=== PATIENT | female | born 1950 | race Caucasian/White ===

== ENCOUNTER 2019-04-01 15:53 | Outpatient (RCR) | payer MEDICARE, SELFPAY ==
--- NOTE | 2019-04-01 16:37 | PTOPEVAL ---
Thank you for referring this patient to [facility]. Please review, sign, date and return this plan of care EMI. I agree with and certify that the following plan of care is medically necessary. Referring Physician Date Admitting Provider: Attending Provider: Jacob Castellano MD Referring Provider: *PT Outpatient Evaluation Start: 04/01/19 16:09 Freq: Status: Active Protocol: Document 04/01/19 16:09 J (Rec: 04/01/19 16:33 [facility] [id number]) Therapy Assessment Status Assessment Status Assessment Status Evaluation Evaluation Information Problem Diagnosis R shoulder/arm pain Onset 03/27/19 Subjective Information patient reports she has been Query Text:As Reported By Patient/ having pain in the R shoulder/ Family arm for about a year. however, she reports the pain initially was related to activity. in the past month, she has had more pain constantly with rest/ inactivity. she reports sleeping on the R side with reproduce pins/needles and pain in the R shoulder/arm. she reports tingling from shoulder to fingers. pain runs from shoulder to elbow. Prior Level of Function Comments Additional Prior Level of Function patient reports she has Comments suffered from pain and weakness for a little over a year. Pain Assessment Timing of Pain Assessment Timing of Pain Assessment Assessment Pain Scale Pain Scale Used Numeric (1 - 10) Self Report Pain Assessment Right Arm(s) Reported Pain Level 1 Pain Description Soreness Pain Frequency Acute,Chronic,Continuous Current Pain Intensity 1 Lowest Pain Intensity 1 Greatest Pain Intensity 7 Pain Aggravating Factors Exercise/Activity Pain Score Pain Score 1: Self Report Cervical and Lumbar ROM Cervical ROM Cervical Flexion (0-60) 45 Query Text:Active in Degrees Cervical Extension (0-70) 45 Query Text:Active in Degrees Upper Extremity Range of Motion Scapular/ Shoulder Range of Motion Right Reason Not Measured WNL/Left Shoulder Flexion - Active 145 Shoulder Flexion - Passive 160 Shoulder Medial Rotation - Active 45 Shoulder Lateral Rotation - Active 70 Upper Extremity Muscle Strength Testing Scapular/Shoulder Left Sh
== END 2019-06-30 23:59 | disposition home or self-care (01) ==
LOC: CHSPT 15:53
PROVIDERS: Visit Provider Internal Medicine
DX: M25.511 Pain in right shoulder (principal)
CPT/HCPCS: 97014; 97110; 97162; G0283

== ENCOUNTER 2019-09-11 07:13 | Outpatient (CLI) | payer MEDICARE, SELFPAY ==
[2019-09-11 07:38] LABS: Hematocrit 41.7 % (35.0-42.0); Mean Corpuscular HGB Conc 33.6 g/dL (32.0-36.0); Mean Corpuscular Hemoglobin 29.1 pg (27.0-31.0); Mean Corpuscular Volume 86.7 fL (78.0-102.0); Mean Platelet Volume 9.5 fl (9.2-11.8); Platelet Count Result 162 K/mm3 (150-420); Red Blood Count 4.81 M/mm3 (4.20-5.40); Red Cell Distribution Width 12.7 % (11.6-14.4); White Blood Count 3.7 K/mm3 (4.8-10.8)
[2019-09-11 07:39] LABS: Add Urine Microscopic? YES; Appearance Urine Clear (Clear); Bilirubin Urine Negative (Negative); Blood Urine Negative (Negative); Color Urine Yellow (Yellow); Glucose Urine UA Negative (Negative); Ketones Urine Negative (Negative); Leukocyte Esterase Ur Trace (Negative); Nitrate Urine Negative (Negative); Protein Urine Negative (Negative); Specific Grav Ur 1.015 (1.010-1.020); Urobilinogen Urine 0.2 mg/dL (0.2-1.0)
[2019-09-11 07:44] LABS: RBC Urine 0-2 /hpf (0-2); Squamous Epithelial Cell Urine Moderate /hpf (Few); WBC Urine 0-3 /hpf (0-3)
[2019-09-11 07:45] LABS: Bacteria Urine Trace /hpf
[2019-09-11 07:49] LABS: Creatinine Urine 57.48 mg/dL (40-278); Hemoglobin A1C 6.4 % (<5.7); MALB Creatinine Ratio 10.2 mg/g (0-30); Microalbumin Urine Random 5.9 mg/L
[2019-09-11 07:58] LABS: Band Neutrophils Percent 0 % (0-6); Basophils Absolute Manual 0.03 K/mm3 (0-0.1); Basophils Percent Manual 1 % (0-1); Eosinophils Absolute Manual 0.14 K/mm3 (0.02-0.5); Eosinophils Percent Manual 4 % (1-6); Lymphocytes Absolute Manual 1.77 K/mm3 (1.1-4.5); Lymphocytes Percent Manual 48 % (18-44); Monocytes Absolute Manual 0.37 K/mm3 (0.1-0.90); Monocytes Percent Manual 10 % (3-9); Neutrophils Absolute Manual 1.36 K/mm3 (1.7-7.2); Neutrophils Percent Manual 37 % (46-73); Platelet Estimate Adequate (Adequate); Total Cells Counted 100
[2019-09-11 08:58] LABS: Alanine Aminotransferase 39 U/L (14-59); Albumin Level 3.8 g/dL (3.4-5.0); Alkaline Phosphatase 165 U/L (46-116); Anion Gap 11.4 mmol/L (7-16); Aspartate Amino Transferase 40 U/L (15-37); Bilirubin,Total 0.7 mg/dL (0.00-1.00); Blood Urea Nitrogen 15 mg/dL (7-18); Calcium 9.5 mg/dL (8.5-10.1); Carbon Dioxide 29 mmol/L (21-32); Chloride 101 mmol/L (98-108); Cholesterol 199 mg/dL (0-200); Creatine Kinase 58 U/L (26-192); Estimated Glomerular Filt Rate > 60; GGT 144 U/L (5-55); Glucose 124 mg/dL (70-99); HDL Direct 74 mg/dL (40-60); LDL Cholesterol Calculated 112 mg/dL (<130); Osmolality Calculated 285 mOsm/kg (285-295); Potassium 4.4 mmol/L (3.5-5.1); Sodium 137 mmol/L (136-145); Thyroid Stimulating Hormone 2.19 uIU/mL (0.36-3.74); Total Protein 7.2 g/dL (6.4-8.2); Triglycerides 65 mg/dL (0-150)
[2019-09-13 08:41] LABS: Vitamin D 25 Hydroxy 25 ng/mL (30-100)
[2019-09-16 17:28] LABS: Alpha Fetoprotein Tumor Marker 3.3 ng/mL (<6.1)
== END 2019-09-11 07:14 | disposition home or self-care (01) ==
PROVIDERS: PCP Internal Medicine; Visit Provider Internal Medicine
DX: E78.2 Mixed hyperlipidemia (principal); M81.0 Age-related osteoporosis without current pathological fracture; K74.60 Unspecified cirrhosis of liver; E11.9 Type 2 diabetes mellitus without complications; R53.82 Chronic fatigue, unspecified
CPT/HCPCS: 36415; 80053; 80061; 81001; 82043; 82105; 82306; 82550; 82977; 83036; 84439; 84443; 85025; 85610

== ENCOUNTER 2020-01-26 10:29 | Outpatient (CLI) | payer MEDICARE, SELFPAY ==
--- NOTE | ~2020-01-26 | MM_ITS ---
EXAMINATION: MM screening lance BI w kami HISTORY: Screening mammogram TECHNIQUE: Craniocaudal and mediolateral oblique 3-D tomosynthesis images were obtained and synthetic 2-D images were generated. CAD analysis was submitted and interpreted. COMPARISON: 01/20/2019, 01/08/2018, 12/28/2016 bilateral digital screening mammogram examinations BREAST PARENCHYMAL COMPOSITION: There are scattered areas of fibroglandular density. FINDINGS: There is an irregular up to approximately 11 mm opacity in the inner aspect of the upper in ner quadrant of the left breast. Diagnostic left mammogram and left breast ultrasound examination are recommended. Otherwise there Is no evidence of suspicious mass, calcification, or architectural distortion to sugg est malignancy in either breast. There has been no other suspicious interval change. IMPRESSION: 1. Irregular mass in inner aspect of upper inner quadrant of left breast 2. Diagnostic left mammogram and left breast ultrasound examination are recommended BI-RADS Category 0: Incomplete: Needs additional imaging evaluation. Reviewed, dictated and finalized at location A. IMPRESSION: 1. Irregular mass in inner aspect of upper inner quadrant of left breast 2. Diagnostic left mammogram and left breast ultrasound examination are recomme nded BI-RADS Category 0: Incomplete: Needs additional imaging evaluation.
== END 2020-01-26 10:30 | disposition home or self-care (01) ==
LOC: CHSIMG 10:30
PROVIDERS: PCP Internal Medicine; Visit Provider Internal Medicine
DX: Z12.31 Encounter for screening mammogram for malignant neoplasm of breast (principal)
CPT/HCPCS: 77063; 77067

== ENCOUNTER 2020-02-06 09:42 | Outpatient (CLI) | payer MEDICARE, SELFPAY ==
--- NOTE | ~2020-02-06 | MMUS_ITS ---
EXAMINATION: MM diagnostic lance LT w kami, US breast LT limited HISTORY: Possible left breast mass on screening mammogram TECHNIQUE: Additional 3-D tomosynthesis images of the left breast were performed and synthetic 2-D im ages were generated. CAD analysis was submitted and interpreted. High resolution limited left breast ultrasound was performed. COMPARISON: 01/26/2020, 01/20/2019, 01/08/2018, 12/28/2016 FINDINGS: MAMMOGRAPHIC FINDINGS: No definite persistent mass is identified with spot compression views of the left breast in the area questioned on screening mammogram. There is return to baseline appearance. ULTRASOUND: There is no evidence of focal abnormal solid or cystic lesion in the vicinity of the mammographic fin ding in question. IMPRESSION: 1. No mammographic or sonographic evidence of malignancy. 2. Recommend routine screening mammography in one year. BI-RADS Category 1: Negative Reviewed, dictated and finalized at location A. IMPRESSION: 1. No mammographic or sonographic evidence of malignancy. 2. Recommend routine screening mammography in one year. BI-RADS Category 1: Negative
== END 2020-02-06 09:43 | disposition home or self-care (01) ==
LOC: CHSIMG 09:43
PROVIDERS: PCP Internal Medicine; Visit Provider Internal Medicine
DX: R92.8 Other abnormal and inconclusive findings on diagnostic imaging of breast (principal)
CPT/HCPCS: 76642; 77061; 77065; G0279

== ENCOUNTER 2020-03-17 07:36 | Outpatient (CLI) | payer MEDICARE, SELFPAY ==
[2020-03-17 07:52] LABS: Add Urine Microscopic? YES; Appearance Urine Clear (Clear); Bilirubin Urine Negative (Negative); Blood Urine Negative (Negative); Color Urine Yellow (Yellow); Glucose Urine UA Negative (Negative); Hematocrit 42.8 % (35.0-42.0); Ketones Urine Negative (Negative); Leukocyte Esterase Ur 1+ (Negative); Mean Corpuscular HGB Conc 32.7 g/dL (32.0-36.0); Mean Corpuscular Hemoglobin 28.7 pg (27.0-31.0); Mean Corpuscular Volume 87.9 fL (78.0-102.0); Mean Platelet Volume 9.5 fl (9.2-11.8); Nitrate Urine Negative (Negative); Platelet Count Result 170 K/mm3 (150-420); Protein Urine Negative (Negative); Red Blood Count 4.87 M/mm3 (4.20-5.40); Red Cell Distribution Width 12.6 % (11.6-14.4); Specific Grav Ur 1.015 (1.010-1.020); White Blood Count 3.2 K/mm3 (4.8-10.8)
[2020-03-17 07:57] LABS: Bacteria Urine Trace /hpf; RBC Urine 0-2 /hpf (0-2); Squamous Epithelial Cell Urine Moderate /hpf (Few)
[2020-03-17 08:06] LABS: Hemoglobin A1C 5.8 % (<5.7)
[2020-03-17 08:21] LABS: Band Neutrophils Percent 2 % (0-6); Neutrophils Absolute Manual 1.72 K/mm3 (1.7-7.2); Neutrophils Percent Manual 52 % (46-73); Total Cells Counted 100
[2020-03-17 08:22] LABS: Eosinophils Absolute Manual 0.03 K/mm3 (0.02-0.5); Eosinophils Percent Manual 1 % (1-6); Lymphocytes Absolute Manual 1.28 K/mm3 (1.1-4.5); Lymphocytes Percent Manual 40 % (18-44); Metamyelocytes Percent 1 %; Monocytes Absolute Manual 0.12 K/mm3 (0.1-0.90); Monocytes Percent Manual 4 % (3-9); Platelet Estimate Adequate (Adequate)
[2020-03-17 09:02] LABS: Alanine Aminotransferase 35 U/L (14-59); Albumin Level 4.1 g/dL (3.4-5.0); Alkaline Phosphatase 159 U/L (46-116); Anion Gap 8 mmol/L (8-16); Aspartate Amino Transferase 40 U/L (15-37); Bilirubin,Total 0.8 mg/dL (0.00-1.00); Blood Urea Nitrogen 14 mg/dL (7-18); Calcium 9.2 mg/dL (8.5-10.1); Carbon Dioxide 29 mmol/L (21-32); Chloride 101 mmol/L (98-108); Cholesterol 214 mg/dL (0-200); Creatine Kinase 100 U/L (26-192); Estimated Glomerular Filt Rate > 60; Glucose 135 mg/dL (70-99); HDL Direct 79 mg/dL (40-60); LDL Cholesterol Calculated 116 mg/dL (<130); Osmolality Calculated 288 mOsm/kg (285-295); Potassium 4.1 mmol/L (3.5-5.1); Sodium 138 mmol/L (136-145); Total Protein 7.4 g/dL (6.4-8.2); Triglycerides 96 mg/dL (0-150)
[2020-03-17 13:43] LABS: Creatinine Urine 95.32 mg/dL (40-278); MALB Creatinine Ratio 7.6 mg/g (0-30); Microalbumin Urine Random 7.3 mg/L
[2020-03-20 12:57] LABS: Vitamin D 25 Hydroxy 26 ng/mL (30-100)
== END 2020-03-17 07:37 | disposition home or self-care (01) ==
LOC: CHSLAB 07:38
PROVIDERS: PCP Internal Medicine; Visit Provider Internal Medicine
DX: E78.2 Mixed hyperlipidemia (principal); E11.9 Type 2 diabetes mellitus without complications; M81.0 Age-related osteoporosis without current pathological fracture
CPT/HCPCS: 36415; 80053; 80061; 81001; 82043; 82306; 82550; 83036; 85025

== ENCOUNTER 2020-10-05 07:44 | Outpatient (CLI) | payer MEDICARE, SELFPAY ==
[2020-10-05 08:14] LABS: Hematocrit 40.3 % (35.0-42.0); Hemoglobin 13.5 g/dL (11.7-13.8); Mean Corpuscular HGB Conc 33.5 g/dL (32.0-36.0); Mean Corpuscular Hemoglobin 29.5 pg (27.0-31.0); Mean Platelet Volume 9.6 fl (9.2-11.8); Platelet Count Result 163 K/mm3 (150-420); Red Blood Count 4.58 M/mm3 (4.20-5.40); Red Cell Distribution Width 12.6 % (11.6-14.4); White Blood Count 3.4 K/mm3 (4.8-10.8)
[2020-10-05 08:17] LABS: Add Urine Microscopic? YES; Appearance Urine Clear (Clear); Bilirubin Urine Negative (Negative); Blood Urine Negative (Negative); Color Urine Yellow (Yellow); Glucose Urine UA Negative (Negative); Ketones Urine Negative (Negative); Leukocyte Esterase Ur 2+ (Negative); Nitrate Urine Negative (Negative); Protein Urine Negative (Negative)
[2020-10-05 08:22] LABS: Bacteria Urine 1+ /hpf; RBC Urine None seen /hpf (0-2); Squamous Epithelial Cell Urine Few /hpf (Few)
[2020-10-05 08:25] LABS: Hemoglobin A1C 6.4 % (<5.7)
[2020-10-05 08:27] LABS: Prothrombin Time 10.3 Seconds (9.50-12.10)
[2020-10-05 08:52] LABS: MALB Creatinine Ratio 14.8 mg/g (0-30); Microalbumin Urine Random < 13.0 mg/L
[2020-10-05 08:55] LABS: Band Neutrophils Percent 0 % (0-6); Lymphocytes Absolute Manual 1.83 K/mm3 (1.1-4.5); Lymphocytes Percent Manual 54 % (18-44); Monocytes Absolute Manual 0.23 K/mm3 (0.1-0.90); Monocytes Percent Manual 7 % (3-9); Neutrophils Absolute Manual 1.29 K/mm3 (1.7-7.2); Neutrophils Percent Manual 38 % (46-73); Total Cells Counted 100
[2020-10-05 08:56] LABS: Eosinophils Absolute Manual 0.03 K/mm3 (0.02-0.5); Eosinophils Percent Manual 1 % (1-6); Platelet Estimate Adequate (Adequate)
[2020-10-05 09:03] LABS: Alanine Aminotransferase 33 U/L (14-59); Albumin Level 3.7 g/dL (3.4-5.0); Alkaline Phosphatase 149 U/L (46-116); Anion Gap 5 mmol/L (8-16); Aspartate Amino Transferase 33 U/L (15-37); Bilirubin,Total 0.8 mg/dL (0.00-1.00); Blood Urea Nitrogen 17 mg/dL (7-18); Calcium 9.1 mg/dL (8.5-10.1); Carbon Dioxide 31 mmol/L (21-32); Chloride 103 mmol/L (98-108); Cholesterol 196 mg/dL (0-200); Creatine Kinase 96 U/L (26-192); Estimated Glomerular Filt Rate > 60; Glucose 142 mg/dL (70-99); HDL Direct 71 mg/dL (40-60); LDL Cholesterol Calculated 114 mg/dL (<130); Osmolality Calculated 291 mOsm/kg (285-295); Potassium 4.7 mmol/L (3.5-5.1); Sodium 139 mmol/L (136-145); Triglycerides 56 mg/dL (0-150)
[2020-10-08 11:22] LABS: Vitamin D 25 Hydroxy 25 ng/mL (30-100)
[2020-10-08 22:54] LABS: Alpha Fetoprotein Tumor Marker 2.8 ng/mL (<6.1)
== END 2020-10-05 07:45 | disposition home or self-care (01) ==
LOC: CHSLAB 07:46
PROVIDERS: PCP Internal Medicine; Visit Provider Internal Medicine
DX: E78.2 Mixed hyperlipidemia (principal); I10 Essential (primary) hypertension; E11.9 Type 2 diabetes mellitus without complications; K74.60 Unspecified cirrhosis of liver; M81.0 Age-related osteoporosis without current pathological fracture
CPT/HCPCS: 36415; 80053; 80061; 81001; 82043; 82105; 82306; 82550; 83036; 85025; 85610

== ENCOUNTER 2020-12-07 10:20 | Outpatient (CLI) | payer MEDICARE, SELFPAY ==
[2020-12-07] MEDS: ZOLEDRONIC ACID 5 MG/100 ML 100 ML 400 MG IVPB (10:25)
[2020-12-07 10:41] VITALS: BP 126/70; PULSE 76; RESP 14; TEMP 36.6; O2SAT 97; BMI 27.6
--- NOTE | 2020-12-07 11:19 | PC.NURSE ---
Patient here for yearly Reclast infusion. Education on Medication given to patient. No concerns voiced. Reclast infusion administered see JUL. Tolerated well. Safe exit of hospital.
== END 2020-12-07 10:21 | disposition home or self-care (01) ==
LOC: CHSTREATRM 10:21
PROVIDERS: PCP Internal Medicine; Visit Provider Internal Medicine
DX: M81.0 Age-related osteoporosis without current pathological fracture (principal)
CPT/HCPCS: 96365; J3489

== ENCOUNTER 2021-02-07 07:58 | Outpatient (CLI) | payer MEDICARE, SELFPAY ==
--- NOTE | ~2021-02-07 | MM_ITS ---
EXAMINATION: MM screening [facility] BI w kami HISTORY: Screening mammogram TECHNIQUE: Craniocaudal and mediolateral oblique 3-D tomosynthesis images were obtained and synthetic 2-D images were generated. CAD analysis was submitted and interpreted. COMPARISON: 02/06/2020, 01/26/2020, 01/20/2019 BREAST PARENCHYMAL COMPOSITION: There are scattered areas of fibroglandular density. FINDINGS: Scattered benign-appearing calcifications are present. There is no evidence of suspicious m ass, calcification, or architectural distortion to suggest malignancy in either breast. There has bee n no suspicious interval change. IMPRESSION: 1. No mammographic evidence of malignancy. 2. Recommend routine screening mammography in one year. BI-RADS Category 2: Benign finding(s). Reviewed, dictated and finalized at location A.
== END 2021-02-07 07:59 | disposition home or self-care (01) ==
LOC: CHSIMG 07:59
PROVIDERS: PCP Internal Medicine; Visit Provider Internal Medicine
DX: Z12.31 Encounter for screening mammogram for malignant neoplasm of breast (principal)
CPT/HCPCS: 77063; 77067

== ENCOUNTER 2021-03-18 18:20 | Emergency (ER) | payer MEDICARE, SELFPAY ==
--- NOTE | ~2021-03-18 | XR_ITS ---
EXAMINATION: XR wrist RT min 3V EXAM DATE: 03/18/2021 20:19 INDICATION: Fall today, right wrist pain. TECHNIQUE: Right wrist frontal, frontal with slight ulnar deviation, oblique and lateral projections obtained and reviewed. There is no prior study for comparison. FINDINGS: Acute closed posttraumatic comminuted right radial distal metaphyseal fracture extending in to the distal radioulnar joint and also probably into the radiocarpal joint. Mild posterior angulatio n and posterior displacement of a dorsal fragment. There is acute ulnar styloid avulsion fracture. Th ere is overlying soft tissue swelling. Carpal bones unremarkable. There is chondrocalcinosis. Chondrocalcinosis can be an age related findin g, but with other possible etiologies including CPPD, parathyroid disorders, hemochromatosis, gout. IMPRESSION: 1. Acute comminuted right distal radial metaphyseal intra-articular fracture. 2. Acute ulnar styloid avulsion fracture. Reviewed, dictated and finalized at location A. [employer] HOME SERV[employer]
[2021-03-18 18:55] VITALS: BP 139/67; PULSE 58; RESP 14; TEMP 36.9; O2SAT 99
--- NOTE | 2021-03-18 19:25 | ED.UPPEXIN ---
HPI - Extremity Injury (Upper) General Chief Complaint: Extremity Injury, Upper Stated Complaint: injury to rt wrist Time Seen by Provider: 03/18/21 19:25 Source: patient Mode of arrival: ambulatory Limitations: no limitations History of Present Illness HPI narrative: 71-year-old woman with a history of type 2 diabetes, liver disease, comes in today complaining of right wrist pain that started approximately 2:30 this afternoon after she tripped and fell on her outstretched right hand. She has had pain in her wrist since. She denies any numbness or tingling. She denies any prior right wrist surgeries or fractures. She denies any other injury and had no preceding lightheadedness, dizziness, chest pain or palpitations. MD complaint: injury to: right and wrist Onset (ago): hour(s) (5) Other injuries: none Place: home Severity: moderate Relieving factors: immobilization and rest Exacerbating factors: movement of extremity and other ( palpation) Context: fall Associated symptoms: denies other symptoms Treatments prior to arrival: NSAIDS Related Data Home Medications Medication Instructions Recorded Confirmed alendronate 70 mg PO WEEKLY 12/07/20 03/18/21 atorvastatin 10 mg PO DAILY 12/07/20 03/18/21 calcitriol 0.5 mcg PO DAILY 12/07/20 03/18/21 metformin 500 mg PO BID 12/07/20 03/18/21 nadolol 20 mg PO DAILY 12/07/20 03/18/21 pantoprazole 20 mg PO QAM 12/07/20 03/18/21 Allergies Allergy/AdvReac Type Severity Reaction Status Date / Time Sulfa (Sulfonamide AdvReac Hives Verified 03/18/21 19:22 Antibiotics) Review of Systems Review of Systems: All systems reviewed & are unremarkable except as noted in HPI and below Constitutional: Constitutional: Denies chills and Denies fever(s) Cardiovascular: Cardiovascular: Denies chest pain and Denies rapid heart rate Respiratory: Respiratory: Denies cough and Denies dyspnea Gastrointestinal: Gastrointestinal: Denies nausea and Denies vomiting Musculoskeletal: Musculoskeletal: Denies back pain, Reports arthralgias and Reports joint swelling Integumentary/Breasts: Skin/Breast: Denies pruritus, Denies erythema and Denies rash Hematologic/Lymphatic: Hematologic/Lymphatic: Denies easy bleeding and Denies easy bruising PMF Past Medical History Medical History (Updated 03/18/21 @ 20:46 by Benjamin Aguiar MD) Dyslipidemia GERD (gastroesophageal reflux disease) Hypertension Liver disease Type 2 diabetes mellitus Surgical History Surgical History (Updated 03/18/21 @ 19:36 by Benjamin Aguiar MD) History of cholecystectomy History of tonsillectomy Exam Const: General: healthy appearing and alert Orientation/consciousness: patient oriented x3 Limitations: no limitations Other: [id number]-uw-[id number] acute distress. Eyes: Conjunctivae: conjunctivae normal Pupils: Equal, round and reactive pupils present EOM: EOMs intact bilaterally Resp: Effort & Inspection: normal respiratory effort and not labored Auscultation: clear to auscultation bilaterally, no rales, no rhonchi and no wheezes Cardio: Rate: regular rate Rhythm: regular rhythm Heart sounds: no murmurs Skin: General skin exam: normal color, no jaundice and no pallor Rashes: no rashes Neuro: General: patient oriented x3, moves all extremities, no focal motor deficits and CN's II-XI intact bilaterally Speech: normal speech Gait exam (Neuro): Normal gait present Extrem: General: normal to inspection and no clubbing, cyanosis or edema Other: Tenderness over the right distal radius where there is also some mild swelling. There is no tenderness over the carpals, metacarpals, fingers, proximal forearm, elbow, humerus or shoulder. Decreased range of motion at the right wrist otherwise range of motion of the upper extremities is normal. Distal neurovascular exam is intact. Psych: Appearance: grossly normal and well kempt Mental Status: mental status grossly normal Affect: normal affect Attitude: alexander
[2021-03-18] MEDS: HYDROcodone/acetaminophen (*CRX) 5-325 MG TABLET 1 TAB PO (19:41)
--- NOTE | 2021-03-18 20:44 | PC.NURSE ---
Call to [facility] for oncall ortho per ERP request. Dr Nickerson production finisher for ortho and cell given to contact Dr Nickerson for consult.
[2021-03-18 21:11] VITALS: BP 143/69; PULSE 58; RESP 20; TEMP 36.6; O2SAT 97
== END 2021-03-18 21:13 | disposition home or self-care (01) ==
PROVIDERS: Emergency Provider Emergency Medicine; PCP Internal Medicine
DX: S52.611A Displaced fracture of right ulna styloid process, initial encounter for closed fracture (principal); S52.571A Other intraarticular fracture of lower end of right radius, initial encounter for closed fracture; E78.5 Hyperlipidemia, unspecified; K21.9 Gastro-esophageal reflux disease without esophagitis; I10 Essential (primary) hypertension; E11.9 Type 2 diabetes mellitus without complications
CPT/HCPCS: 29125; 73110; 99283; 99284; A9270

== ENCOUNTER 2021-04-08 08:01 | Outpatient (RCR) | payer MEDICARE, SELFPAY ==
--- NOTE | 2021-04-08 08:44 | OTOPEVAL ---
Thank you for referring Agnieszka Sultana to [facility].? The patient is scheduled to be seen for therapy? ____x/week for ___ weeks. Please review, sign, date and return this plan of care EMI. I agree with and certify that the following plan of care is medically necessary. Referring Physician Date Admitting Provider: Attending Provider: Roosevelt Gan MD Referring Provider: *OT Outpatient Evaluation Start: 04/08/21 07:21 Freq: Status: Active Protocol: Document 04/08/21 07:23 [facility] [place] (Rec: 04/08/21 08:42 [facility] [id number]) Therapy Assessment Status Assessment Status Assessment Status Evaluation Outpatient Past Medical History Cardiovascular History Hx Hypercholesterolemia Yes Gastrointestinal History Hx Cholecystectomy Yes Hx Gastroesophageal Reflux Disease Yes Hx Other Gastrointestinal Disorders Yes: liver disease Endocrine History Hx Diabetes Yes HEENT History Hx Tonsillectomy Yes Reproductive History Hx Post Menopausal Yes Evaluation Information Problem Diagnosis decreased R wrist ROM and strength Onset 03/18/21 Cause R distal radius ORIF Subjective Information Patient reports that she fell Query Text:As Reported By Patient/ on 03/18/21 and broke her R Family wrist. She opted to have surgery and had surgery on . Patient reports that recovery has been going well. She states that she has been able to use it to perform most ADLs. Patient has a wrist cock up orthosis and sling that she is intermittently wearing. Patent is unable to lift, twist, pull or push with her R hand (dominant). She states that eating and brushing her teeth are both awkward. She states that her R hand tires easily with writing and playing her violin . QuickDASH: 65.9% Diagnostic Tests X-Rays For This Problem Yes Prior Level of Function Activity Level (Last 3 Months) Occupation retired Hand Dominance Right Activity of Daily Living Ability Independent Indoor/Home Mobility Independent Community Mobility Independent Stairs Ability Independent Functional Cognition (Planning, Shopping Independent , Primo
--- NOTE | 2021-04-26 13:33 | OTOPEVAL ---
Thank you for referring Agnieszka Sultana to [facility].? The patient is scheduled to be seen for therapy? ____x/week for ___ weeks. Please review, sign, date and return this plan of care EMI. I agree with and certify that the following plan of care is medically necessary. Referring Physician Date Admitting Provider: Attending Provider: Shane Graham NP Referring Provider: *OT Outpatient Evaluation Start: 04/08/21 07:21 Freq: Status: Active Protocol: Document 04/26/21 07:30 [facility] [place] (Rec: 04/26/21 13:33 [facility] [id number]) Therapy Assessment Status Assessment Status Assessment Status Progress Outpatient Past Medical History Cardiovascular History Hx Hypercholesterolemia Yes Gastrointestinal History Hx Cholecystectomy Yes Hx Gastroesophageal Reflux Disease Yes Hx Other Gastrointestinal Disorders Yes: liver disease Endocrine History Hx Diabetes Yes HEENT History Hx Tonsillectomy Yes Reproductive History Hx Post Menopausal Yes Evaluation Information Problem Subjective Information Patient states that she is Query Text:As Reported By Patient/ able to do more and more with Family her R hand every day. She notes occasional achiness. Patient reports that she was able to brush her teeth more accurately this morning. Pain Assessment Timing of Pain Assessment Timing of Pain Assessment Re-assessment Self Report Self Report Pain Level 0 Pain Score Pain Score 0: Self Report Upper Extremity Range of Motion Elbow/Forearm Range of Motion Right Forearm Supination - Active 55 Wrist Range of Motion Right Wrist Flexion - Active 40 Wrist Extension - Active 55 Wrist Radial Deviation - Active 20 Wrist Ulnar Deviation - Active 20 Hand Field Hockey Coach/Pinch Strength Assessment Hand Right Field Hockey Coach Strength (lbs) 21 Left Field Hockey Coach Strength (lbs) 42 Sensation Assessment Location Right 2 Point Discrimination Comments patient reports occasional numbness in base of palm and occasional tingling that wakes her up at night. Extremity Circumference Assessment Circumference Assessment Circumference Comments R wrist: 19.0 cm General Exercise General Exercises Exercise Comments see treatment note for details Manual Therapy Manual Therapy Treatment Comments see treatment note for details Query Text:Include Technique and Result of Technique Modalities Electrical Stimulation Right Wrist Response to Treatment Comments see treatment note for details OT Clinical Summary Clinical Summary
--- NOTE | 2021-05-16 10:00 | OTOPEVAL ---
Thank you for referring Agnieszka Sultana to [facility].? The patient is scheduled to be seen for therapy? ____x/week for ___ weeks. Please review, sign, date and return this plan of care EMI. I agree with and certify that the following plan of care is medically necessary. Referring Physician Date Admitting Provider: Attending Provider: Shane Graham NP Referring Provider: AdrianOT Outpatient Evaluation Start: 04/08/21 07:21 Freq: Status: Active Protocol: Document 05/16/21 09:00 [facility] [place]Rec: 05/16/21 09:59 [facility] [id number]) Therapy Assessment Status Assessment Status Assessment Status Discharge Outpatient Past Medical History Cardiovascular History Hx Hypercholesterolemia Yes Gastrointestinal History Hx Cholecystectomy Yes Hx Gastroesophageal Reflux Disease Yes Hx Other Gastrointestinal Disorders Yes: liver disease Endocrine History Hx Diabetes Yes HEENT History Hx Tonsillectomy Yes Reproductive History Hx Post Menopausal Yes Evaluation Information Problem Subjective Information Patient reports that overall Query Text:As Reported By Patient/ her R wrist is doing very well Family . She states that occasionally it will bother her if she does to much but pain decreases with rest. Patient is in agreement with discharge plan. Pain Assessment Timing of Pain Assessment Timing of Pain Assessment Pre-Treatment Self Report Self Report Pain Level 0 Pain Score Pain Score 0: Self Report Upper Extremity Range of Motion Elbow/Forearm Range of Motion Right Forearm Supination - Active 60 Wrist Range of Motion Right Wrist Flexion - Active 40 Wrist Extension - Active 55 Wrist Radial Deviation - Active 20 Wrist Ulnar Deviation - Active 20 Hand Admeasurer/Pinch Strength Assessment Hand Right Admeasurer Strength (lbs) 28 Extremity Circumference Assessment Circumference Assessment Circumference Comments R wrist: 18.5 cm General Exercise General Exercises Side Right Exercise Description wrist maze x 3 min Query Text:Record Sets, Reps, pink putty resisting: standard Resistance, and Position turn with large knob, 10 reps x 2 and functional pull with L-bar x 10 reps 2# resisting: R wrist extension, supination and radial deviation, 20 reps x 1 set red thera-bar resisting bilateral gr
== END 2021-05-16 15:14 | disposition home or self-care (01) ==
LOC: CHSOT 08:01
PROVIDERS: PCP Internal Medicine; Visit Provider Nurse Practitioner Adult Health
DX: Z98.890 Other specified postprocedural states (principal)
CPT/HCPCS: 97014; 97110; 97140; 97165; G0283

== ENCOUNTER 2021-04-13 07:50 | Outpatient (CLI) | payer MEDICARE, SELFPAY ==
[2021-04-13 08:02] LABS: Basophils Absolute Auto 0.05 K/mm3 (0.00-0.10); Basophils Percent Auto 1.2 % (0.0-1.0); Eosinophils Absolute Auto 0.25 K/mm3 (0.02-0.50); Eosinophils Percent Auto 6.2 % (1.0-6.0); Hematocrit 40.8 % (35.0-42.0); Hemoglobin 13.6 g/dL (11.7-13.8); Immature Granulocyte Absolute 0.02 K/mm3 (0.00-0.00); Immature Granulocyte Percent A 0.5 % (0.0-0.0); Lymphocytes Absolute Auto 1.86 K/mm3 (1.10-4.50); Lymphocytes Percent Auto 46.2 % (18.0-42.0); Mean Corpuscular HGB Conc 33.3 g/dL (32.0-36.0); Mean Corpuscular Hemoglobin 29.4 pg (27.0-31.0); Mean Corpuscular Volume 88.3 fL (78.0-102.0); Mean Platelet Volume 9.4 fl (9.2-11.8); Monocytes Percent Auto 9.9 % (2.0-11.0); Neutrophils Absolute Auto 1.5 K/mm3 (1.7-7.2); Platelet Count Result 164 K/mm3 (150-420); Red Blood Count 4.62 M/mm3 (4.20-5.40); Red Cell Distribution Width 12.6 % (11.6-14.4)
[2021-04-13 08:26] LABS: Add Urine Microscopic? YES; Appearance Urine Clear (Clear); Bilirubin Urine Negative (Negative); Blood Urine Negative (Negative); Color Urine Light Yellow (Yellow); Glucose Urine UA Negative (Negative); Ketones Urine Negative (Negative); Leukocyte Esterase Ur Trace (Negative); Nitrate Urine Negative (Negative); Protein Urine Negative (Negative); Specific Grav Ur 1.015 (1.010-1.020); pH Urine 7.5 (5.0-8.0)
[2021-04-13 08:30] LABS: Hemoglobin A1C 6.7 % (<5.7)
[2021-04-13 08:42] LABS: Creatinine Urine 55.38 mg/dL (40-278); MALB Creatinine Ratio 23.4 mg/g (0-30); Microalbumin Urine Random < 13.0 mg/L
[2021-04-13 09:04] LABS: Bacteria Urine Trace /hpf; RBC Urine None seen /hpf (0-2); Squamous Epithelial Cell Urine Few /hpf (Few); WBC Urine 0-3 /hpf (0-3)
[2021-04-13 09:15] LABS: Alanine Aminotransferase 43 U/L (14-59); Albumin Level 3.7 g/dL (3.4-5.0); Alkaline Phosphatase 188 U/L (46-116); Anion Gap 8 mmol/L (8-16); Aspartate Amino Transferase 38 U/L (15-37); Bilirubin,Total 0.9 mg/dL (0.00-1.00); Blood Urea Nitrogen 14 mg/dL (7-18); Calcium 9.2 mg/dL (8.5-10.1); Carbon Dioxide 30 mmol/L (21-32); Chloride 102 mmol/L (98-108); Cholesterol 216 mg/dL (0-200); Creatine Kinase 48 U/L (26-192); Estimated Glomerular Filt Rate > 60; Glucose 142 mg/dL (70-99); HDL Direct 69 mg/dL (40-60); LDL Cholesterol Calculated 119 mg/dL (<130); Osmolality Calculated 292 mOsm/kg (285-295); Potassium 4.4 mmol/L (3.5-5.1); Sodium 140 mmol/L (136-145); Total Protein 7.1 g/dL (6.4-8.2); Triglycerides 139 mg/dL (0-150)
[2021-04-16 13:40] LABS: Vitamin D 25 Hydroxy 23 ng/mL (30-100)
== END 2021-04-13 07:51 | disposition home or self-care (01) ==
LOC: CHSLAB 07:51
PROVIDERS: PCP Internal Medicine; Visit Provider Internal Medicine
DX: E78.2 Mixed hyperlipidemia (principal); M81.0 Age-related osteoporosis without current pathological fracture; K74.60 Unspecified cirrhosis of liver; E11.9 Type 2 diabetes mellitus without complications
CPT/HCPCS: 36415; 80053; 80061; 81001; 82043; 82306; 82550; 83036; 85025

== ENCOUNTER 2021-04-18 13:21 | Outpatient (CLI) | payer MEDICARE, SELFPAY ==
--- NOTE | ~2021-04-18 | DEXA_ITS ---
Bone Density Report Name: MED RCANDALL Age: 71 Sex: Female Ethnicity: White Date of : 1950 Indication: postmenopausal; screening for osteoporosis; height loss; prior fracture; Referring Provider: Jacob Castellano Study: Bone densitometry was performed. Exam Date: April 18, 2021 Accession number: [id number] Bone Density: Region BMD T-score Z-score Classification AP Spine(L1-L4) 1.119 0.7 2.7 Normal Femoral Neck (Left) 0.753 -0.9 0.9 Normal Total Hip (Left) 0.807 -1.1 0.4 Osteopenia Femoral Neck (Right) 0.776 -0.7 1.1 Normal Total Hip (Right) 0.776 -1.4 0.1 Osteopenia Femoral Neck Mean 0.765 -0.8 1.0 Normal Total Hip Mean 0.792 -1.2 0.2 Osteopenia World Health Organization criteria for BMD impression classify patients as: Normal (T-score at or above -1.0), Osteopenia (T-score between -1.0 and -2.5), or Osteoporosis (T-score at or below -2.5). 10-year Fracture Risk: FRAX not reported because: Treated for osteoporosis Clinical Information Provided by Patient: Has had a low trauma fracture Is being treated for osteoporosis Has used the following medications: Reclast (i.e. zoledronate), Vitamin D, Calcium, caloitrol Patient maximum height was 67 Menopause Age: 60 No regular weight bearing exercise Drinks caffeinated beverages Onset of menses at age 14 Number of children 3 Impression: The patient has low bone mass, based on the Right Total Hip T-score. The patient has risk factors, including: previous fracture. Discussion: It is important to ask patients whether they are taking their medications and to encourage continued and appropriate compliance with their osteoporosis therapies to reduce fracture risk. It is also important to review their risk factors and encourage appropriate calcium and vitamin D intakes, exercise, fall prevention and other lifestyle measures. Follow-Up: Consider a repeat BMD and Vertebral Fracture Assessment (VFA) exam in 2 years or sooner if medically necessary, to reassess this patient's status. Reported by: Dr. Juanito Giraldo on 04/18/2021 1:57:00 PM. Reviewed, dictated and finalized at location AAnn-Marie MARTINEZ
== END 2021-04-18 13:22 | disposition home or self-care (01) ==
PROVIDERS: PCP Internal Medicine; Visit Provider Internal Medicine
DX: M81.0 Age-related osteoporosis without current pathological fracture (principal)
CPT/HCPCS: 77080

== ENCOUNTER 2021-04-22 08:26 | Outpatient (CLI) | payer MEDICARE, SELFPAY ==
--- NOTE | ~2021-04-22 | XR_ITS ---
EXAMINATION: XR hip BI wo pelvis EXAM DATE: 04/22/2021 08:47 INDICATION: Osteoarthritis B/L Hips, frequent falls. TECHNIQUE: Each hip imaged independently (separate right and also left hip) 'frog leg' and frontal p rojections for interpretation. Compared to prior right hip x-ray from 02/06/2012 FINDINGS: No radiographic evidence of hip avascular necrosis. There is moderate symmetric bilateral primary osteoarthritis. There are no acute fractures or dislocations identified. There is no subcuta neous gas. The soft tissue is unremarkable. There are no radiopaque foreign bodies. IMPRESSION: Moderate symmetric bilateral hip osteoarthritis. Reviewed, dictated and finalized at location B. [employer]
== END 2021-04-22 08:27 | disposition home or self-care (01) ==
LOC: CHSIMG 08:28
PROVIDERS: PCP Internal Medicine; Visit Provider Internal Medicine
DX: M16.0 Bilateral primary osteoarthritis of hip (principal)
CPT/HCPCS: 73521

== ENCOUNTER 2021-04-26 07:55 | Outpatient (RCR) | payer MEDICARE, SELFPAY ==
--- NOTE | 2021-04-26 09:59 | PTOPEVAL ---
Thank you for referring Agnieszka Sultana to [facility].? The patient is scheduled to be seen for therapy? ____x/week for ___ weeks. Please review, sign, date and return this plan of care EMI. I agree with and certify that the following plan of care is medically necessary. Referring Physician Date Admitting Provider: Attending Provider: Jacob Castellano MD Referring Provider: *PT Outpatient Evaluation Start: 04/26/21 08:34 Freq: Status: Active Protocol: Document 04/26/21 08:35 [facility] (Rec: 04/26/21 09:57 [facility] [id number]) Therapy Assessment Status Assessment Status Assessment Status Evaluation Outpatient Past Medical History Cardiovascular History Hx Hypercholesterolemia Yes Gastrointestinal History Hx Cholecystectomy Yes Hx Gastroesophageal Reflux Disease Yes Hx Other Gastrointestinal Disorders Yes: liver disease Endocrine History Hx Diabetes Yes HEENT History Hx Tonsillectomy Yes Reproductive History Hx Post Menopausal Yes Evaluation Information Problem Diagnosis frequent falls Onset 03/18/21 Subjective Information patient reports she fell on Query Text:As Reported By Patient/ the R hand on 03/18/21. she Family reports she fractured 2 bones in her wrist and had surgery on 03/24/21. she reports she has been attending OT for her wrist, but reports she would like to start working on her balance and now is seeking skilled PT for this issue. patient reports she has had pain in the knees. she reports she had xrays of the hips last week with degenerative changes. patient reports most frequently when she feels she will catch her toe or trip over something. Prior Level of Function Comments Additional Prior Level of Function patient reports prior to fall Comments that fractured her hand she has had falls in the past. she reports in the last year she has had 1 fall. Pain Assessment Timing of Pain Assessment Timing of Pain Assessment Assessment Pain Scale Pain Scale Used Numeric (1 - 10) Self Report Pain Assessment Right Wrist(s) Reported Pain Level 0 Pain Description Aching Pain Score Pain Score 0: Self Report In
--- NOTE | 2021-05-24 08:36 | PTOPEVAL ---
Thank you for referring Agnieszka Sultana to [facility].? The patient is scheduled to be seen for therapy? ____x/week for ___ weeks. Please review, sign, date and return this plan of care EMI. I agree with and certify that the following plan of care is medically necessary. Referring Physician Date Admitting Provider: Attending Provider: Jacob Castellano MD Referring Provider: *PT Outpatient Evaluation Start: 04/26/21 08:34 Freq: Status: Active Protocol: Document 05/24/21 08:05 [facility] (Rec: 05/24/21 08:35 [facility] [id number]) Therapy Assessment Status Assessment Status Assessment Status Discharge Outpatient Past Medical History Cardiovascular History Hx Hypercholesterolemia Yes Gastrointestinal History Hx Cholecystectomy Yes Hx Gastroesophageal Reflux Disease Yes Hx Other Gastrointestinal Disorders Yes: liver disease Endocrine History Hx Diabetes Yes HEENT History Hx Tonsillectomy Yes Reproductive History Hx Post Menopausal Yes Evaluation Information Problem Diagnosis frequent falls Onset 03/18/21 Subjective Information patient reports she feels Query Text:As Reported By Patient/ Good this date. she reports Family she still has some discomfort in the R wrist at times with pulling activities. she reports no falls. Pain Assessment Timing of Pain Assessment Timing of Pain Assessment Assessment Self Report Self Report Pain Level 0 Pain Score Pain Score 0: Self Report Lower Extremity Muscle Strength Testing General Lower Extremity Strength Gross Lower Extremity Strength 5/5 bilateral hip flex strength 5/5 bilateral knee strength 5/5 bilateral ankle strength Balance Assessment Tinetti Balance Assessment Sitting Balance Steady, safe Ability to Arise Able, w/o using arms Attempts to Arise Arises on 1st attempt Immediate Standing Balance Steady w/o support Standing Balance Narrow stance w/o support Nudged Response Steady Standing with Eyes Closed Steady Step Pattern Turning 360 Degrees Continuous steps Stability Turning 360 Degrees Steady Sitting Down Safe, steady Initiation of Gait No hesitancy Right Foot Step Length Does pass stance foot Right Foot Step Height Completely clears floor Left Foot Step Length Does pass stance foot Left Foot Step Height Completely clears floor Step Symmetry Step length appears equal Step Continuity S
== END 2021-05-24 15:18 | disposition home or self-care (01) ==
LOC: CHSPT 07:55
PROVIDERS: PCP Internal Medicine; Visit Provider Internal Medicine
DX: R29.6 Repeated falls (principal)
CPT/HCPCS: 97110; 97161; 97530

== ENCOUNTER 2021-06-28 07:46 | Outpatient (CLI) | payer MEDICARE, SELFPAY ==
--- NOTE | ~2021-06-28 | US_ITS ---
EXAMINATION: US right upper quadrant DATE: 06/28/2021 08:04 INDICATION: Ascites and cirrhosis TECHNIQUE: Multiple grayscale and Doppler ultrasound images of the abdomen were obtained. COMPARISON: 03/31/2019 FINDINGS: Bowel gas obscures visualization of the pancreas. The visualized portions of the pancreas a re unremarkable. The liver demonstrates coarsened echotexture. There is nodularity of the liver surfa ce. No ascites is identified. Normal hepatopetal flow in the main portal vein. The gallbladder is emlonie gically absent. The normal common bile duct measures 3 mm. IMPRESSION: 1. Cirrhosis. Reviewed, dictated and finalized at location F. M GENERATING POWERPLANT MECHANIC IMPRESSION: 1. Cirrhosis.
== END 2021-06-28 07:47 | disposition home or self-care (01) ==
LOC: CHSIMG 07:49
PROVIDERS: PCP Internal Medicine
DX: K74.60 Unspecified cirrhosis of liver (principal); K74.3 Primary biliary cirrhosis; R19.8 Other specified symptoms and signs involving the digestive system and abdomen
CPT/HCPCS: 76705

== ENCOUNTER 2021-09-05 08:16 | Outpatient (CLI) | payer MEDICARE, SELFPAY ==
[2021-09-05 08:33] LABS: Hematocrit 38.8 % (35.0-42.0); Hemoglobin 13.1 g/dL (11.7-13.8); Mean Corpuscular HGB Conc 33.8 g/dL (32.0-36.0); Mean Corpuscular Hemoglobin 30.1 pg (27.0-31.0); Mean Corpuscular Volume 89.2 fL (78.0-102.0); Mean Platelet Volume 9.5 fl (9.2-11.8); Platelet Count Result 151 K/mm3 (150-420); Red Blood Count 4.35 M/mm3 (4.20-5.40); Red Cell Distribution Width 12.6 % (11.6-14.4); White Blood Count 3.7 K/mm3 (4.8-10.8)
[2021-09-05 08:34] LABS: Add Urine Microscopic? YES; Appearance Urine Clear (Clear); Bilirubin Urine Negative (Negative); Blood Urine Negative (Negative); Color Urine Light Yellow (Yellow); Glucose Urine UA Negative (Negative); Ketones Urine Negative (Negative); Leukocyte Esterase Ur 2+ (Negative); Nitrate Urine Negative (Negative); Protein Urine Negative (Negative); Urobilinogen Urine 0.2 mg/dL (0.2-1.0); pH Urine 6.5 (5.0-8.0)
[2021-09-05 08:43] LABS: RBC Urine None seen /hpf (0-2)
[2021-09-05 08:44] LABS: Bacteria Urine Trace /hpf; Squamous Epithelial Cell Urine Few /hpf (Few)
[2021-09-05 08:46] LABS: Creatinine Urine 65.44 mg/dL (40-278); MALB Creatinine Ratio 19.8 mg/g (0-30); Microalbumin Urine Random < 13.0 mg/L
[2021-09-05 08:50] LABS: Hemoglobin A1C 6.5 % (<5.7)
[2021-09-05 08:53] LABS: Alanine Aminotransferase 28 U/L (14-59); Albumin Level 3.7 g/dL (3.4-5.0); Alkaline Phosphatase 142 U/L (46-116); Anion Gap 6 mmol/L (8-16); Aspartate Amino Transferase 33 U/L (15-37); Bilirubin,Total 0.9 mg/dL (0.00-1.00); Blood Urea Nitrogen 14 mg/dL (7-18); Calcium 9.2 mg/dL (8.5-10.1); Carbon Dioxide 28 mmol/L (21-32); Chloride 102 mmol/L (98-108); Cholesterol 189 mg/dL (0-200); Creatine Kinase 91 U/L (26-192); Estimated Glomerular Filt Rate > 60; Glucose 146 mg/dL (70-99); HDL Direct 63 mg/dL (40-60); LDL Cholesterol Calculated 104 mg/dL (<130); Osmolality Calculated 285 mOsm/kg (285-295); Potassium 4.1 mmol/L (3.5-5.1); Sodium 136 mmol/L (136-145); Total Protein 7.1 g/dL (6.4-8.2); Triglycerides 112 mg/dL (0-150)
[2021-09-05 09:03] LABS: Band Neutrophils Percent 0 % (0-6); Neutrophils Absolute Manual 1.59 K/mm3 (1.7-7.2); Neutrophils Percent Manual 43 % (46-73); Total Cells Counted 100
[2021-09-05 09:04] LABS: Eosinophils Absolute Manual 0.07 K/mm3 (0.02-0.5); Eosinophils Percent Manual 2 % (1-6); Lymphocytes Absolute Manual 1.62 K/mm3 (1.1-4.5); Lymphocytes Percent Manual 44 % (18-44); Monocytes Percent Manual 11 % (3-9); Platelet Estimate Adequate (Adequate)
[2021-09-07 14:27] LABS: Vitamin D 25 Hydroxy 23 ng/mL (30-100)
== END 2021-09-05 08:17 | disposition home or self-care (01) ==
LOC: CHSLAB 08:17
PROVIDERS: PCP Internal Medicine; Visit Provider Internal Medicine
DX: E78.2 Mixed hyperlipidemia (principal); E11.9 Type 2 diabetes mellitus without complications; I10 Essential (primary) hypertension; M81.0 Age-related osteoporosis without current pathological fracture
CPT/HCPCS: 36415; 80053; 80061; 81001; 82043; 82306; 82550; 83036; 85025

== ENCOUNTER 2021-09-14 08:27 | Outpatient (CLI) | payer MEDICARE, SELFPAY ==
--- NOTE | ~2021-09-14 | CT_ITS ---
EXAMINATION: CT abdomen pelvis w con DATE: 09/14/2021 08:54 INDICATION: Abdominal pain, discomfort, belching, bloating for one year, worse over the past 3 weeks. Hematuria. Recent urinary tract infection. TECHNIQUE: Computed tomography (CT) of the abdomen and pelvis was performed with 100 CC Omnipaque 350 intravenous contrast. Automated exposure control and iterative reconstruction technique were employe d. Exam dose: 513.01 mGy-cm total exam DLP. COMPARISON: 06/28/2021 right upper quadrant abdominal ultrasound 09/24/2017 CT abdomen pelvis FINDINGS: There is minimal posterior medial right lower lobe pulmonary infiltrate. Normal heart size. No pericardial or pleural effusion. There is surface nodularity of the liver consistent with cirrhosis. No hepatic space-occupying mass l esion is evident. Status post cholecystectomy. No bile duct or pancreatic duct dilatation. No pancreatic mass lesion or perisplenic calcified granulomas consistent with old granulomatous disease. The spleen measures up t o 10 cm vertical dimension, within normal range. Normal morphology of the adrenal glands. No renal mass lesion or urinary tract calculus or hydroureteronephrosis. The urinary bladder, uterus and adnexal areas are unremarkable other than 1.4 cm left ovarian cyst. Normal appendix. Mild colonic diverticulosis; no CT evidence of diverticulitis. No bowel obstruction, bowel wall thickening, pneumatosis or intraperitoneal free air. There is atherosclerotic calcification of the abdominal aorta and iliac arteries but no aneurysm. No intraperitoneal or retroperitoneal or pelvic mass lesion or adenopathy or ascites. Degenerative changes of the lower thoracic spine and the lumbar spine including prominent degenerativ e disease at L4-5 and L5-S1. Prominent bilateral hip osteoarthritis. No suspicious osteolytic or osteoblastic lesions. IMPRESSION: Cirrhosis Status post cholecystectomy Colonic diverticulosis Normal appendix Reviewed, dictated and finalized at Location A. Reviewed, dictated and finalized at location B.
== END 2021-09-14 08:28 | disposition home or self-care (01) ==
LOC: CHSIMG 08:28
PROVIDERS: PCP Internal Medicine; Visit Provider Internal Medicine
DX: K74.60 Unspecified cirrhosis of liver (principal); K57.90 Diverticulosis of intestine, part unspecified, without perforation or abscess without bleeding; R10.9 Unspecified abdominal pain; R30.0 Dysuria
CPT/HCPCS: 74177; Q9967

== ENCOUNTER 2021-12-15 09:15 | Outpatient (CLI) | payer MEDICARE, SELFPAY ==
--- NOTE | 2021-12-15 09:20 | PC.NURSE ---
Pt to OP infusion center amb. A&Ox3. Has no questions or concerns. Plan of care explained. Oriented to room. Reminded to voice needs.
[2021-12-15] MEDS: ZOLEDRONIC ACID 5 MG/100 ML 100 ML 400 MG IVPB (09:34)
--- NOTE | 2021-12-15 09:50 | PC.NURSE ---
Reclast infused as ordered. Pt tolerated well. Has no complaints. Discharged to home amb per self.
== END 2021-12-15 09:16 | disposition home or self-care (01) ==
LOC: CHSTREATRM 09:17
PROVIDERS: PCP Internal Medicine; Visit Provider Internal Medicine
DX: M81.0 Age-related osteoporosis without current pathological fracture (principal)
CPT/HCPCS: 96365; 96374; J3489

== ENCOUNTER 2022-02-13 07:26 | Outpatient (CLI) | payer MEDICARE, SELFPAY ==
--- NOTE | ~2022-02-13 | MM_ITS ---
EXAMINATION: MM screening lance BI w kami HISTORY: Screening TECHNIQUE: Craniocaudal and mediolateral oblique 3-D tomosynthesis images were obtained and synthetic 2-D images were generated. CAD analysis was submitted and interpreted. COMPARISON: No prior mammogram is available for comparison at this institution. BREAST PARENCHYMAL COMPOSITION: There are scattered areas of fibroglandular density. FINDINGS: There is no evidence of suspicious mass, calcification, or architectural distortion to sugg est malignancy in either breast. There has been no suspicious interval change. IMPRESSION: 1. No mammographic evidence of malignancy. 2. Recommend routine screening mammography in one year. BI-RADS Category 1: Negative Reviewed, dictated and finalized at location A.
== END 2022-02-13 07:27 | disposition home or self-care (01) ==
LOC: CHSIMG 07:27
PROVIDERS: PCP Internal Medicine; Visit Provider Internal Medicine
DX: Z12.31 Encounter for screening mammogram for malignant neoplasm of breast (principal)
CPT/HCPCS: 77063; 77067

== ENCOUNTER 2022-03-07 08:08 | Outpatient (CLI) | payer MEDICARE, SELFPAY ==
[2022-03-07 08:23] LABS: Appearance Urine Clear (Clear); Bilirubin Urine Negative (Negative); Blood Urine Negative (Negative); Glucose Urine UA Negative (Negative); Hematocrit 38.8 % (35.0-42.0); Hemoglobin 13.1 g/dL (11.7-13.8); Ketones Urine Negative (Negative); Leukocyte Esterase Ur 2+ LEU/UL (Negative); Mean Corpuscular HGB Conc 33.8 g/dL (32.0-36.0); Mean Corpuscular Hemoglobin 29.6 pg (27.0-31.0); Mean Corpuscular Volume 87.6 fL (78.0-102.0); Mean Platelet Volume 9.2 fl (9.2-11.8); Nitrate Urine Negative (Negative); Platelet Count Result 149 K/mm3 (150-420); Protein Urine Negative (Negative); Red Blood Count 4.43 M/mm3 (4.20-5.40); Red Cell Distribution Width 12.6 % (11.6-14.4); Specific Grav Ur 1.015 (1.010-1.020); White Blood Count 3.2 K/mm3 (4.8-10.8)
[2022-03-07 08:33] LABS: Add Urine Microscopic? YES; Bacteria Urine Trace /hpf; Color Urine Light Yellow (Yellow); RBC Urine None seen /hpf (0-2); Squamous Epithelial Cell Urine Few /hpf (Few)
[2022-03-07 08:37] LABS: Hemoglobin A1C 6.7 % (<5.7)
[2022-03-07 08:48] LABS: Alanine Aminotransferase 35 U/L (14-59); Albumin Level 3.7 g/dL (3.4-5.0); Alkaline Phosphatase 137 U/L (46-116); Anion Gap 6 mmol/L (8-16); Aspartate Amino Transferase 38 U/L (15-37); Bilirubin,Total 0.7 mg/dL (0.00-1.00); Blood Urea Nitrogen 16 mg/dL (7-18); Calcium 9.2 mg/dL (8.5-10.1); Carbon Dioxide 31 mmol/L (21-32); Chloride 105 mmol/L (98-108); Cholesterol 191 mg/dL (0-200); Estimated Glomerular Filt Rate > 60; Glucose 142 mg/dL (70-99); HDL Direct 66 mg/dL (40-60); LDL Cholesterol Calculated 109 mg/dL (<130); Osmolality Calculated 297 mOsm/kg (285-295); Potassium 4.6 mmol/L (3.5-5.1); Sodium 142 mmol/L (136-145); Triglycerides 82 mg/dL (0-150)
[2022-03-07 09:08] LABS: Band Neutrophils Percent 1 % (0-6); Eosinophils Absolute Manual 0.06 K/mm3 (0.02-0.5); Eosinophils Percent Manual 2 % (1-6); Lymphocytes Absolute Manual 1.53 K/mm3 (1.1-4.5); Lymphocytes Percent Manual 48 % (18-44); Monocytes Absolute Manual 0.35 K/mm3 (0.1-0.90); Monocytes Percent Manual 11 % (3-9); Neutrophils Absolute Manual 1.24 K/mm3 (1.7-7.2); Neutrophils Percent Manual 38 % (46-73); Platelet Estimate Adequate (Adequate); Schistocytes None Seen (NORMAL); Total Cells Counted 100
[2022-03-12 19:16] LABS: Vitamin D 25 Hydroxy 26 ng/mL (30-100)
== END 2022-03-07 08:09 | disposition home or self-care (01) ==
LOC: CHSLAB 08:11
PROVIDERS: PCP Internal Medicine; Visit Provider Internal Medicine
DX: E78.2 Mixed hyperlipidemia (principal); E11.9 Type 2 diabetes mellitus without complications; K74.60 Unspecified cirrhosis of liver; R30.0 Dysuria; M81.0 Age-related osteoporosis without current pathological fracture
CPT/HCPCS: 36415; 80053; 80061; 81001; 82306; 83036; 85025; 87077; 87086; 87088

== ENCOUNTER 2022-04-02 14:22 | Emergency (ER) | payer MEDICARE, SELFPAY ==
--- NOTE | 2022-04-02 14:25 | ED.EXTPRO ---
HPI - Extremity Problem General Chief complaint: Extremity Injury, Upper Stated complaint: left wrist cast tight, fingers turning blue Time Seen by Provider: 04/02/22 14:25 Source: patient and RN notes reviewed Mode of arrival: ambulatory Limitations: no limitations History of Present Illness HPI Narrative: Patient sustained a left wrist fracture 4 days ago. She went to another facility and had OCL placed. She complains that since last evening her fingers have felt more tingly swollen and look like they are turning blue. she says she has some mild nagging pain in her fingers. Still has pain in her wrist. MD Complaint: extremity pain and extremity swelling Onset (ago): day(s) (1) Pain Consistency: constant Location: left and upper extremity Quality: aching, dull and constant Radiation: none Relieving factors: nothing Exacerbating factors: nothing Associated symptoms: denies other symptoms Context: immobilization Related Data Home Medications Medication Instructions Recorded Confirmed alendronate 70 mg tablet 70 mg PO WEEKLY 12/07/20 04/02/22 atorvastatin 10 mg tablet 10 mg PO DAILY 12/07/20 04/02/22 calcitriol 0.5 mcg capsule 0.5 mcg PO DAILY 12/07/20 04/02/22 metformin 500 mg tablet 500 mg PO BID 12/07/20 04/02/22 nadolol 20 mg tablet 20 mg PO DAILY 12/07/20 04/02/22 pantoprazole 20 mg tablet,delayed 20 mg PO QAM 12/07/20 04/02/22 release Allergies Allergy/AdvReac Type Severity Reaction Status Date / Time Sulfa (Sulfonamide AdvReac Hives Verified 04/02/22 14:44 Antibiotics) Review of Systems Review of Systems: All systems reviewed & are unremarkable except as noted in HPI and below PMFSH Past Medical History Medical History (Updated 04/02/22 @ 14:35 by Kevin Reyes MD) Dyslipidemia GERD (gastroesophageal reflux disease) Hypertension Liver disease Type 2 diabetes mellitus Surgical History Surgical History History of cholecystectomy History of tonsillectomy Exam Const: General: healthy appearing, no acute distress and alert Nutritional Appearance: well nourished Orientation/consciousness: patient oriented x3 Limitations: no limitations HENMT: Head: normal to inspection Ears: external ears normal Eyes: Conjunctivae: conjunctivae normal Pupils: Equal, round and reactive pupils present EOM: EOMs intact bilaterally Neck: Neck: normal visual inspection Resp: Effort & Inspection: normal respiratory effort Auscultation: clear to auscultation bilaterally Cardio: Rate: regular rate Rhythm: regular rhythm GI: GI Palp: Yes Soft to palpation and No Tenderness to palpation present (GI) Auscultation: normal bowel sounds Back/Spine/Pelvis: Cervical Spine: cervical ROM normal Thoracic/Lumbar Spine: thoraco-lumbar ROM normal Skin: General skin exam: normal color Rashes: no rashes Neuro: General: patient oriented x3, moves all extremities, no focal motor deficits and CN's II-XI intact bilaterally Speech: normal speech Gait exam (Neuro): Normal gait present Extrem: General: normal exam except as noted Left upper extremity: wrist ( OCL splint in place see comments below) Other: OCL splint on the left forearm. The fingers show some evidence of increased ecchymosis which could be waterfall effect from broken blood vessels from recent fracture. Fingers are swollen. Decreased sensation light touch to the left thumb. The Felix wraps were taken down patient has immediate improvement in her feeling. She says pain is improved. There is no evidence of compartment syndrome. The Felix wraps are we wrapped over the OCL and patient feels much better. She is given instructions on how to rewrap as necessary. Psych: Mental Status: mental status grossly normal Affect: normal affect Attitude: cooperative Course Vital Signs Vital signs: Vital Signs Temperature 36.1 C L 04/02/22 14:36 Pulse Rate 72 04/02/22 14:36 Respiratory Rate 16
[2022-04-02 14:36] VITALS: BP 118/69; PULSE 72; RESP 16; TEMP 36.1; O2SAT 97
[2022-04-02 14:55] VITALS: BP 118/69; PULSE 72; RESP 16; TEMP 36.1; O2SAT 97
== END 2022-04-02 14:56 | disposition home or self-care (01) ==
PROVIDERS: Emergency Provider Emergency Medicine; PCP Internal Medicine
DX: M25.532 Pain in left wrist (principal)
CPT/HCPCS: 99281

== ENCOUNTER 2022-09-13 07:35 | Outpatient (CLI) | payer MEDICARE, SELFPAY ==
[2022-09-13 07:50] LABS: Hematocrit 38.9 % (35.0-42.0); Hemoglobin 13.2 g/dL (11.7-13.8); Mean Corpuscular HGB Conc 33.9 g/dL (32.0-36.0); Mean Corpuscular Hemoglobin 30.2 pg (27.0-31.0); Mean Platelet Volume 9.7 fl (9.2-11.8); Platelet Count Result 152 K/mm3 (150-420); Red Blood Count 4.37 M/mm3 (4.20-5.40); Red Cell Distribution Width 12.7 % (11.6-14.4); White Blood Count 3.5 K/mm3 (4.8-10.8)
[2022-09-13 07:52] LABS: Appearance Urine Clear (Clear); Bilirubin Urine Negative (Negative); Blood Urine Negative (Negative); Color Urine Light Yellow (Yellow); Glucose Urine UA Negative (Negative); Ketones Urine Negative (Negative); Leukocyte Esterase Ur 1+ (Negative); Nitrate Urine Negative (Negative); Protein Urine Negative (Negative)
[2022-09-13 07:54] LABS: Add Urine Microscopic? YES; Bacteria Urine Trace /hpf; RBC Urine None seen /hpf (0-2); Squamous Epithelial Cell Urine Moderate /hpf (Few); WBC Urine 0-3 /hpf (0-3)
[2022-09-13 08:01] LABS: Band Neutrophils Percent 2 % (0-6); Eosinophils Absolute Manual 0.07 K/mm3 (0.02-0.5); Eosinophils Percent Manual 2 % (1-6); Lymphocytes Absolute Manual 1.57 K/mm3 (1.1-4.5); Lymphocytes Percent Manual 45 % (18-44); Monocytes Absolute Manual 0.24 K/mm3 (0.1-0.90); Monocytes Percent Manual 7 % (3-9); Neutrophils Absolute Manual 1.61 K/mm3 (1.7-7.2); Neutrophils Percent Manual 44 % (46-73); Platelet Estimate Adequate (Adequate); Total Cells Counted 100
[2022-09-13 08:15] LABS: Creatinine Urine 65.84 mg/dL (40-278); MALB Creatinine Ratio 19.7 mg/g (0-30); Microalbumin Urine Random < 13.0 mg/L
[2022-09-13 08:18] LABS: Hemoglobin A1C 6.7 % (<5.7)
[2022-09-13 08:48] LABS: Alanine Aminotransferase 33 U/L (14-59); Albumin Level 3.6 g/dL (3.4-5.0); Alkaline Phosphatase 145 U/L (46-116); Anion Gap 9 mmol/L (8-16); Aspartate Amino Transferase 34 U/L (15-37); Blood Urea Nitrogen 15 mg/dL (7-18); CRP < 0.5 mg/dL (0.0-0.9); Calcium 9.4 mg/dL (8.5-10.1); Carbon Dioxide 27 mmol/L (21-32); Chloride 104 mmol/L (98-108); Cholesterol 187 mg/dL (0-200); Estimated Glomerular Filt Rate > 60; Free T3 3.11 pg/mL (2.18-3.98); Free T4 Free Thyroxine 1.39 ng/dL (0.76-1.46); Glucose 152 mg/dL (70-99); HDL Direct 73 mg/dL (40-60); LDL Cholesterol Calculated 94 mg/dL (<130); Osmolality Calculated 293 mOsm/kg (285-295); Potassium 4.5 mmol/L (3.5-5.1); Sodium 140 mmol/L (136-145); Thyroid Stimulating Hormone 2.51 uIU/mL (0.36-3.74); Triglycerides 101 mg/dL (0-150)
[2022-09-13 08:53] LABS: Erythrocyte Sedimentation Rate 14 mm/hr (0-20)
[2022-09-22 17:32] LABS: Alpha Fetoprotein Tumor Marker 2.7 ng/mL (<6.1)
== END 2022-09-13 07:36 | disposition home or self-care (01) ==
LOC: CHSLAB 07:39
PROVIDERS: PCP Internal Medicine; Visit Provider Internal Medicine
DX: E78.2 Mixed hyperlipidemia (principal); E11.9 Type 2 diabetes mellitus without complications; M81.0 Age-related osteoporosis without current pathological fracture; R53.82 Chronic fatigue, unspecified; K74.60 Unspecified cirrhosis of liver
CPT/HCPCS: 36415; 80053; 80061; 81001; 82043; 82105; 83036; 84439; 84443; 84481; 85025; 85652; 86140

== ENCOUNTER 2023-02-15 07:58 | Outpatient (CLI) | payer MEDICARE, SELFPAY ==
--- NOTE | ~2023-02-15 | MM_ITS ---
EXAMINATION: MM screening lance BI w kami HISTORY: Screening mammogram TECHNIQUE: Craniocaudal and mediolateral oblique 3-D tomosynthesis images were obtained and synthetic 2-D images were generated. CAD analysis was submitted and interpreted. COMPARISON: 02/13/2022, 02/07/2021, 02/06/2020 BREAST PARENCHYMAL COMPOSITION:There are scattered areas of fibroglandular density. FINDINGS: No suspicious mass, calcification, or architectural distortion are identified in either ayush ast to suggest malignancy. There has been no suspicious interval change. IMPRESSION: No mammographic evidence of malignancy. Recommend routine screening mammography in one year. BI-RADS Category 1: Negative Reviewed, dictated and finalized at location .
[2023-02-15] MEDS: ZOLEDRONIC ACID 5 MG/100 ML 100 ML 400 MG IVPB (08:40)
[2023-02-15 08:41] VITALS: BMI 27.6
[2023-02-15 08:42] VITALS: BP 109/60; PULSE 68; RESP 14; TEMP 36.6; O2SAT 98
--- NOTE | 2023-02-15 08:55 | PC.NURSE ---
Patient here for yearly IV Reclast. Education given. No concerns voiced. IV Reclast administered. SEE MAR. Tolerated well. Safe exit of hospital per self/ambulatory.
== END 2023-02-15 07:59 | disposition home or self-care (01) ==
LOC: CHSTREATRM 08:02
PROVIDERS: PCP Internal Medicine; Visit Provider Internal Medicine
DX: M81.0 Age-related osteoporosis without current pathological fracture (principal); Z12.31 Encounter for screening mammogram for malignant neoplasm of breast
CPT/HCPCS: 77063; 77067; 96374; J3489

== ENCOUNTER 2023-03-09 07:46 | Outpatient (CLI) | payer MEDICARE, SELFPAY ==
[2023-03-09 07:58] LABS: Basophils Absolute Auto 0.03 K/mm3 (0.00-0.10); Basophils Percent Auto 0.7 % (0.0-1.0); Eosinophils Absolute Auto 0.08 K/mm3 (0.02-0.50); Eosinophils Percent Auto 1.9 % (1.0-6.0); Hematocrit 42.3 % (35.0-42.0); Hemoglobin 14.1 g/dL (11.7-13.8); Immature Granulocyte Absolute 0.01 K/mm3 (0.00-0.00); Immature Granulocyte Percent A 0.2 % (0.0-0.0); Lymphocytes Absolute Auto 1.75 K/mm3 (1.10-4.50); Lymphocytes Percent Auto 41.5 % (18.0-42.0); Mean Corpuscular HGB Conc 33.3 g/dL (32.0-36.0); Mean Corpuscular Hemoglobin 29.4 pg (27.0-31.0); Mean Corpuscular Volume 88.3 fL (78.0-102.0); Mean Platelet Volume 9.6 fl (9.2-11.8); Monocytes Absolute Auto 0.53 K/mm3 (0.10-0.90); Monocytes Percent Auto 12.6 % (2.0-11.0); Neutrophils Absolute Auto 1.8 K/mm3 (1.7-7.2); Neutrophils Percent Auto 43.1 % (50.0-70.0); Platelet Count Result 160 K/mm3 (150-420); Red Blood Count 4.79 M/mm3 (4.20-5.40); Red Cell Distribution Width 12.3 % (11.6-14.4); White Blood Count 4.2 K/mm3 (4.8-10.8)
[2023-03-09 07:59] LABS: Appearance Urine Clear (Clear); Bilirubin Urine Negative (Negative); Blood Urine Negative (Negative); Color Urine Light Yellow (Yellow); Glucose Urine UA Negative (Negative); Ketones Urine Negative (Negative); Leukocyte Esterase Ur 1+ (Negative); Nitrate Urine Negative (Negative); Protein Urine Negative (Negative); Specific Grav Ur 1.015 (1.010-1.020); Urobilinogen Urine 0.2 mg/dL (0.2-1.0)
[2023-03-09 08:13] LABS: Add Urine Microscopic? YES; Bacteria Urine Trace /hpf; RBC Urine None seen /hpf (0-2); Transitional Epi Cells Urine Few /hpf; WBC Urine 0-5 /hpf (0-3)
[2023-03-09 08:20] LABS: Hemoglobin A1C 6.8 % (<5.7)
[2023-03-09 08:52] LABS: Alanine Aminotransferase 32 U/L (14-59); Albumin Level 3.6 g/dL (3.4-5.0); Alkaline Phosphatase 166 U/L (46-116); Anion Gap 8 mmol/L (8-16); Aspartate Amino Transferase 29 U/L (15-37); Blood Urea Nitrogen 17 mg/dL (7-18); Calcium 9.8 mg/dL (8.5-10.1); Carbon Dioxide 31 mmol/L (21-32); Chloride 102 mmol/L (98-108); Cholesterol 212 mg/dL (0-200); Creatine Kinase 45 U/L (26-192); Estimated Glomerular Filt Rate > 60; Glucose 139 mg/dL (70-99); HDL Direct 61 mg/dL (40-60); LDL Cholesterol Calculated 127 mg/dL (<130); Osmolality Calculated 295 mOsm/kg (285-295); Potassium 4.6 mmol/L (3.5-5.1); Sodium 141 mmol/L (136-145); Total Protein 7.2 g/dL (6.4-8.2); Triglycerides 122 mg/dL (0-150)
== END 2023-03-09 07:47 | disposition home or self-care (01) ==
LOC: CHSLAB 07:47
PROVIDERS: PCP Internal Medicine; Visit Provider Internal Medicine
DX: E78.2 Mixed hyperlipidemia (principal); I10 Essential (primary) hypertension; K74.60 Unspecified cirrhosis of liver; E11.9 Type 2 diabetes mellitus without complications
CPT/HCPCS: 36415; 80053; 80061; 81001; 82550; 83036; 85025

== ENCOUNTER 2023-03-26 08:50 | Outpatient (CLI) | payer MEDICARE, SELFPAY | END 2023-03-26 08:51 | disposition home or self-care (01) | LOC: CHSAUDIO 08:51 | PROVIDERS: PCP Internal Medicine; Visit Provider Internal Medicine | DX: H90.3 Sensorineural hearing loss, bilateral (principal) | CPT/HCPCS: 92557; 92567 ==

== ENCOUNTER 2023-05-10 08:39 | Outpatient (CLI) | payer MEDICARE, SELFPAY ==
--- NOTE | ~2023-05-10 | DEXA_ITS ---
Bone Density Report Name: MED CRANDALL Age: 73 Sex: Female Ethnicity: White Date of : 1950 Indication: postmenopausal; screening for osteoporosis; height loss; prior fracture; Referring Provider: Jacob Castellano Study: Bone densitometry was performed. Exam Date: May 10, 2023 Accession number: [id number] Bone Density: Region BMD T-score Z-score Classification AP Spine(L1-L4) 1.115 0.6 2.8 Normal Femoral Neck (Left) 0.782 -0.6 1.3 Normal Total Hip (Left) 0.837 -0.9 0.7 Normal Femoral Neck (Right) 0.706 -1.3 0.6 Osteopenia Total Hip (Right) 0.777 -1.4 0.2 Osteopenia Femoral Neck Mean 0.744 -0.9 0.9 Normal Total Hip Mean 0.807 -1.1 0.5 Osteopenia World Health Organization criteria for BMD impression classify patients as: Normal (T-score at or above -1.0), Osteopenia (T-score between -1.0 and -2.5), or Osteoporosis (T-score at or below -2.5). 10-year Fracture Risk: FRAX not reported because: Treated for osteoporosis Clinical Information Provided by Patient: Has had a low trauma fracture Is being treated for osteoporosis Has used the following medications: Reclast (i.e. zoledronate), Vitamin D, Calcium, caloitrol Patient maximum height was 67 Menopause Age: 60 Drinks caffeinated beverages Onset of menses at age 14 Number of children 3 Impression: The patient has low bone mass, based on the Right Total Hip T-score. The patient has risk factors, including: previous fracture. Discussion: It is important to ask patients whether they are taking their medications and to encourage continued and appropriate compliance with their osteoporosis therapies to reduce fracture risk. It is also important to review their risk factors and encourage appropriate calcium and vitamin D intakes, exercise, fall prevention and other lifestyle measures. Follow-Up: Consider a repeat BMD and Vertebral Fracture Assessment (VFA) exam in 2 years or sooner if medically necessary, to reassess this patient's status. Reported by: Dr. Juanito Giraldo on 05/10/2023 9:01:00 AM. Reviewed, dictated and finalized at location AAnn-Marie MARTINEZ
== END 2023-05-10 08:40 | disposition home or self-care (01) ==
LOC: CHSIMG 08:40
PROVIDERS: PCP Internal Medicine; Visit Provider Internal Medicine
DX: M81.0 Age-related osteoporosis without current pathological fracture (principal); M85.89 Other specified disorders of bone density and structure, multiple sites
CPT/HCPCS: 77080

== ENCOUNTER 2023-07-04 08:00 | Outpatient (CLI) | payer MEDICARE, SELFPAY ==
[2023-07-04 09:09] LABS: Anion Gap 10 mmol/L (8-16); Blood Urea Nitrogen 18 mg/dL (7-18); Calcium 9.2 mg/dL (8.5-10.1); Carbon Dioxide 27 mmol/L (21-32); Chloride 101 mmol/L (98-108); Estimated Glomerular Filt Rate > 60; Glucose 141 mg/dL (70-99); Osmolality Calculated 289 mOsm/kg (285-295); Potassium 4.4 mmol/L (3.5-5.1); Sodium 138 mmol/L (136-145)
== END 2023-07-04 08:01 | disposition home or self-care (01) ==
LOC: CHSLAB 08:03
PROVIDERS: PCP Internal Medicine; Visit Provider Internal Medicine
DX: E11.9 Type 2 diabetes mellitus without complications (principal)
CPT/HCPCS: 36415; 80048; 83036

== ENCOUNTER 2023-07-11 07:28 | Outpatient (CLI) | payer MEDICARE, SELFPAY ==
--- NOTE | ~2023-07-11 | US_ITS ---
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 TECHNIQUE: Multiple grayscale and Doppler ultrasound images of the abdomen were obtained. COMPARISON: CT abdomen and pelvis 09/14/2021 FINDINGS: The liver demonstrates coarsened echotexture and surface nodularity, consistent with cirrho sis. There is normal flow in main portal vein, left and right portal veins, right, middle, and left h epatic veins, and proper hepatic artery. IMPRESSION: 1. Cirrhosis of the liver. Reviewed, dictated and finalized at location E. ELLER MECHANIC IMPRESSION: 1. Cirrhosis of the liver.
[2023-07-11 07:50] LABS: Hematocrit 39.5 % (35.0-42.0); Hemoglobin 13.4 g/dL (11.7-13.8); Mean Corpuscular HGB Conc 33.9 g/dL (32.0-36.0); Mean Corpuscular Hemoglobin 29.1 pg (27.0-31.0); Mean Corpuscular Volume 85.7 fL (78.0-102.0); Mean Platelet Volume 9.5 fl (9.2-11.8); Platelet Count Result 143 K/mm3 (150-420); Red Blood Count 4.61 M/mm3 (4.20-5.40); Red Cell Distribution Width 12.9 % (11.6-14.4); White Blood Count 3.3 K/mm3 (4.8-10.8)
[2023-07-11 08:03] LABS: Prothrombin Time 10.8 Seconds (9.50-12.10)
[2023-07-11 08:07] LABS: Band Neutrophils Percent 0 % (0-6); Eosinophils Absolute Manual 0.23 K/mm3 (0.02-0.5); Eosinophils Percent Manual 7 % (1-6); Lymphocytes Absolute Manual 1.32 K/mm3 (1.1-4.5); Lymphocytes Percent Manual 40 % (18-44); Monocytes Absolute Manual 0.42 K/mm3 (0.1-0.90); Monocytes Percent Manual 13 % (3-9); Neutrophils Absolute Manual 1.32 K/mm3 (1.7-7.2); Neutrophils Percent Manual 40 % (46-73); Platelet Estimate Adequate (Adequate); Total Cells Counted 100
[2023-07-11 08:27] LABS: Alanine Aminotransferase 33 U/L (14-59); Albumin Level 3.7 g/dL (3.4-5.0); Alkaline Phosphatase 120 U/L (46-116); Anion Gap 8 mmol/L (8-16); Aspartate Amino Transferase 38 U/L (15-37); Blood Urea Nitrogen 18 mg/dL (7-18); Carbon Dioxide 28 mmol/L (21-32); Chloride 102 mmol/L (98-108); Estimated Glomerular Filt Rate > 60; Glucose 156 mg/dL (70-99); Osmolality Calculated 290 mOsm/kg (285-295); Potassium 4.2 mmol/L (3.5-5.1); Sodium 138 mmol/L (136-145); Total Protein 6.8 g/dL (6.4-8.2)
[2023-07-17 15:37] LABS: Alpha Fetoprotein Tumor Marker 2.7 ng/mL (<6.1)
== END 2023-07-11 07:29 | disposition home or self-care (01) ==
LOC: CHSIMG 07:30
PROVIDERS: PCP Internal Medicine; Visit Provider Internal Medicine Gastroenterology
DX: K74.3 Primary biliary cirrhosis (principal); K74.69 Other cirrhosis of liver
CPT/HCPCS: 36415; 80053; 82105; 85025; 85610; 93979

== ENCOUNTER 2023-10-12 07:38 | Outpatient (CLI) | payer MEDICARE, SELFPAY ==
[2023-10-12 08:00] LABS: Hematocrit 40.8 % (35.0-42.0); Hemoglobin 13.7 g/dL (11.7-13.8); Mean Corpuscular HGB Conc 33.6 g/dL (32-36); Mean Corpuscular Hemoglobin 29.5 pg (27.0-31.0); Mean Corpuscular Volume 87.7 fL (78.0-102.0); Mean Platelet Volume 9.6 fl (9.2-11.8); Platelet Count Result 152 K/mm3 (150-420); Red Blood Count 4.65 M/mm3 (4.20-5.40); Red Cell Distribution Width 12.4 % (11.6-14.4); White Blood Count 3.5 K/mm3 (4.8-10.8)
[2023-10-12 08:01] LABS: Appearance Urine Clear (Clear); Bilirubin Urine Negative (Negative); Blood Urine Negative (Negative); Color Urine Light Yellow (Yellow); Glucose Urine UA Negative (Negative); Ketones Urine Negative (Negative); Leukocyte Esterase Ur 1+ (Negative); Nitrate Urine Positive (Negative); Protein Urine Negative (Negative); Specific Grav Ur 1.015 (1.010-1.020); Urobilinogen Urine 0.2 mg/dL (0.2-1.0)
[2023-10-12 08:12] LABS: Creatinine Urine 75.65 mg/dL (40-278); MALB Creatinine Ratio 17.1 mg/g (0-30); Microalbumin Urine Random < 13.0 mg/L
[2023-10-12 08:15] LABS: Add Urine Microscopic? YES; RBC Urine 0-2 /hpf (0-2); Squamous Epithelial Cell Urine Many /hpf (Few); WBC Clumps Urine Present /hpf; WBC Urine 31-50 /hpf (0-3)
[2023-10-12 08:16] LABS: Bacteria Urine 4+ /hpf; Mucus Urine Moderate /lpf; White Blood Cell Casts Urine Present /lpf
[2023-10-12 08:18] LABS: Hemoglobin A1C 5.8 % (<5.7)
[2023-10-12 08:48] LABS: Alanine Aminotransferase 39 U/L (14-59); Albumin Level 3.8 g/dL (3.4-5.0); Alkaline Phosphatase 125 U/L (46-116); Anion Gap 8 mmol/L (4-12); Aspartate Amino Transferase 47 U/L (15-37); Bilirubin,Total 0.9 mg/dL (0.00-1.00); Blood Urea Nitrogen 18 mg/dL (7-18); Calcium 9.4 mg/dL (8.5-10.1); Carbon Dioxide 30 mmol/L (21-32); Chloride 102 mmol/L (98-108); Cholesterol 204 mg/dL (0-200); Creatine Kinase 88 U/L (26-192); Estimated Glomerular Filt Rate > 60; Free T3 2.69 pg/mL (2.18-3.98); Free T4 Free Thyroxine 1.21 ng/dL (0.76-1.46); Glucose 98 mg/dL (70-99); HDL Direct 67 mg/dL (40-60); LDL Cholesterol Calculated 118 mg/dL (<130); Osmolality Calculated 291 mOsm/kg (285-295); Potassium 4.3 mmol/L (3.5-5.1); Sodium 140 mmol/L (136-145); Thyroid Stimulating Hormone 2.46 uIU/mL (0.36-3.74); Total Protein 7.1 g/dL (6.4-8.2); Triglycerides 94 mg/dL (0-150)
[2023-10-12 10:07] LABS: Band Neutrophils Percent 0 % (0-6); Eosinophils Absolute Manual 0.07 K/mm3 (0.02-0.50); Eosinophils Percent Manual 2 % (1-6); Lymphocytes Absolute Manual 1.71 K/mm3 (1.1-4.5); Lymphocytes Percent Manual 49 % (18-44); Monocytes Absolute Manual 0.24 K/mm3 (0.1-0.90); Monocytes Percent Manual 7 % (3-9); Neutrophils Absolute Manual 1.47 K/mm3 (1.7-7.2); Neutrophils Percent Manual 42 % (46-73); Platelet Estimate Adequate (Adequate); Total Cells Counted 100
== END 2023-10-12 07:39 | disposition home or self-care (01) ==
LOC: CHSLAB 07:42
PROVIDERS: PCP Internal Medicine; Visit Provider Internal Medicine
DX: K74.60 Unspecified cirrhosis of liver (principal); I10 Essential (primary) hypertension; E78.2 Mixed hyperlipidemia; E11.65 Type 2 diabetes mellitus with hyperglycemia; R53.82 Chronic fatigue, unspecified
CPT/HCPCS: 36415; 80053; 80061; 81001; 82043; 82105; 82550; 83036; 84439; 84443; 84481; 85025

== ENCOUNTER 2024-02-25 14:00 | Outpatient (CLI) | payer MEDICARE, SELFPAY ==
--- NOTE | ~2024-02-25 | MM_ITS ---
EXAMINATION: MM screening lance BI w kami HISTORY: Screening TECHNIQUE: Craniocaudal and mediolateral oblique 3-D tomosynthesis images were obtained and synthetic 2-D images were generated. CAD analysis was submitted and interpreted. COMPARISON: Comparison to multiple prior studies sequentially, with oldest reviewed study dated 08/2020. BREAST PARENCHYMAL COMPOSITION: Not dense: There are scattered areas of fibroglandular density. FINDINGS: There is no evidence of suspicious mass, calcification, or architectural distortion to sugg est malignancy in either breast. There has been no suspicious interval change. IMPRESSION: 1. No mammographic evidence of malignancy. 2. Recommend routine screening mammography in one year. BI-RADS Category 1: Negative Reviewed, dictated and finalized at location B.
== END 2024-02-25 14:01 | disposition home or self-care (01) ==
LOC: CHSIMG 14:01
PROVIDERS: PCP Internal Medicine; Visit Provider Internal Medicine
DX: Z12.31 Encounter for screening mammogram for malignant neoplasm of breast (principal)
CPT/HCPCS: 77063; 77067

== ENCOUNTER 2024-03-14 09:26 | Outpatient (CLI) | payer MEDICARE, SELFPAY ==
[2024-03-14 09:47] VITALS: BP 135/58; PULSE 62; RESP 14; TEMP 36.6; O2SAT 99; BMI 27.6
[2024-03-14] MEDS: ZOLEDRONIC ACID 5 MG/100 ML 100 ML 400 MG IVPB (09:55)
[2024-03-14 10:18] VITALS: BP 128/60; PULSE 62; RESP 14; O2SAT 99
--- NOTE | 2024-03-14 10:19 | PC.NURSE ---
Patient here for yearly Reclast infusion. Education given. All concerns voiced answered. Reports did well with it last year. Reclast infusion administered-SEE MAR/patient care notes. Tolerated infuison well.
== END 2024-03-14 09:27 | disposition home or self-care (01) ==
PROVIDERS: PCP Internal Medicine; Visit Provider Internal Medicine
DX: M81.0 Age-related osteoporosis without current pathological fracture (principal)
CPT/HCPCS: 96374; J3489

== ENCOUNTER 2024-04-22 07:54 | Outpatient (CLI) | payer MEDICARE, SELFPAY ==
[2024-04-22 08:17] LABS: Basophils Absolute Auto 0.04 K/mm3 (0.00-0.10); Basophils Percent Auto 0.9 % (0.0-1.0); Eosinophils Absolute Auto 0.14 K/mm3 (0.02-0.50); Hematocrit 39.1 % (35.0-42.0); Hemoglobin 13.4 g/dL (11.7-13.8); Immature Granulocyte Absolute 0.02 K/mm3 (0.00-0.00); Immature Granulocyte Percent A 0.4 % (0.0-0.0); Lymphocytes Absolute Auto 1.82 K/mm3 (1.10-4.50); Lymphocytes Percent Auto 39.5 % (18.0-42.0); Mean Corpuscular HGB Conc 34.3 g/dL (32-36); Mean Corpuscular Hemoglobin 29.3 pg (27.0-31.0); Mean Corpuscular Volume 85.6 fL (78.0-102.0); Mean Platelet Volume 9.3 fl (9.2-11.8); Monocytes Absolute Auto 0.41 K/mm3 (0.10-0.90); Monocytes Percent Auto 8.9 % (2.0-11.0); Neutrophils Absolute Auto 2.18 K/mm3 (1.70-7.20); Neutrophils Percent Auto 47.3 % (50.0-70.0); Platelet Count Result 164 K/mm3 (150-420); Red Blood Count 4.57 M/mm3 (4.20-5.40); Red Cell Distribution Width 12.5 % (11.6-14.4); White Blood Count 4.6 K/mm3 (4.8-10.8)
[2024-04-22 08:19] LABS: Add Urine Microscopic? YES; Appearance Urine Clear (Clear); Bilirubin Urine Negative (Negative); Blood Urine Negative (Negative); Color Urine Light Yellow (Yellow); Glucose Urine UA Negative (Negative); Ketones Urine Negative (Negative); Leukocyte Esterase Ur 1+ (Negative); Nitrate Urine Negative (Negative); Protein Urine Negative (Negative); Urobilinogen Urine 0.2 mg/dL (0.2-1.0)
[2024-04-22 08:30] LABS: Creatinine Urine 76.87 mg/dL (40-278); MALB Creatinine Ratio 16.9 mg/g (0-30); Microalbumin Urine Random < 13.0 mg/L
[2024-04-22 08:45] LABS: Bacteria Urine 1+ /hpf; RBC Urine None seen /hpf (0-2); Squamous Epithelial Cell Urine Few /hpf (Few); WBC Urine 0-5 /hpf (0-3)
[2024-04-22 09:18] LABS: Alanine Aminotransferase 29 U/L (14-59); Albumin Level 3.3 g/dL (3.4-5.0); Alkaline Phosphatase 150 U/L (46-116); Ammonia 19 umol/L (11-32); Anion Gap 6 mmol/L (4-12); Bilirubin Direct 0.3 mg/dL (0-0.2); Blood Urea Nitrogen 16 mg/dL (7-18); Calcium 9.5 mg/dL (8.5-10.1); Carbon Dioxide 30 mmol/L (21-32); Chloride 102 mmol/L (98-108); Estimated Glomerular Filt Rate > 60; Ferritin 216 ng/mL (8-252); GGT 117 U/L (5-55); Glucose 125 mg/dL (70-99); HDL Direct 68 mg/dL (40-60); Iron 119 ug/dL (50-170); Osmolality Calculated 288 mOsm/kg (285-295); Sodium 138 mmol/L (136-145); Total Protein 7.2 g/dL (6.4-8.2); Triglycerides 116 mg/dL (0-150)
[2024-04-22 09:54] LABS: Aspartate Amino Transferase 36 U/L (15-37); Cholesterol 249 mg/dL (0-200); LDL Cholesterol Calculated 158 mg/dL (<130)
[2024-04-23 16:28] LABS: Vitamin D 25 Hydroxy 21 ng/mL (30-100)
[2024-04-25 11:24] LABS: Alpha Fetoprotein Tumor Marker 2.4 ng/mL
== END 2024-04-22 07:55 | disposition home or self-care (01) ==
LOC: CHSLAB 07:57
PROVIDERS: PCP Internal Medicine; Visit Provider Internal Medicine Gastroenterology
DX: K74.3 Primary biliary cirrhosis (principal); K74.02 Hepatic fibrosis, advanced fibrosis; E11.9 Type 2 diabetes mellitus without complications; I10 Essential (primary) hypertension; E78.2 Mixed hyperlipidemia; M81.0 Age-related osteoporosis without current pathological fracture
CPT/HCPCS: 36415; 80053; 80061; 81001; 82043; 82105; 82140; 82248; 82306; 82728; 82977; 83036; 83540; 85025

== ENCOUNTER 2024-08-11 14:38 | Outpatient (CLI) | payer MEDICARE, SELFPAY ==
--- NOTE | ~2024-08-11 | XR_ITS ---
AP and lateral views of the bilateral hips Clinical history: Pain Findings: No acute fracture or dislocation is seen. Osseous alignment is anatomic. There is moderate osteoarthritis of both hip joints, with osteophyte formation at the femoral head neck junctions.. Sof t tissues are unremarkable. Impression: Moderate osteoarthritis of both hip joints. Reviewed, dictated and finalized at location . Impression: Moderate osteoarthritis of both hip joints.
--- OUTSIDE RECORDS SUMMARY | 2024-08-11 16:49 | XMS_ITS | Encounter Summary ---
Author Organization [facility] Address [address] [place] [address] Phone Care Team Providers Care Spray Stainer Name Role Phone Jacob Castellano MD Primary Care Provider [phone] Encounter Details Date Type Department Care Team (Late st Contact Info) Description 06/10/2019 Orders Only [facility] Scanning, Provider Social History Tobacco Use Types Packs/Day Years Used Date Smoking Tobacco: Never Comments Unknown Sex and Gender Information Value Date Recorded Sex Assigned at Not on file Legal Sex Female 3:51 AM DAYTIME CAREGIVER Gender Identity Female 12/29/2020 4:15 PM CDT Sexual Orientation Straight 06/19/2022 8: 32 PM DAYTIME CAREGIVER documented as of this encounter Plan of Treatment Not on file documented as of this encounter Procedures Procedure Name Priority Date/Time Associated Diagnosis Comments SCAN - LABS 06/10/2019 documented in this encounter Results * SCAN - LABS (06/10/2019) us Provider Scanning Final Result documented in this encounter Visit Diagnoses Not on filedocumented in this encounter Care Teams Spray Stainer Relationship Specialty Start Date End Date Jacob Castellano MD [address] [place], [place] [id number] PCP - General 03/20/17 documented as of this encounter
--- OUTSIDE RECORDS SUMMARY | 2024-08-11 16:49 | XMS_ITS | Encounter Summary ---
Author Organization [facility] Address [address] [place] [address] Phone Care Team Providers Care Cook Chief Name Role Phone Jacob Castellano MD Primary Care Provider [phone] Encounter Details Date Type Department Care Team (Latest Contact Info) Description 03/12/2022 Orders Only [facility] Scanning, Provider Social History Tobacco Use Types Packs/Day Years Used Date Smoking Tobacco: Never Smokeless Tobacco: Never Alcohol Use Standard Drinks/Week Comments Yes 4 (1 standard drink = 0.6 oz pur e alcohol) 4 glasses/week Comments Unknown Sex and Gender Information Value Date Recorded Sex Assigned at Not on file Legal Sex Female 3:51 AM LIFT TRUCK MECHANIC Gender Identity Female 12/29/2020 4:15 PM CDT Sexual Orientation Straight 06/19/2022 8: 32 PM LIFT TRUCK MECHANIC documented as of this encounter Plan of Treatment Not on file documented as of this encounter Procedures Procedure Name Priority Date/Time Associated Diagnosis Comments SCAN - LABS 03/12/2022 documented in this encounter Results * SCAN - LABS (03/12/2022) us Provider Scanning Final Result documented in this encounter Visit Diagnoses Not on filedocumented in this encounter Care Teams Cook Chief Relationship Specialty Start Date End Date Jacob Castellano MD [address] [place] [address] PCP - General 03/20/17 documented as of this encounter
--- OUTSIDE RECORDS SUMMARY | 2024-08-11 16:49 | XMS_ITS | Encounter Summary ---
Author Organization [facility] Address [address] [place] [address] Phone Care Team Providers Care Cotton Wringer Name Role Phone Jacob Castellano MD Primary Care Provider + [phone] Encounter Details Date Type Department Care Team (Late st Contact Info) Description 07/09/2024 Results Follow-Up [facility] [address] [facility] [address] [place] [address] Holly Dwyer MD [address] [place] [address] Social History Tobacco Use Types Packs/Day Years Used Date Smoking Tobacco: Never Smokeless Tobacco: Never Alcohol Use Standard Drinks/Week Comments Yes 4 (1 standard drink = 0.6 oz pur e alcohol) 4 glasses/week AUDIT-C Answer Date Recorded Q1: How often do you have a drink containing alc ohol? 2-3 times a week 06/26/2022 Q2: How many drinks containi ng alcohol do you have on a typical day when you are drinking? 1 or 2 06/26/2022 Q3: How often do you have si x or more drinks on one occasion? Never 06/26/2022 Personal Safety Answer Date Recorded Getting School Help Needed Denies 06/25 Comments No Sex and Gender Information Value Date Recorded Sex Assigned at Not on file Legal Sex Female 3:51 AM RESIDENTIAL ASSISTANT Gender Identity Female 12/29/2020 4:15 PM CDT Sexual Orientation Straight 06/19/2022 8: 32 PM RESIDENTIAL ASSISTANT documented as of this encounter Plan of Treatment Not on file documented as of this encounter Visit Diagnoses Not on filedocumented in this encounter Care Teams Cotton Wringer Relationship Specialty Start Date End Date Jacob Castellano MD [address] [place] [id number] PCP - General 03/20/17 documented as of this encounter
--- OUTSIDE RECORDS SUMMARY | 2024-08-11 16:49 | XMS_ITS | Encounter Summary ---
Author Organization [facility] Address [address] [place] [address] Phone Care Team Providers Care Camera Systems Engineer Name Role Phone Jacob Castellano MD Primary Care Provider + [phone] Encounter Details Date Type Department Care Team (Late st Contact Info) Description 04/22/2024 Orders Only [facility] Scanning, Provider [...] on file Legal Sex Female 3:51 AM SALES SUPPORT MANAGER Gender Identity Female 12/29/2020 4:15 PM CDT Sexual Orientation Straight 06/19/2022 8: 32 PM SALES SUPPORT MANAGER documented as of this encounter Plan of Treatment Not on file documented as of this encounter Procedures Procedure Name Priority Date/Time Associated Diagnosis Comments SCAN - LABS 04/22/2024 documented in this encounter Results * SCAN - LABS (04/22/2024) us Provider Scanning Edited Result - Final documented in this encounter Visit Diagnoses Not on filedocumented in this encounter Care Teams Camera Systems Engineer Relationship Specialty Start Date End Date Jacob Castellano MD [address] [place], [place] [phone] PCP - General 03/20/17 documented as of this encounter
--- OUTSIDE RECORDS SUMMARY | 2024-08-11 16:49 | XMS_ITS | Encounter Summary ---
Author Organization [facility] Address [address] [place] [address] Care Team Providers Care Strategic Alliances Manager Name Role Phone Jacob Castellano MD Primary Care Provider [phone] Encounter Details Date Type Department Care Team (Late st Contact Info) Description 04/04/2022 Prep for Procedure [facility] [address] [place], [place] [id number] Daniel Nickerson MD [address] [place] [address], [facility] [address] [place], [place] [id number] Social History Tobacco Use Types Packs/Day Years Used Date Smoking Tobacco: Never Alcohol Use Standard Drinks/Week Comments Yes 0 (1 standard drink = 0.6 oz pur e alcohol) 4-5xweek wisky and wine Comments No Sex and Gender Information Value Date Recorded Sex Assigned at Not on file Legal Sex Female 7:45 AM PRODUCTION DISPATCHER Gender Identity Not on file Sexual Orientation Not on file COVID-19 Exposure Response Date Recorded In the last 10 days, have yo u been in contact with someone who was confirmed or suspected to have Coronavirus/COVID-19? No / Unsure 04/06/2022 11:13 AM PRODUCTION DISPATCHER documented as of this encounter Plan of Treatment Not on file documented as of this encounter Visit Diagnoses Not on filedocumented in this encounter Care Teams Strategic Alliances Manager Relationship Specialty Start Date End Date Jacob Castellano MD [address] [place] [address] PCP - General INTERNAL MEDICINE 03/23/21 documented as of this encounter
--- OUTSIDE RECORDS SUMMARY | 2024-08-11 16:49 | XMS_ITS | Clinical Summary ---
Author Organization [facility] Address [address] [place] [address] Care Team Providers Care Intelligence Agent Name Role Phone Jacob Castellano MD Primary Care Provider [phone] Allergies Active Allergy Reactions Criticality Noted Date Comments Iron Dextran Itching Low 03/14/2016 Sulfa (Sulfonamide Antibiotics) Hives High 11/04 Medications multivitamin tabletIndication s:Vitamin Deficiency Prevention daily. Active metFORMIN (GLUCOPHAGE) 500 mg tablet 2 (two) times a day with meals Active atorvastatin (LIPITOR) 10 mg tablet daily. Active Lactobacillus acidophilus 20 billion cell capsule unsure med dosage qd Active FLUAD 7069-9384, 65 YR UP,,PF, 45 mcg (15 mcg x 3)/0.5 mL syringe ADM 0.5ML IM UTD 0 8 Active calcitRIOL (ROCALTROL) 0.5 mcg capsule daily 2 tabs qd 0 Active latanoprost (XALATAN) 0.005 % ophthalmic solution INT 1 GTT IN OU HS [address] (PROTONIX) 40 mg EC tablet daily 0 Active zoledronic gxkq-lurntirH-qz ter (RECLAST) 5 mg/100 mL piggyback Infuse 100 mL (5 mg total) into a venous catheter once Active Januvia 100 mg tablet 1 tablet (100 mg total) daily 3 Active ursodioL (ACTIGALL) 300 mg capsule Take 2 capsules (600 mg total) by mouth 2 (two) times a day 120 capsule 11 3 Active nadoloL (CORGARD) 20 mg tablet Take 1 tablet (20 mg total) by mouth daily 90 tablet 2 4 Active Active Problems Problem Noted Date Diagnosed Date 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 04/26/2022 Overview (04/26/2022): Added automatically from request for surgery [id number] Esophageal varices without bleeding 03/11/2020 Overview (03/11/2020): Added automatically from request for surgery [id number] Encounters Date Type Department Care Team Description 07/09/2024 Results Follow-Up [facility] Gastroenterology [address] [facility] [address] [place] [address] [place] [address] Holly Dwyer MD 07/07/2024 7:55 AM LEADITE HEATER - 07/07/2024 11:59 PM LEADITE HEATER [place] [address] 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); Hepatic fibrosis, advanced fibrosis Discharge Disposition: Discharge to home or self care from Last 3 Months Immunizations Immunization Administration Dates Next Due Moderna SARS-CoV-2 Monovalen t Vaccination (12+ YRS) 03/04/2021,07/16/2020,06/19/2020 Surgical History Surgery Date Site/Laterality Comments CHOLECYSTECTOMY TONSILLECTOMY COLONOSCOPY UPPER GASTROINTESTINAL ENDOSCOPY Medical History Medical History Date Comments Body mass index (BMI) of 28.0-28.9 in adult BMI 28.0-28.9,adult - 11.8.16 - DN (Added by TW Conv) GERD (gastroesophageal reflux disease) Irritable bowel syndrome Type 2 diabetes mellitus (HCC) History of transfusion Glaucoma Hyperlipidemia Family History Medical History Relation Name Comments Hypertension Father Family history of hypertension - (Added by TW Conv) Stroke Father Family history of cerebrovascular accident (CVA) - (Added by TW Conv) Relation Name Status Comments Father Social History Tobacco Use Types Packs/Day Years Used Date Smoking Tobacco: Never Smokeless Tobacco: Never Tobacco Cessation:Counseling Given: Not Answered Alcohol Use Standard Drinks/Week Comments Yes 4 [...] on file Legal Sex Female 3:51 AM LEADITE HEATER Gender Identity Female 12/29/2020 4:15 PM CDT Sexual Orientation Straight 06/19/2022 8: 32 PM LEADITE HEATER Obstetrics History Last Filed Vital Signs Vital Sign Reading Time Taken Comments Blood Pressure 136/79 01/10/2024 9:16 AM CDT Pulse 67 01/10/2024 9:16 AM CDT Temperature 36.3 C (97.3 F) 01/10/2024 9:16 AM CDT Respiratory Rate 16 06/26/2022 10:2 9 AM LEADITE HEATER Oxygen Saturation 98% 01/11/2023 8:40 AM CDT Inhaled Oxygen Concentration - - Weight 79.7 kg (175 lb 12.8 oz) 01/10/2024 9:16 AM CDT Height 170.2 cm (5' 7 ) 01/10/2024 9:16 AM CDT Body Mass Index 27.53 01/10/2024 9:16 AM CDT Plan of Treatment Health Maintenance Due Date Last Done Comments Breast Cancer Screening-Mammogram 1950 Depression Screening 1950 Osteoporosis Screening-Bone Density Scan 1950 Zoster Vaccine (2 of 3) 04/28/2013 03/03/2013 Well Visit 65+ 01/17/2017 DTaP/Tdap/Td Vaccine (2 - Td or Tdap) 02/28/2021 02/28/2011 Fall Risk Assessment 06/26/2023 06/26/2022 Covid-19 Vaccine (4 - 2023-2 5 season) 2024 03/04/2021, 07/16/2020, 06/19/2020 Colon Cancer Screening-Colonoscopy 05/22/2027 05/22/2017 Hepatitis C Screening Completed 04/24/2013 Pneumococcal vaccine 65+ Completed 03/23/2017, 01/06 Colon Cancer Screening-CT Colonography Discontinued 05/22/2017 Colon Cancer Screening-DNA Stool Discontinued 05/22/19 Colon Cancer Screening-FIT Discontinued 05/22/2017 Colon Cancer Screening-Sigmoidoscopy Discontinued 05/22/2017 Influenza Vaccine Completed 03/20/2024, , 03/23/2017, Additional history exists Procedures Procedure Name Priority Date/Time Associated Diagnosis Comments US ABDOMEN LIMITED Schedule Routine, Read Routine (OP Routine) 07/07/2024 8:17 AM LEADITE HEATER 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 TECHNIQUE: Ultrasound of the right upper quadrant of the abdomen was performed with grayscale and color Doppler. COMPARISON: None. FINDINGS: PANCREAS: Visualized portions of the pancreas are within normal limits. Portions of the pancreatic body and tail are obscured due to bowel gas. LIVER: The liver is increased in echogenicity. There is a nodular surface contour of the liver. Liver measures 16.9 cm. No focal hepatic lesions are seen. Antegrade direction of flow shown in the main portal vein. GALLBLADDER: Surgically absent. BILIARY: There is no intrahepatic biliary ductal dilatation. The common bile duct measures 0.6 cm in diameter. RIGHT KIDNEY: Right kidney is 11.2 cm in length. There is no hydronephrosis. The echogenicity is normal. OTHER: No other significant finding. IMPRESSION: Hepatic steatosis and cirrhosis. No focal hepatic lesion. Cholecystectomy. THIS IS AN ELECTRONICALLY VERIFIED FINAL REPORT 07/09/2024 6:52 AM - Electronically signed by Jarett Ordonez M.D. CH: REESE Report ID: [id number] Reading Location: [id number] Procedure Note Jarett Ordonez Jr., MD - 07/09/2024 EXAM DESCRIPTION: US ABDOMEN LIMITED REASON FOR STUDY: Cirrhosis for several years, cholecystectomy. TECHNIQUE: Ultrasound of the right upper quadrant of the abdomen wasperformed with grayscale and color Doppler. COMPARISON: None. FINDINGS: PANCREAS: Visualized portions of the pancreas are within normal limits. Portions of the pancreatic body and tail are obscured due to bowel gas. LIVER: The liver is increased in echogenicity. There is a nodularsurface contour of the liver. Liver measures 16.9 cm. No focal hepatic lesionsare seen. Antegrade direction of flow shown in the main portal vein. GALLBLADDER: Surgically absent. BILIARY: There is no intrahepatic biliary ductal dilatation. The commonbile duct measures 0.6 cm in diameter. RIGHT KIDNEY: Right kidney is 11.2 cm in length. There is nohydronephrosis. The echogenicity is normal. OTHER: No other significant finding. IMPRESSION: Hepatic steatosis and cirrhosis. No focal hepatic lesion. Cholecystectomy. THIS IS AN ELECTRONICALLY VERIFIED FINAL REPORT 07/09/2024 6:52 AM - Electronically signed by Jarett Ordonez M.D. CH: REESE Report ID: [id number] Reading Location: [id number] Holly Dwyer MD IMG US PROCEDURES Fi nal Result * COLONOSCOPY REPORT (05/22/2017) Anatomical Region Laterality Modality Other us Provider Scanning GI PROCEDURE ORDERABLES Final Result from Last 3 Months or Most Recently Relevant to Health Maintenance Insurance [facility] MEDICARE ADVANTAGE [facility] MEDIC[facility] Address: [address] [address] [place] [address] [id number] MEDICARE [employer] MEDICARE Advance Directives For more information, please contact: [phone] * Full Code (Latest Code Status on File) Date Activated Date Inactivated Comments 06/26/2022 9:09 AM 06/26/2022 2:40 PM * Full Code Date Activated Date Inactivated Comments 04/27/2020 8:09 AM 04/27/2020 2:18 PM Care Teams Intelligence Agent Relationship Specialty Start Date End Date Jacob Castellano MD [address] [place] [id number] PCP - General 03/20/17
--- OUTSIDE RECORDS SUMMARY | 2024-08-11 16:49 | XMS_ITS | Clinical Summary ---
Author Organization [facility] Care Team Providers Care Surgical Instrument Mechanic Name Role Phone Benny Fair MD Primary Care Provider [phone] Allergies Active Allergy Reactions Criticality Noted Date Comments Sulfa Antibiotics Hives High 11/21/2018 Medications fish oil-omega-3 fatty acids (FISH OIL) 1000 MG PO CAPS Take 4 Caps by mouth daily. Active ursodiol 300 MG PO CAPS Take 1 Tab by mouth 2 times daily. Active Probiotic Product (ACIDOPHILUS HIGH-POTENCY) PO CAPS Take 1 Cap by mouth daily. Active calcium carbonate 600 MG PO TABS Take 1 Tab by mouth daily. Active IBUPROFEN PO Take by mouth as needed. Active ezetimibe (ZETIA) 10 MG PO TABS Take 1 Tab by mouth daily. 56 Tab 0 02/07/2011 Active atorvastatin 40 MG PO TABS Take 40 mg by mouth daily. Active metFORMIN (GLUCOPHAGE-XR) 500 MG TABLET SR 24 HR TK 1 T PO BID 0 10/04/2018 Active atorvastatin (LIPITOR) 10 MG Tablet TK 1 T PO QD 0 10/23/2018 Active amoxicillin-clav ulanate (AUGMENTIN) 875-125 MG Tablet 1 tab twice daily 20 Tab 11/21/2018 Active Active Problems Problem Noted Date Diagnosed Date Type 2 diabetes mellitus 03/22/2006 Nonspecific elevation of lev els of transaminase or lactic acid dehydrogenase (LDH) Resolved Problems Problem Noted Date Diagnosed Date Resolved Date Encounter for long-term (cur rent) use of medications 02/24/2010 06/09/2010 Pure hypercholesterolemia - Managed by [facility]: LDL <100 03/20/2006 10/13/2011 Social History Tobacco Use Types Packs/Day Years Used Date Smoking Tobacco: Never Smokeless Tobacco: Never Comments No Sex and Gender Information Value Date Recorded Sex Assigned at Not on file Legal Sex Female 3:54 AM IMPORT EXPORT AGENT Gender Identity Not on file Sexual Orientation Not on file Last Filed Vital Signs Vital Sign Reading Time Taken Comments Blood Pressure 128/64 11/21/2018 10:05 AM CDT Pulse 69 11/21/2018 10:05 AM CDT Temperature 36.7 C (98 F) 11/21/2018 10:05 AM CDT Respiratory Rate 20 11/21/2018 10:05 AM CDT Oxygen Saturation 98% 11/21/2018 10:05 AM CDT Inhaled Oxygen Concentration - - Weight 79.8 kg (176 lb) 11/21/2018 10:05 AM CDT Height 170.2 cm (5' 7 ) 11/21/2018 10:05 AM CDT Body Mass Index 27.57 11/21/2018 10:05 AM CDT Plan of Treatment Health Maintenance Due Date Last Done Comments DEXA Bone Density 1950 Diabetes: Eye Exam 1950 Diabetes: Foot Exam 1950 Hepatitis C Virus (HCV) Screening 1950 Colonoscopy 01/17/1997 Colorectal Cancer Screening 01/17/1997 Cologuard 01/17/2002 Immunochemical Fecal Occult Blood 01/17/2002 Mammogram 01/17/2002 Diabetes: Nephropathy Screening 07/30/2010 07/30/2009 Diabetes: Hemoglobin A1c 11/29/2010 06/01/2010 Zoster Immunization (2 of 3) 04/28/2013 03/03/2013 Influenza Immunization (#1) 01/06/202403/07, 03/23/2017, 01/21/2016, Additional history exists SARS-COV-2 Immunization (2023- season) 2024 Respiratory Syncytial Virus (RSV) Immunization (Adult) (1 - 1-dose 75+ series) 01/17/2027 Hepatitis B Immunization Completed 009, 04/22/2008, 03/25/2008 DTaP/Tdap/Td Immunization Discontinued 02/28/2011 TdaP Immunization Completed 02/28/2011 Pneumococcal Immunization (50+ years) Completed 03/23/2017, 02/03/2016 Pneumococcal Immunization Combined Discontinued 03/23/2017, 02/03/2016 Meningococcal Immunization (ACWY) Aged Out No longer eligible based on patient's age to complete this topic Rotavirus Immunization Aged Out No lo nger eligible based on patient's age to complete this topic Procedures Procedure Name Priority Date/Time Associated Diagnosis Comments HEMOGLOBIN A1C W/ ESTIMATED GLUCOSE Routine 06/01/2010 DM w/o complication type II CREATININE BLOOD W/ GFR Routine 07/30/2009 from Last 3 Months or Most Recently Relevant to Health Maintenance Results * HEMOGLOBIN A1C W/ ESTIMATED GLUCOSE (06/01/2010) HGB-A1C 6.2 % Blood specimen (specimen) Jair Loo MD CHEMISTRY ORDERABLES Final R esult * CREATININE BLOOD W/ GFR (07/30/2009) CREATININE, BLOOD 0.62 Blood specimen (specimen) Historical Provider CHEMISTRY ORDERABLES Anyi l Result from Last 3 Months or Most Recently Relevant to Health Maintenance Care Teams Surgical Instrument Mechanic Relationship Specialty [place] [address] [place] [address] PCP - General 08/08/09
--- OUTSIDE RECORDS SUMMARY | 2024-08-11 16:49 | XMS_ITS | Clinical Summary ---
Author Organization [facility] Address [facility]ly [facility] [place] [address] Care Team Providers Care Reproduction Order Processor Name Role Phone Jacob Castellano MD Primary Care Provider [phone] Allergies Active Allergy Reactions Criticality Noted Date Comments Sulfa Antibiotics Hives 03/23/2021 Medications metFORMIN 500 MG tablet Take 500 mg by mouth 2 (two) times daily with meals. Active pantoprazole EC 40 MG tablet Take 40 mg by mouth daily. Active nadolol 20 MG tablet Take 20 mg by mouth daily. Active ursodiol 300 MG capsule Take 600 mg by mouth 2 (two) times daily. Active atorvastatin 10 MG tablet Take 10 mg by mouth nightly at bedtime. Active calcitriol 0.5 MCG capsule Take 0.5 mcg by mouth daily. Active Probiotic Product (PROBIOTIC ADVANCED) Cap Active latanoprost 0.005 % ophthalmic solution 1 drop nightly at bedtime. Active zoledronic acid 5 MG/100ML Solution infusionIndicat ions:yearly Inject 5 mg into the vein once. Indications: yearly Active HYDROcodone-dima taminophen 5-325 MG tablet Take 1-2 tablets by mouth every 6 (six) hours as needed. 03/19/2021 Active Active Problems Problem Noted Date Diagnosed Date Closed fracture of distal end of left radius Immunizations Name Administration Dates Next Due MODERNA COVID-19 (12+) MRNA, LNP-S, PF, 100 MCG/ 0.5 ML DOSE 03/04/2021,07/16/2020,06/19/2020 Social History Tobacco Use Types Packs/Day Years Used Date Smoking Tobacco: Never Smokeless Tobacco: Never Tobacco Cessation:Counseling Given: Not Answered Alcohol Use Standard Drinks/Week Comments Yes 0 (1 standard drink = 0.6 oz pur e alcohol) 4-5xweek wisky and wine Comments No Sex and Gender Information Value Date Recorded Sex Assigned at Not on file Legal Sex Female 7:45 AM ASSISTANT OPERATOR Gender Identity Not on file Sexual Orientation Not on file Last Filed Vital Signs Vital Sign Reading Time Taken Comments Blood Pressure 171/65 04/06/2022 4:00 PM ASSISTANT OPERATOR Pulse 57 04/06/2022 4:00 PM ASSISTANT OPERATOR Temperature 36.1 C (97 F) 04/06/2022 2:37 PM ASSISTANT OPERATOR Respiratory Rate 20 04/06/2022 4:00 PM ASSISTANT OPERATOR Oxygen Saturation 100% 04/06/2022 4:00 PM ASSISTANT OPERATOR Inhaled Oxygen Concentration - - Weight 77.6 kg (171 lb) 04/06/2022 11:38 AM ASSISTANT OPERATOR Height 170.2 cm (5' 7 ) 04/06/2022 11:38 AM ASSISTANT OPERATOR Body Mass Index 26.78 04/06/2022 11:38 AM ASSISTANT OPERATOR Plan of Treatment Health Maintenance Due Date Last Done Comments Colorectal Cancer Screening Colonoscopy (10 Years) 1950 Hepatitis C 01/17/1970 DTaP, Tdap and Td Vaccines ( 1 - Tdap) 01/17/1971 Mammogram Screening 1992 Zoster Vaccines (1 of 2) 01/17/2002 Annual Medicare Wellness Visit 01/17/2017 Dexa Scan (General) 01/17/2017 Pneumococcal Vaccine: 65+ Years (1 of 1 - PCV) 01/17/2017 COVID-19 Vaccine (2023-2 5 season) 2024 03/04/2021, 07/16/2020, 06/19/2020 RSV Immunization or 60+ Years (1 - 1-dose 75+ series) 01/17/2027 Meningococcal B Vaccine Aged Out No l onger eligible based on patient's age to complete this topic Meningococcal Vaccine Aged Out No wen wong eligible based on patient's age to complete this topic RSV Immunizations Under 20 Months Aged Out No longer eligible b ased on patient's age to complete this topic Medical Devices Implanted Type Area Environmental Health Safety Manager Device Identifier Shelf Expiration Date Model / Serial / Lot 2.4 Mm Va-Lcp Two-Column Volar Distal Radius Plate Implanted:Qty: 1 on 03/24/2021 by Daniel Nickerson MD at [facility] Plate Right: Wrist SYNTHES 630 / / Description: 2.4 Mm Coretx Screw, Self Tapping, With T8 Stardrive Recess, 14mm Implanted:Qty: 2 on 03/24/2021 by Daniel Nickerson MD at [facility] Screw Right: Wrist SYNTHES 764 / / Description:764 2.4 Mm Variable Angle Locking Screws, With T8 Stardrive Recess, 20mm Implanted:Qty: 1 on 03/24/2021 by Daniel Nickerson MD at [facility] Screw Right: Wrist SYNTHES 120 / / Description:120 2.4 Mm Variable Angle Locking Screws, With T8 Stardrive Recess, 18mm Implanted:Qty: 2 on 03/24/2021 by Daniel Nickerson MD at [facility] Screw Right: Wrist SYNTHES 118 / / Description: 2.4 Mm Cortex Screw, Self-Tapping, With T8 Stardrive Recess, 12mm Implanted:Qty: 1 on 03/24/2021 by Daniel Nickerson MD at [facility] Screw Right: Wrist SYNTHES 762 / / Description:76 2.4 Mm Variable Angle Locking Screws, With T8 Star Drive Recess, 16mm Implanted:Qty: 1 on 03/24/2021 by Daniel Nickerson MD at [facility] Screw Right: Wrist SYNTHES 116 / / Description:116 2.4mm Variable Angle Locking Screws, With T8 Stardrive Recess Implanted:Qty: 1 on 04/06/2022 by Daniel Nickerson MD at [facility] Left: Wrist SYNTHES 116 / / 2.4mm Variable Angle Locking Screws, With T8 Stardrive Recess Implanted:Qty: 2 on 04/06/2022 by Daniel Nickerson MD at [facility] Left: Wrist SYNTHES 118 / / 2.4mm Variable Angle Locking Screws, With T8 Stardrive Recess Implanted:Qty: 1 on 04/06/2022 by Daniel Nickerson MD at [facility] Left: Wrist SYNTHES 02.210.120 / / 2.4mm Cortex Screw, Self-Tapping, With T8 Stardrive Recess Implanted:Qty: 1 on 04/06/2022 by Daniel Nickerson MD at [facility] Left: Wrist SYNTHES 201.762 / / 2.4mm Cortex Screw, Self-Tapping, With T8 Stardrive Recess Implanted:Qty: 2 on 04/06/2022 by Daniel Nickerson MD at [facility] Left: Wrist SYNTHES 201.764 / / 2.4mm Va-Lcp Two-Column Volar Distal Radius Plates Implanted:Qty: 1 on 04/06/2022 by Daniel Nickerson MD at [facility] Left: Wrist SYNTHES 02.111.631 / / Explanted Type Area Environmental Health Safety Manager Device Identifier Shelf Expiration Date Model / Serial / Lot Drill Bit, 1.8mm With Depth Kevin, Quick Coupling, 110 Mm Explanted:Qty: 1 on 03/24/2021 by Daniel Nickerson MD at [facility] Right: Wrist SYNTHES 310.509 / / Description:310.509 Plate Reduction Wire, 1.25 Plate Reduction Wire, Small Stop Explanted:Qty: 2 on 03/24/2021 by Daniel Nickerson MD at [facility] Right: Wrist SYNTHES .500. 10 / / Description:.500.10 Insurance [facility] MEDICARE Care Teams Reproduction Order Processor Relationship Specialty Start Date End Date Jacob Castellano MD [address] [place] [id number] PCP - General INTERNAL MEDICINE 03/23/21
--- OUTSIDE RECORDS SUMMARY | 2024-08-11 16:49 | XMS_ITS | Referral Summary ---
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 Active metFORMIN (GLUCOPHAGE) 500 mg tablet 2 (two) times a day with meals Active atorvastatin (LIPITOR) 10 mg tablet daily. Active Lactobacillus acidophilus 20 billion cell capsule unsure med dosage qd Active FLUAD 1435-5380, 65 YR UP,,PF, 45 mcg (15 mcg x 3)/0.5 mL syringe ADM 0.5ML IM UTD 0 11/14/201 8 Active calcitRIOL (ROCALTROL) 0.5 mcg capsule daily 2 tabs qd 0 Active latanoprost (XALATAN) 0.005 % ophthalmic solution INT 1 GTT IN OU HS [address] (PROTONIX) 40 mg EC tablet daily 0 Active zoledronic oulz-tkmztbhU-jm ter (RECLAST) 5 mg/100 mL piggyback Infuse [...] (04/26/2022): Added automatically from request for surgery [id number] Esophageal varices without bleeding 03/11/2020 Overview (03/11/2020): Added automatically from request for surgery [id number] Immunizations Immunization Administration Dates Next Due Moderna SARS-CoV-2 Monovalen t Vaccination (12+ YRS) 03/04/2021,07/16/2020,06/19/2020 Social History Tobacco Use Types Packs/Day [...] on file Legal Sex Female 3:51 AM SUBMARINE ELEMENT COORDINATOR Gender Identity Female 12/29/2020 4:15 PM CDT Sexual Orientation Straight 06/19/2022 8: 32 PM SUBMARINE ELEMENT COORDINATOR Last Filed Vital Signs Vital Sign Reading Time Taken Comments Blood Pressure 136/79 01/10/2024 9:16 AM CDT Pulse 67 01/10/2024 9:16 AM CDT Temperature 36.3 C (97.3 F) 01/10/2024 9:16 AM CDT Respiratory Rate 16 06/26/2022 10:2 9 AM SUBMARINE ELEMENT COORDINATOR Oxygen Saturation 98% 01/11/2023 8:40 AM CDT Inhaled Oxygen Concentration - - Weight 79.7 kg (175 lb 12.8 oz) 01/10/2024 9:16 AM CDT Height 170.2 cm (5' 7 ) 01/10/2024 9:16 AM CDT Body Mass Index 27.53 01/10/2024 9:16 AM CDT Plan of Treatment Not on file Procedures Procedure Name Priority Date/Time Associated Diagnosis Comments US ABDOMEN LIMITED Schedule Routine, Read Routine (OP Routine) 07/07/2024 8:17 AM SUBMARINE ELEMENT COORDINATOR 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 CH: Report ID: [id number] Reading Location: [id number] Procedure Note Jarett Ordonez Jr., MD - [...] Electronically signed by Jarett Ordonez M.D. CH: Report ID: [id number] Reading Location: [place] [address] us Holly Dwyer MD IMG US PROCEDURES Fi nal Result * COLONOSCOPY REPORT (05/22/2017) Anatomical Region Laterality Modality Other us Provider Scanning GI PROCEDURE ORDERABLES Final Result from Last 3 Months or Most Recently Relevant to Health Maintenance Insurance [facility] [employer] ADV[facility]AGE [facility] MEDICARE [facility] MEDICARE Advance Directives For more information, please contact: [phone] * Full Code (Latest Code Status on File) Date Activated Date Inactivated Comments 06/26/2022 9:09 AM 06/26/2022 2:40 PM * Full Code Date Activated Date Inactivated Comments 04/27/2020 8:09 AM 04/27/2020 2:18 PM Care Teams Paving Foreman Relationship Specialty Start Date End Date Jacob Castellano MD [address] [place], [place] [id number] PCP - General 03/20/17
--- OUTSIDE RECORDS SUMMARY | 2024-08-11 16:49 | XMS_ITS | Encounter Summary ---
Author Organization [facility] Address [address] [place] [address] Phone Care Team Providers Care Sales Associate Name Role Phone Jacob Castellano MD Primary Care Provider + [phone] Encounter Details Date Type Department Care Team (Late st Contact Info) Description 09/13/2022 Orders Only [facility] Scanning, Provider [...] more drinks on one occasion? Never 06/26/2022 Comments No Sex and Gender Information Value Date Recorded Sex Assigned at Not on file Legal Sex Female 3:51 AM FUR NAILER Gender Identity Female 12/29/2020 4:15 PM CDT Sexual Orientation Straight 06/19/2022 8: 32 PM FUR NAILER documented as of this encounter Plan of Treatment Not on file documented as of this encounter Procedures Procedure Name Priority Date/Time Associated Diagnosis Comments SCAN - LABS 09/13/2022 documented in this encounter Results * SCAN - LABS (09/13/2022) us Provider Scanning Final Result documented in this encounter Visit Diagnoses Not on filedocumented in this encounter Care Teams Sales Associate Relationship Specialty Start Date End Date Jacob Castellano MD [address] [place], [place] [id number] PCP - General 03/20/17 documented as of this encounter
--- OUTSIDE RECORDS SUMMARY | 2024-08-11 16:49 | XMS_ITS | Encounter Summary ---
Author Organization [facility] Address [address] [place] [address] Care Team Providers Care Lime Hide Inspector Name Role Phone Jacob Castellano MD Primary Care Provider [phone] Encounter Details Date Type Department Care Team (Late st Contact Info) Description 03/23/2021 Prep for Procedure [facility] [address] [place], [place] [id number] Nina Nickerson MD [address] [place] [address], [facility] [address] [place], [place] [id number] Social History Tobacco Use Types Packs/Day Years Used Date Smoking Tobacco: Never Smokeless Tobacco: Current Snuff Alcohol Use Standard Drinks/Week Comments Yes 0 (1 standard drink = 0.6 oz pur e alcohol) 1 drink a day Comments Unknown Sex and Gender Information Value Date Recorded Sex Assigned at Not on file Legal Sex Female 7:45 AM CIGAR MACHINE FEEDER Gender Identity Not on file Sexual Orientation Not on file COVID-19 Exposure Response Date Recorded In the last month, have you been in contact with someone who was confirmed or suspected to have Coronavirus / COVID-19? No / Unsure 03/23/2021 1:03 PM CIGAR MACHINE FEEDER documented as of this encounter Plan of Treatment Not on file documented as of this encounter Results * ECG 12-Lead (03/23/2021 1:19 PM CIGAR MACHINE FEEDER) 03/23/2021 1:19 PM CIGAR MACHINE FEEDER Narrative [facility] RAD - 03/24/2021 6:34 PM CIGAR MACHINE FEEDER [facility] Test Date: 2021-03-23 Pat Name: AGNIESZKA CRANDALL Department: Room: Gender: Female Petroleum Refining Firer: : 1950 Requested By: NINA NICKERSON Order Number: [id number] Reading : Nina Figueroa Measurements Intervals Lenora Rate: 62 P: 62 IN: 128 QRS: 43 QRSD: 90 T: 58 QT: 384 QTc: 391 Interpretive Statements SINUS RHYTHM LOW QRS VOLTAGE IN PRECORDIAL LEADS [QRS DEFLECTION < 1.0 mV IN CHEST LEADS] No previous ECG available for comparison R MACHINE FEEDER Procedure Note Nina Figueroa MD - 03/24/2021 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: : 1950 Requested By: NINA NICKERSON Order Number: [id number] Reading MD: Nina Figueroa Measurements Intervals Lenora Rate: 62 P: 62 IN: 128 QRS: 43 QRSD: 90 T: 58 QT: 384 QTc: 391 Interpretive Statements SINUS RHYTHM LOW QRS VOLTAGE IN PRECORDIAL LEADS [QRS DEFLECTION < 1.0 mV IN CHESTLEADS] No previous ECG available for comparison R MACHINE FEEDER Nina Nickerson MD ECG ORDERABLES Final Result [facility] RAD documented in this encounter Visit Diagnoses Diagnosis Preop testing- Primary Preoperative examination, unspecified Preop testing Preoperative examination, unspecified documented in this encounter Care Teams Lime Hide Inspector Relationship Specialty Start Date End Date Jacob Castellano MD [address] [place] [id number] PCP - General INTERNAL MEDICINE 03/23/21 documented as of this encounter
--- OUTSIDE RECORDS SUMMARY | 2024-08-11 16:49 | XMS_ITS | Encounter Summary ---
Author Organization [facility] Address [address] [place] [address] Phone Care Team Providers Care Director Supplier Quality Name Role Phone Jacob Castellano MD Primary Care Provider [phone] Encounter Details Date Type Department Care Team (Late st Contact Info) Description 03/31/2019 Orders Only [facility] Scanning, Provider Social History Tobacco Use Types Packs/Day Years Used Date Smoking Tobacco: Never Comments Unknown Sex and Gender Information Value Date Recorded Sex Assigned at Not on file Legal Sex Female 3:51 AM MARINA MANAGER Gender Identity Female 12/29/2020 4:15 PM CDT Sexual Orientation Straight 06/19/2022 8: 32 PM MARINA MANAGER documented as of this encounter Plan of Treatment Not on file documented as of this encounter Procedures Procedure Name Priority Date/Time Associated Diagnosis Comments SCAN - RADIOLOGY/IMAGING 03/31/2019 documented in this encounter Results * SCAN - RADIOLOGY/IMAGING (03/31/2019) Anatomical Region Laterality Modality Other us Provider Scanning Final Result documented in this encounter Visit Diagnoses Not on filedocumented in this encounter Care Teams Director Supplier Quality Relationship Specialty Start Date End Date Jacob Castellano MD [address] [place] [address] PCP - General 03/20/17 documented as of this encounter
== END 2024-08-11 14:39 | disposition home or self-care (01) ==
LOC: CHSIMG 14:39
PROVIDERS: PCP Internal Medicine; Visit Provider Internal Medicine
DX: M25.552 Pain in left hip (principal); M25.551 Pain in right hip; M16.0 Bilateral primary osteoarthritis of hip
CPT/HCPCS: 73521

== ENCOUNTER 2024-10-03 14:00 | Outpatient (CLI) | payer MEDICARE, SELFPAY ==
--- NOTE | ~2024-10-03 | DEXA_ITS ---
Bone Density Report Name: MED CRANDALL Age: 74 Sex: Female Ethnicity: White Date of : 1950 Indication: osteopenia; monitoring treatment; height loss; Referring Provider: Jacob Castellano Study: Bone densitometry was performed. Exam Date: October 03, 2024 Accession number: [id number] Bone Density: Region BMD T-score Z-score Classification AP Spine(L1-L4) 1.169 1.1 3.4 Normal Femoral Neck (Left) 0.811 -0.3 1.6 Normal Total Hip (Left) 0.861 -0.7 1.0 Normal Femoral Neck (Right) 0.695 -1.4 0.6 Osteopenia Total Hip (Right) 0.825 -1.0 0.7 Normal Femoral Neck Mean 0.753 -0.9 1.1 Normal Total Hip Mean 0.843 -0.8 0.8 Normal World Health Organization criteria for BMD impression classify patients as: Normal (T-score at or above -1.0), Osteopenia (T-score between -1.0 and -2.5), or Osteoporosis (T-score at or below -2.5). 10-year Fracture Risk: FRAX not reported because: Treated for osteoporosis Previous Exams: Region Exam Age BMD T-score BMD Change BMD Change Date g/cm2 vs Baseline vs Previous AP Spine (L1-L4) 10/03/2024 74 1.169 1.1 0.050 (4.5%)* 0.054 (4.9%)* 05/10/2023 73 1.115 0.6 -0.004 (-0.4%) -0.004 (-0.4%) 04/18/2021 71 1.119 0.7 Total Hip(Left) 10/03/2024 74 0.861 -0.7 0.054 (6.7%)* 0.024 (2.9%) 05/10/2023 73 0.837 -0.9 0.030 (3.7%)* 0.030 (3.7%)* 04/18/2021 71 0.807 -1.1 Total Hip(Right) 10/03/2024 74 0.825 -1.0 0.049 (6.3%)* 0.048 (6.2%)* 05/10/2023 73 0.777 -1.4 0.000 (0.0%) 0.000 (0.0%) 04/18/2021 71 0.776 -1.4 *Denotes significance at 95% confidence level, LSC for AP Spine = 0.022 g/cm2, LSC for Total Hip = 0.027 g/cm2 Clinical Information Provided by Patient: Is being treated for osteoporosis Has used the following medications: Prolia (i.e. denosumab), Vitamin D, Calcium Patient maximum height was 67 Menopause Age: 60 Drinks caffeinated beverages Onset of menses at age 14 Number of children 3 Impression: The patient has low bone mass, based on the Right Femoral Neck T-score. No significant bone loss was observed. Discussion: PATIENT UNDER TREATMENT WITH NO SIGNIFICANT BMD LOSS SINCE LAST EXAM. In an untreated patient, BMD typically declines with age. A lack of decline or gain is usually a sign that treatment is efficacious and fracture risk is reduced. It is important to ask patients whether they are taking their medications and to encourage continued and appropriate compliance with their osteoporosis therapies to reduce fracture risk. It is also important to review their risk factors and encourage appropriate calcium and vitamin D intakes, exercise, fall prevention and other lifestyle measures. Follow-Up: Consider a repeat BMD and Vertebral Fracture Assessment (VFA) exam in 2 years or sooner if medically necessary, to reassess this patient's status. Reported by: SAMY on 10/03/2024 2:21:00 PM. Reviewed, dictated and finalized at location A.
--- OUTSIDE RECORDS SUMMARY | 2024-10-03 14:04 | XMS_ITS | Encounter Summary ---
Author Organization [facility] [facility] Address [address] [place] [address] Phone Care Team Providers Care Supervisor Calibration Name Role Phone Jacob Castellano MD Primary Care Provider + [phone] Encounter Details Date Type Department Care Team [...] on file Legal Sex Female 3:51 AM PLASTICATOR Gender Identity Female 12/29/2020 4:15 PM CDT Sexual Orientation Straight 06/19/2022 8: 32 PM PLASTICATOR documented as of this encounter Plan of Treatment Not on file documented as of this encounter Procedures Procedure Name Priority Date/Time Associated Diagnosis Comments SCAN - LABS 09/13/2022 documented in this encounter Results * SCAN - LABS (09/13/2022) us Provider Scanning Final Result documented in this encounter Visit Diagnoses Not on filedocumented in this encounter Care Teams Supervisor Calibration Relationship Specialty Start Date End Date Jacob Castellano MD [address] [place], [place] [id number] PCP - General 03/20/17 documented as of this encounter
--- OUTSIDE RECORDS SUMMARY | 2024-10-03 14:04 | XMS_ITS | Clinical Summary ---
Author Organization [facility] Address [address] [place] [address] Care Team Providers Care Metal Tank Erector Name Role Phone Jacob Castellano MD Primary Care Provider [phone] Allergies Active Allergy Reactions Criticality Noted Date Comments Iron Dextran Itching Low 03/14/2016 Sulfa (Sulfonamide Antibiotics) Hives High 11/04 Medications multivitamin tabletIndication s:Vitamin Deficiency Prevention daily. Active metFORMIN (GLUCOPHAGE) 500 mg tablet 2 (two) times a day with meals Active atorvastatin (LIPITOR) 10 mg tablet daily. Active Lactobacillus acidophilus 20 billion cell capsule unsure med dosage qd Active FLUAD 3794-0228, 65 YR UP,,PF, 45 mcg (15 mcg x 3)/0.5 mL syringe ADM 0.5ML IM UTD 0 8 Active calcitRIOL (ROCALTROL) 0.5 mcg capsule daily 2 tabs qd 0 Active latanoprost (XALATAN) 0.005 % ophthalmic solution INT 1 GTT IN OU HS [address] (PROTONIX) 40 mg EC tablet daily 0 Active zoledronic yjdd-hfrgxxlA-dh ter (RECLAST) 5 mg/100 mL piggyback Infuse [...] (04/26/2022): Added automatically from request for surgery [id number] Esophageal varices without bleeding 03/11/2020 Overview (03/11/2020): Added automatically from request for surgery [id number] Encounters Date Type Department Care Team Description 07/09/2024 Results Follow-Up [facility]astro[facility] [address] 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 [...] on file Legal Sex Female 3:51 AM PIT FURNACE OPERATOR Gender Identity Female 12/29/2020 4:15 PM CDT Sexual Orientation Straight 06/19/2022 8: 32 PM PIT FURNACE OPERATOR Obstetrics History Last Filed Vital Signs Vital Sign Reading Time Taken Comments Blood Pressure 136/79 01/10/2024 9:16 AM CDT Pulse 67 01/10/2024 9:16 AM CDT Temperature 36.3 C (97.3 F) 01/10/2024 9:16 AM CDT Respiratory Rate 16 06/26/2022 10:2 9 AM PIT FURNACE OPERATOR Oxygen Saturation 98% 01/11/2023 8:40 AM CDT Inhaled Oxygen Concentration - - Weight 79.7 kg (175 lb 12.8 oz) 01/10/2024 9:16 AM CDT Height 170.2 cm (5' 7) 01/10/2024 9:16 AM CDT Body Mass Index [...] 05/22/2017 Colon Cancer Screening-DNA Stool Discontinued 05/22/19 18 Colon Cancer Screening-FIT Discontinued 05/22/2017 Colon Cancer Screening-Sigmoidoscopy Discontinued 05/22/2017 Influenza Vaccine Completed 03/20/2024, , 03/23/2017, Additional history exists Procedures Procedure Name Priority Date/Time Associated Diagnosis Comments US ABDOMEN LIMITED Schedule Routine, Read Routine (OP Routine) 07/07/2024 8:17 AM PIT FURNACE OPERATOR 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 CH: REESE Report ID: [id number] Reading Location: [id number] Procedure Note Jarett Ordonez Jr., MD - [...] Jarett Ordonez M.D. CH: REESE Report ID: [id number] Reading Location: [id number] Holly Dwyer MD IMG US PROCEDURES Fi nal Result * COLONOSCOPY REPORT (05/22/2017) Anatomical Region Laterality Modality Other us Provider Scanning GI PROCEDURE ORDERABLES Final Result from Last 3 Months or Most Recently Relevant to Health Maintenance Insurance [facility] MEDICARE [facility] Address: [address] [address] [place] [address] [facility] Member Subscriber Plan / Payer (Ef fective 2022-Present) Name:Agnieszka Sultana Relation to Subscriber:Self Name:Agnieszka Sultana Payer ID:[id number] (NAIC) Type:AETNA MEDICARE Address: [facility] [id number] [place] [id number] A[employer] MEDICARE Member Subscriber Plan / Payer (Ef fective 2023-Present) Name:Agnieszka Sultana Relation to Subscriber:Self Name:Agnieszka Sultana Payer ID:[id number] (NAIC) Type:AENA MEDICARE Address: [facility] [id number] [place] [id number] Advance Directives For more information, please contact: [phone] * Full Code (Latest Code Status on File) Date Activated Date Inactivated Comments 06/26/2022 9:09 AM 06/26/2022 2:40 PM * Full Code Date Activated Date Inactivated Comments 04/27/2020 8:09 AM 04/27/2020 2:18 PM Care Teams Metal Tank Erector Relationship Specialty Start Date End Date Jacob Castellano MD [address] [place] [id number] PCP - General 03/20/17
--- OUTSIDE RECORDS SUMMARY | 2024-10-03 14:04 | XMS_ITS | Referral Summary ---
Author Organization [facility] Address [address] [place] [address] Care Team Providers Care Builder Beam Name Role Phone Jacob Castellano MD Primary Care Provider Encounters Date Type Department Care Team Description 07/09/2024 Results Follow-Up [facility] Gastroenterology [address] [facility] 12th [place] [address] [place] [address] Holly Dwyer MD US Abdomen Limited 07/07/2024 7:55 AM EVENT AV OPERATOR - 07/07/2024 11:59 PM EVENT AV OPERATOR Hospital Encounter [facility] Ultrasound [facility] [place] [address] 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 [...] capsule unsure med dosage qd Active FLUAD [id number], 65 YR UP,,PF, 45 mcg (15 mcg x 3)/0.5 mL syringe ADM 0.5ML IM UTD 0 8 Active calcitRIOL (ROCALTROL) 0.5 mcg capsule daily 2 tabs qd 0 Active latanoprost (XALATAN) 0.005 % ophthalmic solution INT 1 GTT IN OU HS [address] (PROTONIX) 40 mg EC tablet daily 0 Active zoledronic dzgz-jluhaukZ-uo ter (RECLAST) 5 mg/100 mL piggyback Infuse [...] (04/26/2022): Added automatically from request for surgery [id number] Esophageal varices without bleeding 03/11/2020 Overview (03/11/2020): Added automatically from request for surgery [id number] Immunizations Immunization Administration Dates Next Due Moderna [...] on file Legal Sex Female 3:51 AM EVENT AV OPERATOR Gender Identity Female 12/29/2020 4:15 PM CDT Sexual Orientation Straight 06/19/2022 8: 32 PM EVENT AV OPERATOR Last Filed Vital Signs Vital Sign Reading Time Taken Comments Blood Pressure 136/79 01/10/2024 9:16 AM CDT Pulse 67 01/10/2024 9:16 AM CDT Temperature 36.3 C (97.3 F) 01/10/2024 9:16 AM CDT Respiratory Rate 16 06/26/2022 10:2 9 AM EVENT AV OPERATOR Oxygen Saturation 98% 01/11/2023 8:40 AM [...] Read Routine (OP Routine) 07/07/2024 8:17 AM EVENT AV OPERATOR 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 CH: Report ID: [id number] Reading Location: [place] [address] Procedure Note Jarett Ordonez Jr., MD - [...] by Jarett Ordonez M.D. CH: Report ID: [id number] Reading Location: [place] [address] us Holly Dwyer MD IMG US PROCEDURES Fi nal Result * COLONOSCOPY REPORT (05/22/2017) Anatomical Region Laterality Modality Other us Provider Scanning GI PROCEDURE ORDERABLES Final Result from Last 3 Months or Most Recently Relevant to Health Maintenance Insurance [employer] MEDICARE [facility] Address: [facility] [address] [place] [address] [facility] MEDICARE [facility] MEDIC[facility] Advance Directives For more information, please contact: [phone] * Full Code (Latest Code Status on File) Date Activated Date Inactivated Comments 06/26/2022 9:09 AM 06/26/2022 2:40 PM * Full Code Date Activated Date Inactivated Comments 04/27/2020 8:09 AM 04/27/2020 2:18 PM Care Teams Builder Beam Relationship Specialty Start Date End Date Jacob Castellano MD [address] [place] [address] PCP - General 03/20/17
--- OUTSIDE RECORDS SUMMARY | 2024-10-03 14:04 | XMS_ITS | Encounter Summary ---
Author Organization [facility] Address [address] [place] [address] Phone Care Team Providers Care Tallow Refiner Name Role Phone Jacob Castellano MD Primary Care Provider [phone] Encounter Details Date Type Department Care Team [...] on file Legal Sex Female 3:51 AM GROUND OPERATIONS SUPERINTENDENT Gender Identity Female 12/29/2020 4:15 PM CDT Sexual Orientation Straight 06/19/2022 8: 32 PM GROUND OPERATIONS SUPERINTENDENT documented as of this encounter Plan of Treatment Not on file documented as of this encounter Procedures Procedure Name Priority Date/Time Associated Diagnosis Comments SCAN - LABS 03/12/2022 documented in this encounter Results * SCAN - LABS (03/12/2022) us Provider Scanning Final Result documented in this encounter Visit Diagnoses Not on filedocumented in this encounter Care Teams Tallow Refiner Relationship Specialty Start Date End Date Jacob Castellano MD [address] [place] [address] PCP - General 03/20/17 documented as of this encounter
--- OUTSIDE RECORDS SUMMARY | 2024-10-03 14:04 | XMS_ITS | Encounter Summary ---
Author Organization [facility] [employer] [facility] Address [address] [place] [address] Phone Care Team Providers Care Basket Machine Operator Name Role Phone Jacob Castellano MD Primary Care Provider + [phone] Encounter Details Date Type Department Care Team [...] on file Legal Sex Female 3:51 AM LICENSED PROFESSIONAL COUNSELOR Gender Identity Female 12/29/2020 4:15 PM CDT Sexual Orientation Straight 06/19/2022 8: 32 PM LICENSED PROFESSIONAL COUNSELOR documented as of this encounter Plan of Treatment Not on file documented as of this encounter Procedures Procedure Name Priority Date/Time Associated Diagnosis Comments SCAN - LABS 04/22/2024 documented in this encounter Results * SCAN - LABS (04/22/2024) us Provider Scanning Edited Result - Final documented in this encounter Visit Diagnoses Not on filedocumented in this encounter Care Teams Basket Machine Operator Relationship Specialty Start Date End Date Jacob Castellano MD [address] [place], [place] [id number] PCP - General 03/20/17 documented as of this encounter
--- OUTSIDE RECORDS SUMMARY | 2024-10-03 14:04 | XMS_ITS | Encounter Summary ---
Author Organization [facility] [facility] Address [address] [place] [address] Phone Care Team Providers Care Spindraw Operator Name Role Phone Jacob Castellano MD Primary Care Provider [phone] Encounter Details Date Type Department Care Team (Late st Contact Info) Description 03/31/2019 Orders Only [facility] Scanning, Provider Social History Tobacco Use Types Packs/Day Years Used Date Smoking Tobacco: Never Comments Unknown Sex and Gender Information Value Date Recorded Sex Assigned at Not on file Legal Sex Female 3:51 AM COIN MACHINE ASSEMBLER Gender Identity Female 12/29/2020 4:15 PM CDT Sexual Orientation Straight 06/19/2022 8: 32 PM COIN MACHINE ASSEMBLER documented as of this encounter Plan of Treatment Not on file documented as of this encounter Procedures Procedure Name Priority Date/Time Associated Diagnosis Comments SCAN - RADIOLOGY/IMAGING 03/31/2019 documented in this encounter Results * SCAN - RADIOLOGY/IMAGING (03/31/2019) Anatomical Region Laterality Modality Other us Provider Scanning Final Result documented in this encounter Visit Diagnoses Not on filedocumented in this encounter Care Teams Spindraw Operator Relationship Specialty Start Date End Date Jacob Castellano MD [address] [place] [address] PCP - General 03/20/17 documented as of this encounter
--- OUTSIDE RECORDS SUMMARY | 2024-10-03 14:04 | XMS_ITS | Clinical Summary ---
Author Organization [facility] Care Team Providers Care Charging Board Operator Name Role Phone Benny Fair MD Primary Care Provider [phone] Allergies Active Allergy Reactions Criticality Noted Date [...] 02/24/2010 06/09/2010 Pure hypercholesterolemia - Managed by [facility]: LDL <100 03/20/2006 10/13/2011 Social History Tobacco Use Types Packs/Day Years Used Date Smoking Tobacco: Never Smokeless Tobacco: Never Comments No Sex and Gender Information Value Date Recorded Sex Assigned at Not on file Legal Sex Female 3:54 AM BIOINFORMATICS DEVELOPER Gender Identity Not on file Sexual Orientation [...] 10:05 AM CDT Height 170.2 cm (5' 7) 11/21/2018 10:05 AM CDT Body Mass Index [...] Recently Relevant to Health Maintenance Care Teams Charging Board Operator Relationship Specialty [place] [address] [place] [address] PCP - General 08/08/09
--- OUTSIDE RECORDS SUMMARY | 2024-10-03 14:04 | XMS_ITS | Encounter Summary ---
Author Organization [facility]; [facility] Address [address] [place] [address] Phone Care Team Providers Care Electric Distribution Checker Name Role Phone Jacob Castellano MD Primary Care Provider [phone] Encounter Details Date Type Department Care Team (Late st Contact Info) Description 06/10/2019 Orders Only [facility] Scanning, Provider Social History Tobacco Use Types Packs/Day Years Used Date Smoking Tobacco: Never Comments Unknown Sex and Gender Information Value Date Recorded Sex Assigned at Not on file Legal Sex Female 3:51 AM COLLAR STAY FUSER TENDER Gender Identity Female 12/29/2020 4:15 PM CDT Sexual Orientation Straight 06/19/2022 8: 32 PM COLLAR STAY FUSER TENDER documented as of this encounter Plan of Treatment Not on file documented as of this encounter Procedures Procedure Name Priority Date/Time Associated Diagnosis Comments SCAN - LABS 06/10/2019 documented in this encounter Results * SCAN - LABS (06/10/2019) us Provider Scanning Final Result documented in this encounter Visit Diagnoses Not on filedocumented in this encounter Care Teams Electric Distribution Checker Relationship Specialty Start Date End Date Jacob Castellano MD [address] [place], [place] [id number] PCP - General 03/20/17 documented as of this encounter
== END 2024-10-03 14:01 | disposition home or self-care (01) ==
LOC: CHSIMG 14:01
PROVIDERS: PCP Internal Medicine; Visit Provider Internal Medicine
DX: Z78.0 Asymptomatic menopausal state (principal); M85.88 Other specified disorders of bone density and structure, other site
CPT/HCPCS: 77080

== ENCOUNTER 2024-10-21 07:49 | Outpatient (CLI) | payer MEDICARE, SELFPAY ==
--- OUTSIDE RECORDS SUMMARY | 2024-10-21 07:56 | XMS_ITS | Clinical Summary ---
Author Organization [facility] Address [address] [place] [address] Care Team Providers Care Coating Machine Feeder Name Role Phone Jacob Castellano MD Primary Care Provider [phone] Allergies Active Allergy Reactions Criticality Noted Date Comments Iron Dextran Itching Low 03/14/2016 Sulfa (Sulfonamide Antibiotics) Hives High 11/04 Medications multivitamin tabletIndication s:Vitamin Deficiency Prevention daily. Active metFORMIN (GLUCOPHAGE) 500 mg tablet 2 (two) times a day with meals Active atorvastatin (LIPITOR) 10 mg tablet daily. Active Lactobacillus acidophilus 20 billion cell capsule unsure med dosage qd Active FLUAD 7473-5811, 65 YR UP,,PF, 45 mcg (15 mcg x 3)/0.5 mL syringe ADM 0.5ML IM UTD 0 8 Active calcitRIOL (ROCALTROL) 0.5 mcg capsule daily 2 tabs qd 0 Active latanoprost (XALATAN) 0.005 % ophthalmic solution INT 1 GTT IN OU HS [address] (PROTONIX) 40 mg EC tablet daily 0 Active zoledronic ohea-suldkgaT-fw ter (RECLAST) 5 mg/100 mL piggyback Infuse [...] (04/26/2022): Added automatically from request for surgery [id number] Esophageal varices without bleeding 03/11/2020 Overview (03/11/2020): Added automatically from request for surgery [id number] Immunizations Immunization Administration Dates Next Due Moderna [...] on file Legal Sex Female 3:51 AM PUBLISHING MANAGER Gender Identity Female 12/29/2020 4:15 PM CDT Sexual Orientation Straight 06/19/2022 8: 32 PM PUBLISHING MANAGER Obstetrics History Last Filed Vital Signs Vital Sign Reading Time Taken Comments Blood Pressure 136/79 01/10/2024 9:16 AM CDT Pulse 67 01/10/2024 9:16 AM CDT Temperature 36.3 C (97.3 F) 01/10/2024 9:16 AM CDT Respiratory Rate 16 06/26/2022 10:2 9 AM PUBLISHING MANAGER Oxygen Saturation 98% 01/11/2023 8:40 AM CDT [...] Procedure Name Priority Date/Time Associated Diagnosis Comments COLONOSCOPY REPORT 05/22/2017 from Last 3 Months or Most Recently Relevant to Health Maintenance Results * COLONOSCOPY REPORT (05/22/2017) Anatomical Region Laterality Modality Other Provider Scanning GI PROCEDURE ORDERABLES Final Result from Last 3 Months or Most Recently Relevant to Health Maintenance Insurance [facility] MEDICARE ADVANTAGE [facility] MEDICARE AETNA MEDICARE Advance Directives For more information, please contact: [phone] * Full Code (Latest Code Status on File) Date Activated Date Inactivated Comments 06/26/2022 9:09 AM 06/26/2022 2:40 PM * Full Code Date Activated Date Inactivated Comments 04/27/2020 8:09 AM 04/27/2020 2:18 PM Care Teams Coating Machine Feeder Relationship Specialty Start Date End Date Jacob Castellano MD [address] [place], [place] [id number] PCP - General 03/20/17
--- OUTSIDE RECORDS SUMMARY | 2024-10-21 07:56 | XMS_ITS | Encounter Summary ---
Author Organization [facility] [employer] [facility] Address [address] [place] [address] Phone Care Team Providers Care Boiler Plant Operator Name Role Phone Jacob Castellano MD Primary Care Provider + [phone] Encounter Details Date Type Department Care Team [...] on file Legal Sex Female 3:51 AM BOX BENDER Gender Identity Female 12/29/2020 4:15 PM CDT Sexual Orientation Straight 06/19/2022 8: 32 PM BOX BENDER documented as of this encounter Plan of Treatment Not on file documented as of this encounter Procedures Procedure Name Priority Date/Time Associated Diagnosis Comments SCAN - LABS 09/13/2022 documented in this encounter Results * SCAN - LABS (09/13/2022) us Provider Scanning Final Result documented in this encounter Visit Diagnoses Not on filedocumented in this encounter Care Teams Boiler Plant Operator Relationship Specialty Start Date End Date Jacob Castellano MD [address] [place], [place] [id number] PCP - General 03/20/17 documented as of this encounter
--- OUTSIDE RECORDS SUMMARY | 2024-10-21 07:56 | XMS_ITS | Encounter Summary ---
Author Organization [facility] [employer] [facility] Address [address] [place] [address] Phone Care Team Providers Care Consumer Electronic Retail Specialist Name Role Phone Jacob Castellano MD Primary Care Provider [phone] Encounter Details Date Type Department Care Team [...] on file Legal Sex Female 3:51 AM RESIDENCY COORDINATOR Gender Identity Female 12/29/2020 4:15 PM CDT Sexual Orientation Straight 06/19/2022 8: 32 PM RESIDENCY COORDINATOR documented as of this encounter Plan of Treatment Not on file documented as of this encounter Procedures Procedure Name Priority Date/Time Associated Diagnosis Comments SCAN - LABS 03/12/2022 documented in this encounter Results * SCAN - LABS (03/12/2022) us Provider Scanning Final Result documented in this encounter Visit Diagnoses Not on filedocumented in this encounter Care Teams Consumer Electronic Retail Specialist Relationship Specialty Start Date End Date Jacob Castellano MD [address] [place] [address] PCP - General 03/20/17 documented as of this encounter
--- OUTSIDE RECORDS SUMMARY | 2024-10-21 07:56 | XMS_ITS | Clinical Summary ---
Author Organization [facility] Care Team Providers Care Spinner Tender Name Role Phone Benny Fair MD Primary Care Provider [phone] Allergies Active Allergy Reactions Criticality Noted Date [...] 02/24/2010 06/09/2010 Pure hypercholesterolemia - Managed by [facility]: LDL <100 03/20/2006 10/13/2011 Social History Tobacco Use Types Packs/Day Years Used Date Smoking Tobacco: Never Smokeless Tobacco: Never Comments No Sex and Gender Information Value Date Recorded Sex Assigned at Not on file Legal Sex Female 3:54 AM SCRAP SEPARATOR Gender Identity Not on file Sexual Orientation [...] Recently Relevant to Health Maintenance Care Teams Spinner Tender Relationship Specialty [place] [address] [place] [address] PCP - General 08/08/09
--- OUTSIDE RECORDS SUMMARY | 2024-10-21 07:56 | XMS_ITS | Encounter Summary ---
Author Organization [facility] Address [address] [place] [address] Phone Care Team Providers Care Senior Quality Analyst Name Role Phone Jacob Castellano MD Primary Care Provider [phone] Encounter Details Date Type Department Care Team (Late st Contact Info) Description 06/10/2019 Orders Only [facility] Scanning, Provider Social History Tobacco Use Types Packs/Day Years Used Date Smoking Tobacco: Never Comments Unknown Sex and Gender Information Value Date Recorded Sex Assigned at Not on file Legal Sex Female 3:[address]ACHINERY INSPECTOR Gender Identity Female 12/29/2020 4:15 PM CDT Sexual Orientation Straight 06/19/2022 8: [address] MACHINERY INSPECTOR documented as of this encounter Plan of Treatment Not on file documented as of this encounter Procedures Procedure Name Priority Date/Time Associated Diagnosis Comments SCAN - LABS 06/10/2019 documented in this encounter Results * SCAN - LABS (06/10/2019) us Provider Scanning Final Result documented in this encounter Visit Diagnoses Not on filedocumented in this encounter Care Teams Senior Quality Analyst Relationship Specialty Start Date End Date Jacob Castellano MD [address] [place], [place] [id number] PCP - General 03/20/17 documented as of this encounter
--- OUTSIDE RECORDS SUMMARY | 2024-10-21 07:56 | XMS_ITS | Referral Summary ---
Author Organization [facility] Address [address] [place] [address] Care Team Providers Care Ux Specialist Name Role Phone Jacob Castellano MD Primary Care Provider [phone] Allergies Active Allergy Reactions Criticality Noted Date Comments Iron Dextran Itching Low 03/14/2016 Sulfa (Sulfonamide Antibiotics) Hives High 11/04 Medications multivitamin tabletIndication s:Vitamin Deficiency Prevention daily. Active metFORMIN (GLUCOPHAGE) 500 mg tablet 2 (two) times a day with meals Active atorvastatin (LIPITOR) 10 mg tablet daily. Active Lactobacillus acidophilus 20 billion cell capsule unsure med dosage qd Active FLUAD 1854-7939, 65 YR UP,,PF, 45 mcg (15 mcg x 3)/0.5 mL syringe ADM 0.5ML IM UTD 0 8 Active calcitRIOL (ROCALTROL) 0.5 mcg capsule daily 2 tabs qd 0 Active latanoprost (XALATAN) 0.005 % ophthalmic solution INT 1 GTT IN OU HS [address] (PROTONIX) 40 mg EC tablet daily 0 Active zoledronic ahan-srkmpqgD-yz ter (RECLAST) 5 mg/100 mL piggyback Infuse [...] (04/26/2022): Added automatically from request for surgery [id number] Esophageal varices without bleeding 03/11/2020 Overview (03/11/2020): Added automatically from request for surgery [id number] Immunizations Immunization Administration Dates Next Due Moderna [...] on file Legal Sex Female 3:51 AM ASSISTANT MANAGER PT Gender Identity Female 12/29/2020 4:15 PM CDT Sexual Orientation Straight 06/19/2022 8: 32 PM ASSISTANT MANAGER PT Last Filed Vital Signs Vital Sign Reading Time Taken Comments Blood Pressure 136/79 01/10/2024 9:16 AM CDT Pulse 67 01/10/2024 9:16 AM CDT Temperature 36.3 C (97.3 F) 01/10/2024 9:16 AM CDT Respiratory Rate 16 06/26/2022 10:2 9 AM ASSISTANT MANAGER PT Oxygen Saturation 98% 01/11/2023 8:40 AM CDT [...] to Health Maintenance Insurance [employer] MEDICARE ADVANTAGE [employer] MEDICARE AETNA MEDICARE Advance Directives For more information, please contact: [phone] * Full Code (Latest Code Status on File) Date Activated Date Inactivated Comments 06/26/2022 9:09 AM 06/26/2022 2:40 PM * Full Code Date Activated Date Inactivated Comments 04/27/2020 8:09 AM 04/27/2020 2:18 PM Care Teams Ux Specialist Relationship Specialty Start Date End Date Jacob Castellano MD [address] [place] [address] PCP - General 03/20/17
--- OUTSIDE RECORDS SUMMARY | 2024-10-21 07:56 | XMS_ITS | Encounter Summary ---
Author Organization [facility] [employer] [facility] Address [address] [place] [address] Phone Care Team Providers Care Infant Lead Teacher Name Role Phone Jacob Castellano MD Primary Care Provider + [phone] Encounter Details Date Type Department Care Team [...] on file Legal Sex Female 3:51 AM CUFF CUTTER Gender Identity Female 12/29/2020 4:15 PM CDT Sexual Orientation Straight 06/19/2022 8: 32 PM CUFF CUTTER documented as of this encounter Plan of Treatment Not on file documented as of this encounter Procedures Procedure Name Priority Date/Time Associated Diagnosis Comments SCAN - LABS 04/22/2024 documented in this encounter Results * SCAN - LABS (04/22/2024) us Provider Scanning Edited Result - Final documented in this encounter Visit Diagnoses Not on filedocumented in this encounter Care Teams Infant Lead Teacher Relationship Specialty Start Date End Date Jacob Castellano MD [address] [place], [place] [id number] PCP - General 03/20/17 documented as of this encounter
--- OUTSIDE RECORDS SUMMARY | 2024-10-21 07:56 | XMS_ITS | Encounter Summary ---
Author Organization [facility] [employer] [facility] Address [address] [place] [address] Phone Care Team Providers Care Market Consultant Name Role Phone Jacob Castellano MD Primary Care Provider [phone] Encounter Details Date Type Department Care Team (Late st Contact Info) Description 03/31/2019 Orders Only [facility] Scanning, Provider Social History Tobacco Use Types Packs/Day Years Used Date Smoking Tobacco: Never Comments Unknown Sex and Gender Information Value Date Recorded Sex Assigned at Not on file Legal Sex Female 3:51 AM RELIEF COOK Gender Identity Female 12/29/2020 4:15 PM CDT Sexual Orientation Straight 06/19/2022 8: 32 PM RELIEF COOK documented as of this encounter Plan of Treatment Not on file documented as of this encounter Procedures Procedure Name Priority Date/Time Associated Diagnosis Comments SCAN - RADIOLOGY/IMAGING 03/31/2019 documented in this encounter Results * SCAN - RADIOLOGY/IMAGING (03/31/2019) Anatomical Region Laterality Modality Other us Provider Scanning Final Result documented in this encounter Visit Diagnoses Not on filedocumented in this encounter Care Teams Market Consultant Relationship Specialty Start Date End Date Jacob Castellano MD [address] [place] [address] PCP - General 03/20/17 documented as of this encounter
[2024-10-21 08:07] LABS: Add Urine Microscopic? YES; Appearance Urine Clear (Clear); Bilirubin Urine Negative (Negative); Blood Urine Negative (Negative); Color Urine Light Yellow (Yellow); Glucose Urine UA Negative (Negative); Hematocrit 38.7 % (35.0-42.0); Hemoglobin 12.8 g/dL (11.7-13.8); Ketones Urine Negative (Negative); Leukocyte Esterase Ur 2+ (Negative); Mean Corpuscular HGB Conc 33.1 g/dL (32-36); Mean Corpuscular Hemoglobin 30.2 pg (27.0-31.0); Mean Corpuscular Volume 91.3 fL (78.0-102.0); Mean Platelet Volume 9.4 fl (9.2-11.8); Nitrate Urine Positive (Negative); Platelet Count Result 164 K/mm3 (150-420); Protein Urine Negative (Negative); Red Blood Count 4.24 M/mm3 (4.20-5.40); Red Cell Distribution Width 14.2 % (11.6-14.4); White Blood Count 3.7 K/mm3 (4.8-10.8)
[2024-10-21 08:10] LABS: Bacteria Urine 1+ /hpf; RBC Urine None seen /hpf (0-2); Squamous Epithelial Cell Urine Moderate /hpf (Few); WBC Urine 0-5 /hpf (0-3)
[2024-10-21 08:20] LABS: INR 0.9; Partial Thromboplastin Time 24.2 Sec (23.9-30.70); Prothrombin Time 10.5 Seconds (9.50-12.1)
[2024-10-21 08:47] LABS: Alanine Aminotransferase 25 U/L (6-35); Albumin Level 3.9 g/dL (3.5-5.1); Alkaline Phosphatase 98 U/L (38-126); Anion Gap 3 mmol/L (4-12); Aspartate Amino Transferase 49 U/L (14-36); Bilirubin,Total 0.8 mg/dL (0.2-1.3); Blood Urea Nitrogen 14 mg/dL (7-17); Calcium 9.3 mg/dL (8.4-10.2); Carbon Dioxide 27 mmol/L (22-30); Chloride 107 mmol/L (98-107); Cholesterol 209 mg/dL (0-200); Creatine Kinase 82 U/L (30-135); Estimated Glomerular Filt Rate > 60; Glucose 105 mg/dL (65-110); HDL Direct 87 mg/dL; LDL Cholesterol Calculated 96 mg/dL (<130); Osmolality Calculated 284 mOsm/kg (285-295); Potassium 4.3 mmol/L (3.4-5.0); Sodium 137 mmol/L (137-145); Total Protein 6.4 g/dL (6.3-8.2); Triglycerides 131 mg/dL (<150)
[2024-10-21 09:04] LABS: Free T3 3.94 pg/mL (2.18-3.98); Free T4 Free Thyroxine 1.53 ng/dL (0.78-2.19); Vitamin D 25 Hydroxy 26.1 ng/mL
[2024-10-21 13:58] LABS: Hemoglobin A1C 5.8 % (<5.7)
== END 2024-10-21 07:50 | disposition home or self-care (01) ==
LOC: CHSLAB 07:52
PROVIDERS: PCP Internal Medicine; Visit Provider Internal Medicine
DX: E78.2 Mixed hyperlipidemia (principal); I10 Essential (primary) hypertension; E11.9 Type 2 diabetes mellitus without complications; R53.82 Chronic fatigue, unspecified; K74.60 Unspecified cirrhosis of liver; M81.0 Age-related osteoporosis without current pathological fracture
CPT/HCPCS: 36415; 80053; 80061; 81001; 82306; 82550; 83036; 84439; 84443; 84481; 85027; 85610; 85730

== ENCOUNTER 2024-11-11 11:08 | Outpatient (CLI) | payer MEDICARE, SELFPAY ==
--- OUTSIDE RECORDS SUMMARY | 2024-11-11 11:12 | XMS_ITS | Clinical Summary ---
Author Organization [facility] Address [facility] [place] [address] Care Team Providers Care Mower Operator Name Role Phone Jacob Castellano MD Primary Care Provider [phone] Allergies Active Allergy Reactions Criticality Noted Date [...] of distal end of left radius Immunizations Immunization Administration Dates Next Due MODERNA COVID-19 (12+) [...] on file Legal Sex Female 7:45 AM RENAL TECHNICIAN Gender Identity Not on file Sexual Orientation Not on file Last Filed Vital Signs Vital Sign Reading Time Taken Comments Blood Pressure 171/65 04/06/2022 4:00 PM RENAL TECHNICIAN Pulse 57 04/06/2022 4:00 PM RENAL TECHNICIAN Temperature 36.1 C (97 F) 04/06/2022 2:37 PM RENAL TECHNICIAN Respiratory Rate 20 04/06/2022 4:00 PM RENAL TECHNICIAN Oxygen Saturation 100% 04/06/2022 4:00 PM RENAL TECHNICIAN Inhaled Oxygen Concentration - - Weight 77.6 kg (171 lb) 04/06/2022 11:38 AM RENAL TECHNICIAN Height 170.2 cm (5' 7) 04/06/2022 11:38 AM RENAL TECHNICIAN Body Mass Index 26.78 04/06/2022 11:38 AM RENAL TECHNICIAN Plan of Treatment Health Maintenance Due Date Last Done Comments Colorectal Cancer Screening Colonoscopy (10 Years) 1950 Hepatitis C 01/17/1970 DTaP, Tdap and Td Vaccines ( 1 - Tdap) 01/17/1971 Mammogram Screening 1992 Pneumococcal Vaccine: 50+ Years (1 of 1 - PCV) 01/17/2002 Zoster Vaccines (1 of 2) 01/17/2002 Annual Medicare Wellness Visit 01/17/2017 Dexa Scan (General) 01/17/2017 COVID-19 Vaccine (4 - 2023-2 5 season) 2024 03/04/2021, 07/16/2020, 06/19/2020 RSV [...] this topic Medical Devices Implanted Type Area Oracle Reports Developer Device Identifier Shelf Expiration Date Model / Serial / Lot 2.4 Mm Va-Lcp Two-Column Volar Distal Radius Plate Implanted:Qty: 1 on 03/24/2021 by Daniel Nickerson MD at [facility] Plate Right: Wrist SYNTHES 630 / / Description: 2.4 Mm Coretx Screw, Self Tapping, With T8 Stardrive Recess, 14mm Implanted:Qty: 2 on 03/24/2021 by Daniel Nickerson MD at [facility] Screw Right: Wrist SYNTHES 764 / / Description:764 2.4 Mm Variable Angle Locking Screws, With T8 Stardrive Recess, 20mm Implanted:Qty: 1 on 03/24/2021 by Daniel Nickerson MD at [facility] Screw Right: Wrist SYNTHES 120 / / Description:120 2.4 Mm Variable Angle Locking Screws, With T8 Stardrive Recess, 18mm Implanted:Qty: 2 on 03/24/2021 by Daniel Nickerson MD at [facility] Screw Right: Wrist SYNTHES 118 / / Description: 2.4 Mm Cortex Screw, Self-Tapping, With T8 Stardrive Recess, 12mm Implanted:Qty: 1 on 03/24/2021 by Daniel Nickerson MD at [facility] Screw Right: Wrist SYNTHES 762 / / Description:76 2.4 Mm Variable Angle Locking Screws, With T8 Star [address] Recess, 16mm Implanted:Qty: 1 on 03/24/2021 by Daniel Nickerson MD at [facility] Screw Right: Wrist SYNTHES 116 / / Description:116 2.4mm Variable Angle Locking Screws, With T8 Stardrive Recess Implanted:Qty: 1 on 04/06/2022 by Daniel Nickerson MD at [facility] Left: Wrist SYNTHES 116 / / 2.4mm Variable Angle Locking Screws, With T8 Stardrive Recess Implanted:Qty: 2 on 04/06/2022 by Daniel Nickerson MD at [facility] Left: Wrist SYNTHES 118 / / 2.4mm Variable Angle Locking Screws, With T8 Stardrive Recess Implanted:Qty: 1 on 04/06/2022 by Daniel Nickerson MD at [facility] Left: Wrist SYNTHES 02.210.120 / / 2.4mm Cortex Screw, Self-Tapping, With T8 Stardrive Recess Implanted:Qty: 1 on 04/06/2022 by Daniel Nickerson MD at [facility] Left: Wrist SYNTHES 201.762 / / 2.4mm Cortex Screw, Self-Tapping, With T8 Stardrive Recess Implanted:Qty: 2 on 04/06/2022 by Daniel Nickerson MD at [facility] Left: Wrist SYNTHES 201.764 / / 2.4mm Va-Lcp Two-Column Volar Distal Radius Plates Implanted:Qty: 1 on 04/06/2022 by Daniel Nickerson MD at [facility] Left: Wrist SYNTHES 02.111.631 / / Explanted Type Area Oracle Reports Developer Device Identifier Shelf Expiration Date Model / Serial / Lot Drill Bit, 1.8mm With Depth Kevin, Quick Coupling, 110 Mm Explanted:Qty: 1 on 03/24/2021 by Daniel Nickerson MD at [facility] Right: Wrist SYNTHES 310.509 / / Description:310.509 Plate Reduction Wire, 1.25 Plate Reduction Wire, Small Stop Explanted:Qty: 2 on 03/24/2021 by Daniel Nickerson MD at [facility] Right: Wrist SYNTHES .500. 10 / / Description:.500.10 Insurance [facility] MEDICARE Care Teams Mower Operator Relationship Specialty Start Date End Date Jacob Castellano MD [address] [place] [id number] PCP - General INTERNAL MEDICINE 03/23/21
--- OUTSIDE RECORDS SUMMARY | 2024-11-11 11:12 | XMS_ITS | Clinical Summary ---
Author Organization [facility] Address [address] [place] [address] Care Team Providers Care Sleeve Wheel Maker Name Role Phone Jacob Castellano MD Primary Care Provider [phone] Allergies Active Allergy Reactions Criticality Noted Date Comments Iron Dextran Itching Low 03/14/2016 Sulfa (Sulfonamide Antibiotics) Hives High 11/04 Medications multivitamin tabletIndication s:Vitamin Deficiency Prevention daily. Active metFORMIN (GLUCOPHAGE) 500 mg tablet 2 (two) times a day with meals Active atorvastatin (LIPITOR) 10 mg tablet daily. Active Lactobacillus acidophilus 20 billion cell capsule unsure med dosage qd Active FLUAD 2735-7285, 65 YR UP,,PF, 45 mcg (15 mcg x 3)/0.5 mL syringe ADM 0.5ML IM UTD 0 8 Active calcitRIOL (ROCALTROL) 0.5 mcg capsule daily 2 tabs qd 0 Active latanoprost (XALATAN) 0.005 % ophthalmic solution INT 1 GTT IN OU HS [address] (PROTONIX) 40 mg EC tablet daily 0 Active zoledronic lqpv-vabfhfpG-vn ter (RECLAST) 5 mg/100 mL piggyback Infuse [...] (04/26/2022): Added automatically from request for surgery [id number] Esophageal varices without bleeding 03/11/2020 Overview (03/11/2020): Added automatically from request for surgery [id number] Immunizations Immunization Administration Dates Next Due Moderna [...] on file Legal Sex Female 3:51 AM CELLULAR PHONE REPAIRER Gender Identity Female 12/29/2020 4:15 PM CDT Sexual Orientation Straight 06/19/2022 8: 32 PM CELLULAR PHONE REPAIRER Obstetrics History Last Filed Vital Signs Vital Sign Reading Time Taken Comments Blood Pressure 136/79 01/10/2024 9:16 AM CDT Pulse 67 01/10/2024 9:16 AM CDT Temperature 36.3 C (97.3 F) 01/10/2024 9:16 AM CDT Respiratory Rate 16 06/26/2022 10:2 9 AM CELLULAR PHONE REPAIRER Oxygen Saturation 98% 01/11/2023 8:40 AM CDT [...] 2023-2 5 season) 2024 03/04/2021, 07/16/2020, 06/19/2020 Influenza Vaccine (#1) 2025 , 03/20/2018, 03/23/2017, Additional history exists Colon Cancer Screening-Colonoscopy 05/22/2027 05/22/2017 Hepatitis C Screening Completed 04/24/2013 Pneumococcal vaccine 65+ Completed 03/23/2017, 01/06 Colon Cancer Screening-CT Colonography Discontinued 05/22/2017 Colon Cancer Screening-DNA Stool Discontinued 05/22/19 18 Colon Cancer Screening-FIT Discontinued 05/22/2017 Colon Cancer Screening-Sigmoidoscopy Discontinued 05/22/2017 Procedures Procedure Name Priority Date/Time Associated Diagnosis Comments COLONOSCOPY REPORT 05/22/2017 from Last 3 Months or Most Recently Relevant to Health Maintenance Results * COLONOSCOPY REPORT (05/22/2017) Anatomical Region Laterality Modality Other Provider Scanning GI PROCEDURE ORDERABLES Final Result from Last 3 Months or Most Recently Relevant to Health Maintenance Insurance UHC MEDICARE ADVANTAGE [facility] Address: [address] [address] [place] [address] [facility] MEDICARE AETNA MEDICARE Advance Directives For more information, please contact: [phone] * Full Code (Latest Code Status on File) Date Activated Date Inactivated Comments 06/26/2022 9:09 AM 06/26/2022 2:40 PM * Full Code Date Activated Date Inactivated Comments 04/27/2020 8:09 AM 04/27/2020 2:18 PM Care Teams Sleeve Wheel Maker Relationship Specialty Start Date End Date Jacob Castellano MD [address] [place] [address] PCP - General 03/20/17
--- OUTSIDE RECORDS SUMMARY | 2024-11-11 11:12 | XMS_ITS | Encounter Summary ---
Author Organization [facility] - [facility] Address [address] [place] [address] Care Team Providers Care Conventions Assistant Name Role Phone Jacob Castellano MD Primary Care Provider [phone] Encounter Details Date Type Department Care Team (Late st Contact Info) Description 04/04/2022 Prep for Procedure [facility] [address] [place], [place] [id number] Daniel Nickerson MD [address] [place] [address], [facility] [address] [place], [place] [id number] Social History Tobacco Use Types Packs/Day Years Used Date Smoking Tobacco: Never Alcohol Use Standard Drinks/Week Comments Yes 0 (1 standard drink = 0.6 oz pur e alcohol) 4-5xweek wisky and wine Comments No Sex and Gender Information Value Date Recorded Sex Assigned at Not on file Legal Sex Female 7:45 AM FIELD MERCHANDISER Gender Identity Not on file Sexual Orientation Not on file COVID-19 Exposure Response Date Recorded In the last 10 days, have yo u been in contact with someone who was confirmed or suspected to have Coronavirus/COVID-19? No / Unsure 04/06/2022 11:13 AM FIELD MERCHANDISER documented as of this encounter Plan of Treatment Not on file documented as of this encounter Visit Diagnoses Not on filedocumented in this encounter Care Teams Conventions Assistant Relationship Specialty Start Date End Date Jacob Castellano MD [address] [place] [address] PCP - General INTERNAL MEDICINE 03/23/21 documented as of this encounter
--- OUTSIDE RECORDS SUMMARY | 2024-11-11 11:12 | XMS_ITS | Encounter Summary ---
Author Organization [facility] Address [address] [place] [address] Phone Care Team Providers Care Bag Machine Helper Name Role Phone Jacob Castellano MD Primary Care Provider [phone] Encounter Details Date Type Department Care Team (Late st Contact Info) Description 03/31/2019 Orders Only [facility] Scanning, Provider Social History Tobacco Use Types Packs/Day Years Used Date Smoking Tobacco: Never Comments Unknown Sex and Gender Information Value Date Recorded Sex Assigned at Not on file Legal Sex Female 3:51 AM SURGICAL PATHOLOGIST Gender Identity Female 12/29/2020 4:15 PM CDT Sexual Orientation Straight 06/19/2022 8: 32 PM SURGICAL PATHOLOGIST documented as of this encounter Plan of Treatment Not on file documented as of this encounter Procedures Procedure Name Priority Date/Time Associated Diagnosis Comments SCAN - RADIOLOGY/IMAGING 03/31/2019 documented in this encounter Results * SCAN - RADIOLOGY/IMAGING (03/31/2019) Anatomical Region Laterality Modality Other us Provider Scanning Final Result documented in this encounter Visit Diagnoses Not on filedocumented in this encounter Care Teams Bag Machine Helper Relationship Specialty Start Date End Date Jacob Castellano MD [address] [place] [address] PCP - General 03/20/17 documented as of this encounter
--- OUTSIDE RECORDS SUMMARY | 2024-11-11 11:12 | XMS_ITS | Encounter Summary ---
Author Organization [facility] [employer] [facility] Address [address] [place] [address] Phone Care Team Providers Care Frame Builder Name Role Phone Jacob Castellano MD Primary Care Provider [phone] Encounter Details Date Type Department Care Team [...] on file Legal Sex Female 3:51 AM IRONING PLEATER Gender Identity Female 12/29/2020 4:15 PM CDT Sexual Orientation Straight 06/19/2022 8: 32 PM IRONING PLEATER documented as of this encounter Plan of Treatment Not on file documented as of this encounter Procedures Procedure Name Priority Date/Time Associated Diagnosis Comments SCAN - LABS 04/22/2024 documented in this encounter Results * SCAN - LABS (04/22/2024) us Provider Scanning Edited Result - Final documented in this encounter Visit Diagnoses Not on filedocumented in this encounter Care Teams Frame Builder Relationship Specialty Start Date End Date Jacob Castellano MD [address] [place], [place] [id number] PCP - General 03/20/17 documented as of this encounter
--- OUTSIDE RECORDS SUMMARY | 2024-11-11 11:12 | XMS_ITS | Encounter Summary ---
Author Organization [facility] Address [address] [place] [address] Care Team Providers Care Natural Fabricator Name Role Phone Jacob Castellano MD Primary Care Provider [phone] Encounter Details Date Type Department Care Team (Late st Contact Info) Description 03/23/2021 Prep for Procedure [facility] Day [facility] [address] [place], [place] [id number] Nina Nickerson MD [address] [place] [address], [facility] [address] [place], [place] [id number] Social History Tobacco Use Types Packs/Day Years Used Date Smoking Tobacco: Never Smokeless Tobacco: Current Snuff Alcohol Use Standard Drinks/Week Comments Yes 0 (1 standard drink = 0.6 oz pur e alcohol) 1 drink a day Comments Unknown Sex and Gender Information Value Date Recorded Sex Assigned at Not on file Legal Sex Female 7:45 AM ADVISOR TO COMMAND IN COMBAT Gender Identity Not on file Sexual Orientation Not on file COVID-19 Exposure Response Date Recorded In the last month, have you been in contact with someone who was confirmed or suspected to have Coronavirus / COVID-19? No / Unsure 03/23/2021 1:03 PM ADVISOR TO COMMAND IN COMBAT documented as of this encounter Functional Status * Calculated C-SSRS Risk Score (Lifetime/Recent) Answer Date of Assessment Author Status No Risk Indicated 03/24/2021 9:05 AM Luanne Dejesus RN Active * Garrett Suicide Severity Rating Scale (Screener/Recent Self-Report) Question Answer Date of Assessment Author Status 1. Wish to be (Past 1 Month) No 03/24/2021 9:05 AM Luanne Dejesus, RN Active 2. Non-Specific Active Suicidal Thoughts (Past 1 Month) No 03/24/2021 9:05 AM ADVISOR TO COMMAND IN COMBAT Luanne Navarro RN Active 6. Suicidal Behavior (Lifetime) No 03/24/2021 9:05 AM ADVISOR TO COMMAND IN COMBAT Luanne Navarro RN Activ e documented as of this encounter Plan of Treatment Not on file documented as of this encounter Results * ECG 12-Lead (03/23/2021 1:19 PM ADVISOR TO COMMAND IN COMBAT) 03/23/2021 1:19 PM ADVISOR TO COMMAND IN COMBAT Narrative [facility] RAD - 03/24/2021 6:34 PM ADVISOR TO COMMAND IN COMBAT [facility] Test Date: 2021-03-23 Pat Name: AGNIESZKA CRANDALL Department: Room: Gender: Female Labview Programmer: : 1950 Requested By: NINA NICKERSON Order Number: [id number] Reading MD: Nina Figueroa Measurements Intervals [place] Rate: 62 P: 62 DE: 128 QRS: 43 QRSD: 90 T: 58 QT: 384 QTc: 391 Interpretive Statements SINUS RHYTHM LOW QRS VOLTAGE IN PRECORDIAL LEADS [QRS DEFLECTION < 1.0 mV IN CHEST LEADS] No previous ECG available for comparison SOR TO COMMAND IN COMBAT Procedure Note Nina Figueroa MD - 03/24/2021 [facility] Test Date: 2021-03-23 Pat Name: AGNIESZKA CRANDALL Department: Room: Gender: Female Labview Programmer: : 1950 Requested By: NINA NICKEROSN Order Number: [id number] Nelly GIVENS: Nina Figueroa Measurements Intervals [place] Rate: 62 P: 62 DE: 128 QRS: 43 QRSD: 90 T: 58 QT: 384 QTc: 391 Interpretive Statements SINUS RHYTHM LOW QRS VOLTAGE IN PRECORDIAL LEADS [QRS DEFLECTION < 1.0 mV IN CHESTLEADS] No previous ECG available for comparison SOR TO COMMAND IN COMBAT us Nina Nickerson MD ECG ORDERABLES Final Result [facility] RAD documented in this encounter Visit Diagnoses Diagnosis Preop testing- Primary Preoperative examination, unspecified Preop testing Preoperative examination, unspecified documented in this encounter Care Teams Natural Fabricator Relationship Specialty Start Date End Date Jacob Castellano MD [address] [place] [address] PCP - General INTERNAL MEDICINE 03/23/21 documented as of this encounter
--- OUTSIDE RECORDS SUMMARY | 2024-11-11 11:12 | XMS_ITS | Clinical Summary ---
Author Organization [facility] Care Team Providers Care Veterinary Toxicologist Name Role Phone Benny Fair MD Primary Care Provider [phone] Allergies Active Allergy Reactions Criticality Noted Date [...] 02/24/2010 06/09/2010 Pure hypercholesterolemia - Managed by [facility]: LDL <100 03/20/2006 10/13/2011 Social History Tobacco Use Types Packs/Day Years Used Date Smoking Tobacco: Never Smokeless Tobacco: Never Comments No Sex and Gender Information Value Date Recorded Sex Assigned at Not on file Legal Sex Female 3:54 AM CRISIS MANAGER Gender Identity Not on file Sexual Orientation [...] Health Maintenance Due Date Last Done Comments Diabetes: Eye Exam 1950 Diabetes: Foot Exam 1950 Hepatitis C Virus (HCV) Screening 1950 Cologuard 01/17/1997 Colonoscopy 01/17/1997 Colorectal Cancer Screening 01/17/1997 Immunochemical Fecal Occult Blood 01/17/1997 Diabetes: Nephropathy Screening 07/30/2010 07/30/2009 Diabetes: Hemoglobin A1c 11/29/2010 06/01/2010 Zoster Immunization (2 of 3) 04/28/2013 03/03/2013 SARS-COV-2 Immunization ( season) 2024 Influenza Immunization (#1) 01/05/202503/07, 03/23/2017, 01/21/2016, Additional history exists Respiratory Syncytial Virus (RSV) Immunization (Adult) (1 - 1-dose 75+ series) 01/17/2027 Hepatitis B Immunization Completed 009, 04/22/2008, 03/25/2008 DTaP/Tdap/Td Immunization Discontinued 02/28/2011 TdaP Immunization Completed 02/28/2011 Pneumococcal Immunization (50+ years) Completed 03/23/2017, 02/03/2016 Pneumococcal Immunization Combined Discontinued 03/23/2017, 02/03/2016 Human Papillomavirus (HPV) Immunization Aged Out No longer eligible based on patient's age to complete this topic Meningococcal Immunization (ACWY) Aged Out No longer [...] Recently Relevant to Health Maintenance Care Teams Veterinary Toxicologist Relationship Specialty [place] [address] [place] [address] PCP - General 08/08/09
--- OUTSIDE RECORDS SUMMARY | 2024-11-11 11:12 | XMS_ITS | Encounter Summary ---
Author Organization [facility] Address [address] [place] [address] Phone Care Team Providers Care Teletypewriter Operator Name Role Phone Jacob Castellano MD Primary Care Provider [phone] Encounter Details Date Type Department Care Team (Late st Contact Info) Description 06/10/2019 Orders Only [facility] Scanning, Provider Social History Tobacco Use Types Packs/Day Years Used Date Smoking Tobacco: Never Comments Unknown Sex and Gender Information Value Date Recorded Sex Assigned at Not on file Legal Sex Female 3:51 AM ELEVATOR OPERATOR FREIGHT Gender Identity Female 12/29/2020 4:15 PM CDT Sexual Orientation Straight 06/19/2022 8: 32 PM ELEVATOR OPERATOR FREIGHT documented as of this encounter Plan of Treatment Not on file documented as of this encounter Procedures Procedure Name Priority Date/Time Associated Diagnosis Comments SCAN - LABS 06/10/2019 documented in this encounter Results * SCAN - LABS (06/10/2019) us Provider Scanning Final Result documented in this encounter Visit Diagnoses Not on filedocumented in this encounter Care Teams Teletypewriter Operator Relationship Specialty Start Date End Date Jacob Castellano MD [address] [place], [place] [id number] PCP - General 03/20/17 documented as of this encounter
--- OUTSIDE RECORDS SUMMARY | 2024-11-11 11:12 | XMS_ITS | Referral Summary ---
Author Organization [facility] Address [address] [place] [address] Care Team Providers Care Surgical Garment Assembly Supervisor Name Role Phone Jacob Castellano MD Primary Care Provider [phone] Allergies Active Allergy Reactions Criticality Noted Date Comments Iron Dextran Itching Low 03/14/2016 Sulfa (Sulfonamide Antibiotics) Hives High 11/04 Medications multivitamin tabletIndication s:Vitamin Deficiency Prevention daily. Active metFORMIN (GLUCOPHAGE) 500 mg tablet 2 (two) times a day with meals Active atorvastatin (LIPITOR) 10 mg tablet daily. Active Lactobacillus acidophilus 20 billion cell capsule unsure med dosage qd Active FLUAD 6589-7887, 65 YR UP,,PF, 45 mcg (15 mcg x 3)/0.5 mL syringe ADM 0.5ML IM UTD 0 8 Active calcitRIOL (ROCALTROL) 0.5 mcg capsule daily 2 tabs qd 0 Active latanoprost (XALATAN) 0.005 % ophthalmic solution INT 1 GTT IN OU HS [address] (PROTONIX) 40 mg EC tablet daily 0 Active zoledronic dpzi-pwptdbiV-ma ter (RECLAST) 5 mg/100 mL piggyback Infuse [...] (04/26/2022): Added automatically from request for surgery [id number] Esophageal varices without bleeding 03/11/2020 Overview (03/11/2020): Added automatically from request for surgery [id number] Immunizations Immunization Administration Dates Next Due Moderna [...] on file Legal Sex Female 3:51 AM 1ST PRESSMAN Gender Identity Female 12/29/2020 4:15 PM CDT Sexual Orientation Straight 06/19/2022 8: 32 PM 1ST PRESSMAN Last Filed Vital Signs Vital Sign Reading Time Taken Comments Blood Pressure 136/79 01/10/2024 9:16 AM CDT Pulse 67 01/10/2024 9:16 AM CDT Temperature 36.3 C (97.3 F) 01/10/2024 9:16 AM CDT Respiratory Rate 16 06/26/2022 10:2 9 AM 1ST PRESSMAN Oxygen Saturation 98% 01/11/2023 8:40 AM CDT [...] Health Maintenance Insurance UHC MEDICARE [facility] Address: [facility] [address] [place] [address] AETNA MEDICARE AETNA MEDICARE Advance Directives For more information, please contact: [phone] * Full Code (Latest Code Status on File) Date Activated Date Inactivated Comments 06/26/2022 9:09 AM 06/26/2022 2:40 PM * Full Code Date Activated Date Inactivated Comments 04/27/2020 8:09 AM 04/27/2020 2:18 PM Care Teams Surgical Garment Assembly Supervisor Relationship Specialty Start Date End Date Jacob Castellano MD [address] [place] [address] PCP - General 03/20/17
--- OUTSIDE RECORDS SUMMARY | 2024-11-11 11:12 | XMS_ITS | Encounter Summary ---
Author Organization [facility] Address [address] [place] [address] Phone Care Team Providers Care Research Worker Encyclopedia Name Role Phone Jacob Castellano MD Primary Care Provider [phone] Encounter Details Date Type Department Care Team [...] on file Legal Sex Female 3:51 AM BENCH WORKER BINDING Gender Identity Female 12/29/2020 4:15 PM CDT Sexual Orientation Straight 06/19/2022 8: 32 PM BENCH WORKER BINDING documented as of this encounter Plan of Treatment Not on file documented as of this encounter Procedures Procedure Name Priority Date/Time Associated Diagnosis Comments SCAN - LABS 03/12/2022 documented in this encounter Results * SCAN - LABS (03/12/2022) us Provider Scanning Final Result documented in this encounter Visit Diagnoses Not on filedocumented in this encounter Care Teams Research Worker Encyclopedia Relationship Specialty Start Date End Date Jacob Castellano MD [address] [place] [address] PCP - General 03/20/17 documented as of this encounter
--- OUTSIDE RECORDS SUMMARY | 2024-11-11 11:12 | XMS_ITS | Encounter Summary ---
Author Organization [facility] Address [address] [place] [address] Phone Care Team Providers Care Jewelry Manager Name Role Phone Jacob Castellano MD Primary Care Provider [phone] Encounter Details Date Type Department Care Team [...] on file Legal Sex Female 3:51 AM CUSTOMER ENGAGEMENT SPECIALIST Gender Identity Female 12/29/2020 4:15 PM CDT Sexual Orientation Straight 06/19/2022 8: 32 PM CUSTOMER ENGAGEMENT SPECIALIST documented as of this encounter Plan of Treatment Not on file documented as of this encounter Procedures Procedure Name Priority Date/Time Associated Diagnosis Comments SCAN - LABS 09/13/2022 documented in this encounter Results * SCAN - LABS (09/13/2022) us Provider Scanning Final Result documented in this encounter Visit Diagnoses Not on filedocumented in this encounter Care Teams Jewelry Manager Relationship Specialty Start Date End Date Jacob Castellano MD [address] [place], [place] [id number] PCP - General 03/20/17 documented as of this encounter
[2024-11-11 11:29] LABS: Add Urine Microscopic? YES; Appearance Urine Clear (Clear); Glucose Urine UA Negative (Negative); Leukocyte Esterase Ur 1+ (Negative); Nitrate Urine Positive (Negative); Specific Grav Ur <= 1.005 (1.010-1.020)
== END 2024-11-11 11:09 | disposition home or self-care (01) ==
LOC: CHSLAB 11:10
PROVIDERS: PCP Internal Medicine; Visit Provider Internal Medicine
DX: N39.0 Urinary tract infection, site not specified (principal)
CPT/HCPCS: 81001; 87086

== ENCOUNTER 2025-02-26 13:15 | Outpatient (CLI) | payer MEDICARE, SELFPAY ==
--- NOTE | ~2025-02-26 | MM_ITS ---
EXAMINATION: MM screening lance BI w kami HISTORY: Screening TECHNIQUE: Craniocaudal and mediolateral oblique 3-D tomosynthesis images were obtained and synthetic 2-D images were generated. CAD analysis was submitted and interpreted. COMPARISON: Comparison to multiple prior studies sequentially, with oldest reviewed study dated , 01/20/2019 BREAST PARENCHYMAL COMPOSITION: There are scattered areas of fibroglandular density. FINDINGS: There is no evidence of suspicious mass, calcification, or architectural distortion to suggest malignancy in either breast. IMPRESSION: 1. No mammographic evidence of malignancy. 2. Recommend routine screening mammography in one year. BI-RADS Category 1: Negative Reviewed, dictated and finalized at location B.
--- OUTSIDE RECORDS SUMMARY | 2025-02-26 14:10 | XMS_ITS | Encounter Summary ---
Author Organization [facility] Address [address] [facility] [address] [place] [address] Phone Care Team Providers Care Monument Mason Name Role Phone Jacob Castellano MD Primary Care Provider [phone] Encounter Details Date Type Department Care Team (Late st Contact Info) Description 06/10/2019 Orders Only [facility] Scanning, Provider Social History Tobacco Use Types Packs/Day Years Used Date Smoking Tobacco: Never Comments Unknown Sex and Gender Information Value Date Recorded Sex Assigned at Not on file Legal Sex Female 3:51 AM UNIX ARCHITECT Gender Identity Female 12/29/2020 4:15 PM CDT Sexual Orientation Straight 06/19/2022 8: 32 PM UNIX ARCHITECT documented as of this encounter Plan of Treatment Upcoming Encounters Date Type Department Care Team (Latest Contact Info) Description 03/27/2025 8:00 AM UNIX ARCHITECT Hospital Encounter [facility] [address] [address] Cecelia Richardson MD [address] [facility] [place] [address] 03/27/2025 8:00 AM UNIX ARCHITECT - 03/27/2025 8:30 AM UNIX ARCHITECT Surgery [facility] [address] [address] Cecelia Richardson MD [address] [place] [address] ESOPHAGOGASTRODUODENOSCOPY Scheduled Procedures Name Priority Associated Diagnoses Date/Ti me ESOPHAGOGASTRODUODENOSCOPY 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) Other cirrhosis of liver Esophageal varices without bleeding, unspecified esophageal varices type (HCC) Autoimmune hepatitis (HCC) Hepatic fibrosis, advanced fibrosis 03/27/2025 8:00 AM UNIX ARCHITECT documented as of this encounter Procedures Procedure Name Priority Date/Time Associated Diagnosis Comments SCAN - LABS 06/10/2019 documented in this encounter Results * SCAN - LABS (06/10/2019) us Provider Scanning Final Result documented in this encounter Visit Diagnoses Not on filedocumented in this encounter Care Teams Monument Mason Relationship Specialty Start Date End Date Jacob Castellano MD [address] [place] [address] PCP - General 03/20/17 documented as of this encounter
--- OUTSIDE RECORDS SUMMARY | 2025-02-26 14:10 | XMS_ITS | Encounter Summary ---
Author Organization [facility] Address [address] [facility] [address] [place] [address] Phone Care Team Providers Care Machine Stemmer Name Role Phone Jacob Castellano MD Primary Care Provider [phone] Encounter Details Date Type Department Care Team [...] on file Legal Sex Female 3:51 AM WEB ARCHITECT Gender Identity Female 12/29/2020 4:15 PM CDT Sexual Orientation Straight 06/19/2022 8: 32 PM WEB ARCHITECT documented as of this encounter Plan of Treatment Upcoming Encounters Date Type Department Care Team (Latest Contact Info) Description 03/27/2025 8:00 AM WEB ARCHITECT Hospital Encounter [facility] [address] [place] [address] [address] [place] [address] Cecelia Richardson MD [address] [facility] [place] [place] [address] 03/27/2025 8:00 AM WEB ARCHITECT - 03/27/2025 8:30 AM WEB ARCHITECT Surgery [facility] [address] [place] [address] Cecelia Richardson MD [address] [place] [address] ESOPHAGOGASTRODUODENOSCOPY Scheduled Procedures Name Priority Associated Diagnoses Date/Ti me ESOPHAGOGASTRODUODENOSCOPY 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) Other cirrhosis of liver Esophageal varices without bleeding, unspecified esophageal varices type (HCC) Autoimmune hepatitis (HCC) Hepatic fibrosis, advanced fibrosis 03/27/2025 8:00 AM WEB ARCHITECT documented as of this encounter Procedures Procedure Name Priority Date/Time Associated Diagnosis Comments SCAN - LABS 03/12/2022 documented in this encounter Results * SCAN - LABS (03/12/2022) Provider Scanning Final Result documented in this encounter Visit Diagnoses Not on filedocumented in this encounter Care Teams Machine Stemmer Relationship Specialty Start Date End Date Jacob Castellano MD [address] [place] [address] PCP - General 03/20/17 documented as of this encounter
--- OUTSIDE RECORDS SUMMARY | 2025-02-26 14:10 | XMS_ITS | Encounter Summary ---
Author Organization [facility] Address [address] [place] [address] Phone Care Team Providers Care Container Crane Operator Name Role Phone Jacob Castellano MD Primary Care Provider + [phone] Encounter Details Date Type Department Care Team (Late st Contact Info) Description 02/25/2025 Telephone [facility] Medicine Gastroenterology [address] [facility] Advanced [facility] 12th [place] [address] [place] [address] Gabriella Mendiola Social History Tobacco Use Types Packs/Day Years [...] on file Legal Sex Female 3:51 AM COMMERCIAL FIELD INSPECTOR Gender Identity Female 12/29/2020 4:15 PM CDT Sexual Orientation Straight 06/19/2022 8: 32 PM COMMERCIAL FIELD INSPECTOR documented as of this encounter Miscellaneous Notes * Telephone Encounter - Gabriella Mendiola - 02/25/2025 12:46 PM CDT PROCEDURE Type: EGD Indication: Varices,Jimenez's Referring Physician: Uriah Date Referred: 01/06/2025 CLINICAL ASSESSMENT [x] Clinical assessment obtained via phone call with patient 10.22.25 [x]COVID/Flu Screening questions [x]BMI>45, Weight >350 lbs [] Patient had GI procedure/CPAP clinic/GI clinic <30 days (if Yes, no medical screening questions needed unless new clinical issues in last 30 days) Medical screening questions: BMI/Weight: NA CARDIOVASCULAR: None RESPIRATORY/LUNG: DESTINEY- No SC if non-compliant with CPAP RENAL/LIVER/GI: None GI: Previous COLON or EGD: Hx of Polyps, Cao, Barretts:yes Hx of Constipation:No Have you ever required a two day prep? No BLEEDING/CLOTTING: None NEUROLOGICAL: None ENDOCRINE: Diabetes- No BG above 250 or AIC >10 for SC. No BG =>400 for [facility]. Bg>300 at [facility] may get rescheduled PRIOR PROCEDURE ISSUES: None TUGBOAT DISPATCHER/: NA IMPLANTS.: None PSYCH/Behavioral Hx: No SC has limited security Notes: PACEMAKER/ICD Y/N: No/NA Device info: Last documented device check: Any shocks since last cards visit (if yes must see cardiology for procedure clearance): DIALYSIS Y/N: No/NA []HD- Schedule on non-HD day, see protocol []PD- Drain PD fluid AM of procedure, if colonoscopy order AB ppx, see protocol REGULAR DIABETIC MEDS Y/N: Yes []Yes- Discuss diabetes medication management with prescribing physician GLP MEDICATIONS Y/N: No/NA None Day of the week medication taken Significant GI Symptoms (Nausea, Vomiting, Indigestion, Bloating) while taking GLP-1? (choose one) [] No - Instructed to avoid taking the dose the day of their procedure. [] Yes, BUT - These GI symptoms are expected to have resolved by the day of procedure. Instructed to avoid taking a dose the day of their procedure. [] Yes, AND - These GI symptoms are expected to be present on the day of procedure. Instructed to discuss holding GLP-1 the week before their procedure with their ordering provider. Letter Sent to Ordering Physician. Diet Instructions (at minimum for all cases) [] Patient given 24-hour clear liquid diet instructions. BLOOD THINNERS/ANTICOAG/ANTIPLATELET (BESIDES ASA) Medication: NONE Physician contacted for hold order/date sent: Hold order Method sent: Date hold received: Hold instructions: CONTINUE ASPIRIN INFORMATION REQUESTED []Imaging: []Medical Progress Note/H&P []Medication list []Other: PATIENT OPTIMIZATION []Physician reviewing escalation: []CPAP: Date scheduled: Outcome : [] Location limitations: Scheduling Scheduling location limitations: Orthopedics Pediatric Physician needed [] NA Language: POA [] NA Name: Required extended education:no SPECIAL PROCEDURE INSTRUCTIONS Scheduling Notes Procedure information Date of procedure: 03/27/2025 Time of procedure: 8 AM Arrival time: 7 AM Location: [facility] Proceduralist: Debra Canas Method of instructions: MyChart and Verbal []Confirmation of ride/pulp making plant operator []Post anesthesia restrictions given []NPO Instructions: []Diet Instructions: []Take non-blood thinner prescription meds that morning []Bring med list, photo ID, insurance card, no valuables []Bring COVID vaccination card (if vaccinated) Bowel Prep Prep prescribed: NA Method of Bowel Prep (RX): NA * Telephone Encounter - Gabriella Mendiola - 02/25/2025 12:42 PM CDT ----- Message from Holly Dwyer MD sent at 01/08/2025 9:47 AM CDT ----- Regarding: EGD She needs an EGD before the end of the year but did not want to schedule today as she did not know her schedule or her husbands( he had an emergency CABG this week). Any provider is ok. Thanks documented in this encounter Plan of Treatment Upcoming Encounters Date Type Department Care Team (Latest Contact Info) Description 03/27/2025 8:00 AM [facility] Hospital Encounter [facility] [address] [place] [address] Cecelia Richardson MD [address] [facility] [place] [address] 03/27/2025 8:00 AM COMMERCIAL FIELD INSPECTOR - 03/27/2025 8:30 AM COMMERCIAL FIELD INSPECTOR Surgery [facility] [address] [facility] [address] [place] [address] Cecelia Richardson MD [address] [facility] [place] [address] ESOPHAGOGASTRODUODENOSCOPY Scheduled Procedures Name Priority Associated Diagnoses Date/Ti me ESOPHAGOGASTRODUODENOSCOPY 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) Other cirrhosis of liver Esophageal varices without bleeding, unspecified esophageal varices type (HCC) Autoimmune hepatitis (HCC) Hepatic fibrosis, advanced fibrosis 03/27/2025 8:00 AM COMMERCIAL FIELD INSPECTOR documented as of this encounter Visit Diagnoses Diagnosis 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)- Primary Other cirrhosis of liver Esophageal varices without bleeding, unspecified esophageal varices type (HCC) Autoimmune hepatitis (HCC) Autoimmune hepatitis Hepatic fibrosis, advanced fibrosis Esophageal varices without bleeding (HCC) Esophageal varices without mention of bleeding 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) Other cirrhosis of liver Autoimmune hepatitis (HCC) Autoimmune hepatitis Hepatic fibrosis, 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
--- OUTSIDE RECORDS SUMMARY | 2025-02-26 14:10 | XMS_ITS | Encounter Summary ---
Author Organization [facility] Address [address] [place] [address] Phone Care Team Providers Care Hand Glove Cleaner Name Role Phone Jacob Castellano MD Primary Care Provider + [phone] Encounter Details Date Type Department Care Team [...] on file Legal Sex Female 3:51 AM QUALITY AUDIT REPRESENTATIVE Gender Identity Female 12/29/2020 4:15 PM CDT Sexual Orientation Straight 06/19/2022 8: 32 PM QUALITY AUDIT REPRESENTATIVE documented as of this encounter Plan of Treatment Upcoming Encounters Date Type Department Care Team (Latest Contact Info) Description 03/27/2025 8:00 AM QUALITY AUDIT REPRESENTATIVE Hospital Encounter [facility] [address] [place] [address] Cecelia Richardson MD [address] [place] [address] 03/27/2025 8:00 AM QUALITY AUDIT REPRESENTATIVE - 03/27/2025 8:30 AM QUALITY AUDIT REPRESENTATIVE Surgery 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) Other cirrhosis of liver Esophageal varices without bleeding, unspecified esophageal varices type (HCC) Autoimmune hepatitis (HCC) Hepatic fibrosis, advanced fibrosis 03/27/2025 8:00 AM QUALITY AUDIT REPRESENTATIVE documented as of this encounter Procedures Procedure Name Priority Date/Time Associated Diagnosis Comments SCAN - LABS 09/13/2022 documented in this encounter Results * SCAN - LABS (09/13/2022) Provider Scanning Final Result documented in this encounter Visit Diagnoses Not on filedocumented in this encounter Care Teams Hand Glove Cleaner Relationship Specialty Start Date End Date Jacob Castellano MD [address] [place] [address] PCP - General 03/20/17 documented as of this encounter
--- OUTSIDE RECORDS SUMMARY | 2025-02-26 14:10 | XMS_ITS | Encounter Summary ---
Author Organization [facility] Address [address] [facility] [address] [place] [address] Phone Care Team Providers Care Special Education Bus Driver Name Role Phone Jacob Castellano MD Primary Care Provider [phone] Encounter Details Date Type Department Care Team (Late st Contact Info) Description 03/31/2019 Orders Only [facility] Scanning, Provider Social History Tobacco Use Types Packs/Day Years Used Date Smoking Tobacco: Never Comments Unknown Sex and Gender Information Value Date Recorded Sex Assigned at Not on file Legal Sex Female 3:51 AM ORACLE APPLICATIONS DEVELOPER Gender Identity Female 12/29/2020 4:15 PM CDT Sexual Orientation Straight 06/19/2022 8: 32 PM ORACLE APPLICATIONS DEVELOPER documented as of this encounter Plan of Treatment Upcoming Encounters Date Type Department Care Team (Latest Contact Info) Description 03/27/2025 8:00 AM ORACLE APPLICATIONS DEVELOPER Hospital Encounter [facility] [address] [address] Cecelia Richardson MD [address] [facility] [place] [address] 03/27/2025 8:00 AM ORACLE APPLICATIONS DEVELOPER - 03/27/2025 8:30 AM ORACLE APPLICATIONS DEVELOPER Surgery [facility] [address] [address] Cecelia Richadrson MD [address] [place] [address] ESOPHAGOGASTRODUODENOSCOPY Scheduled Procedures Name Priority Associated Diagnoses Date/Ti me ESOPHAGOGASTRODUODENOSCOPY 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) Other cirrhosis of liver Esophageal varices without bleeding, unspecified esophageal varices type (HCC) Autoimmune hepatitis (HCC) Hepatic fibrosis, advanced fibrosis 03/27/2025 8:00 AM ORACLE APPLICATIONS DEVELOPER documented as of this encounter Procedures Procedure Name Priority Date/Time Associated Diagnosis Comments SCAN - RADIOLOGY/IMAGING 03/31/2019 documented in this encounter Results * SCAN - RADIOLOGY/IMAGING (03/31/2019) Anatomical Region Laterality Modality Other us Provider Scanning Final Result documented in this encounter Visit Diagnoses Not on filedocumented in this encounter Care Teams Special Education Bus Driver Relationship Specialty Start Date End Date Jacob Castellano MD [address] [place] [address] PCP - General 03/20/17 documented as of this encounter
--- OUTSIDE RECORDS SUMMARY | 2025-02-26 14:10 | XMS_ITS | Clinical Summary ---
Author Organization [facility] Address [address] [place] [address] Care Team Providers Care Doorperson Name Role Phone Jacob Castellano MD Primary Care Provider [phone] Allergies Active Allergy Reactions Criticality Noted Date Comments Iron Dextran Itching Low 03/14/2016 Sulfa (Sulfonamide Antibiotics) Hives High 11/04 Medications multivitamin tabletIndication s:Vitamin Deficiency Prevention daily. Active metFORMIN (GLUCOPHAGE) 500 mg tablet 2 (two) times a day with meals Active atorvastatin (LIPITOR) 10 mg tablet daily. Active Lactobacillus acidophilus 20 billion cell capsule unsure med dosage qd Active FLUAD 8205-5273, 65 YR UP,,PF, 45 mcg (15 mcg x 3)/0.5 mL syringe ADM 0.5ML IM UTD 0 8 Active calcitRIOL (ROCALTROL) 0.5 mcg capsule daily 2 tabs qd 0 Active latanoprost (XALATAN) 0.005 % ophthalmic solution INT 1 GTT IN OU HS [address] (PROTONIX) 40 mg EC tablet daily 0 Active zoledronic enuj-onfoqynS-cl ter (RECLAST) 5 mg/100 mL piggyback Infuse 100 mL (5 mg total) into a venous catheter once Active Januvia 100 mg tablet 1 tablet (100 mg total) daily 3 Active ursodioL (ACTIGALL) 300 mg capsule Take 2 capsules (600 mg total) by mouth 2 (two) times a day 120 capsule 11 3 Active nadoloL (CORGARD) 20 mg tabletIndication s:Esophageal varices without bleeding, unspecified esophageal varices type (HCC),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),Autoimmune hepatitis (HCC) Take 1 tablet (20 mg total) by mouth daily 90 tablet 2 5 04/06/20 25 Active glipiZIDE XL (GLUCOTROL XL) 2.5 mg 24 hr tabletIndication s:type 2 diabetes mellitus Take 1 tablet (2.5 mg total) by mouth daily Active Active Problems Problem Noted Date Diagnosed Date Hepatic cirrhosis due to primary biliary cholang itis 02/25/2025 Other cirrhosis of liver 02/25/2025 Autoimmune hepatitis 02/25/2025 Hepatic fibrosis, advanced fibrosis 02/25/2025 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 04/26/2022 Overview (04/26/2022): Added automatically from request for surgery [id number] Esophageal varices without bleeding 03/11/2020 Overview (03/11/2020): Added automatically from request for surgery [id number] Encounters Date Type Department Care Team Description 02/25/2025 Telephone [facility] Medicine Gastroenterology [address] [facility] [place] [address] [place] [address] Gabriella Mendiola 01/09/2025 Telephone [facility] Medicine Gastroenterology [address] [facility] [place] [address] [place] [address] Beatriz Bowman 01/08/2025 9:00 AM CDT Office Visit [facility] Medicine Gastroenterology [address] [facility] [place] [address] [place] [address] Holly Dwyer MD 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) (Primary Dx); Other cirrhosis of liver; Localized osteoporosis ([place]) 01/08/2025 7:25 AM CDT - 01/08/2025 11:59 PM CDT Hospital Encounter [facility] [address] [id number] 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 [...] Irritable bowel syndrome Type 2 diabetes mellitus History of transfusion Glaucoma Hyperlipidemia Family History [...] on file Legal Sex Female 3:51 AM CONTACT PERSON Gender Identity Female 12/29/2020 4:15 PM CDT Sexual Orientation Straight 06/19/2022 8: 32 PM CONTACT PERSON Obstetrics History Last Filed Vital Signs Vital Sign Reading Time Taken Comments Blood Pressure 107/65 01/08/2025 9:03 AM CDT Pulse 64 01/08/2025 9:03 AM CDT Temperature 36.1 C (96.9 F) 01/08/2025 9:03 AM CDT Respiratory Rate 16 01/08/2025 9:03 AM CDT Oxygen Saturation 97% 01/08/2025 9:03 AM CDT Inhaled Oxygen Concentration - - Weight 77.9 kg (171 lb 12.8 oz) 01/08/2025 9:03 AM CDT Height 168.9 cm (5' 6.5) 01/08/2025 9:03 AM CDT Body Mass Index 27.31 01/08/2025 9:03 AM CDT Plan of Treatment Upcoming Encounters Date Type Department Care Team (Latest Contact Info) Description 03/27/2025 8:00 AM CONTACT PERSON Hospital Encounter [facility] [place] [address] [facility] [address] [place] [address] Cecelia Richardson MD [address] [facility] [place] [address] 03/27/2025 8:00 AM CONTACT PERSON - 03/27/2025 8:30 AM CONTACT PERSON Surgery [facility] [place] [address] [facility] [address] [place] [address] Cecelia Richardson MD [address] [facility] [place] [address] ESOPHAGOGASTRODUODENOSCOPY Scheduled Procedures Name Priority Associated Diagnoses Date/Ti me ESOPHAGOGASTRODUODENOSCOPY 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) Other cirrhosis of liver Esophageal varices without bleeding, unspecified esophageal varices type (HCC) Autoimmune hepatitis (HCC) Hepatic fibrosis, advanced fibrosis 03/27/2025 8:00 AM CONTACT PERSON Health Maintenance Due Date Last Done Comments Breast Cancer Screening-Mammogram 1950 Depression Screening 1950 Osteoporosis Screening-Bone Density Scan 1950 Zoster Vaccine (2 of 3) 04/28/2013 03/03/2013 Well Visit 65+ 01/17/2017 DTaP/Tdap/Td Vaccine (2 - Td or Tdap) 02/28/2021 02/28/2011 Fall Risk Assessment 06/26/2023 06/26/2022 Covid-19 Vaccine (4 - 2024-2 6 season) 2025 03/04/2021, 07/16/2020, 06/19/2020 Influenza Vaccine (#1) 2025 , 03/20/2018, 03/23/2017, Additional history exists Colon Cancer Screening-Colonoscopy 05/22/2027 05/22/2017 Hepatitis C Screening Completed 04/24/2013 Pneumococcal vaccine 65+ Completed 03/23/2017, 01/06 Colon Cancer Screening-CT Colonography Discontinued 05/22/2017 Colon Cancer Screening-DNA Stool Discontinued 05/22/19 18 Colon Cancer Screening-FIT Discontinued 05/22/2017 Colon Cancer Screening-Sigmoidoscopy Discontinued 05/22/2017 Procedures Procedure Name Priority Date/Time Associated Diagnosis Comments US LIVER W COMPLETE DOPPLER Schedule Routine, Read Routine (OP Routine) 01/08/2025 8:27 AM CDT 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 Morphologic features of cirrhosis without suspicious focal lesion. 2. US LI-RADS Screening/Surveillance Category: US 1 - Negative. 3. Visualization Score: A: No or minimal limitations in liver visualization. 4. No Doppler evidence of thrombosis. US LI-RADS 2023 REFERENCE: US Category: US-1 Negative: No ultrasound evidence of hepatocellular carcinoma (HCC). US-2 Subthreshold: Observation<10 mm in diameter, not definitely benign. US-3 Positive: Observation detected that may warrant multi-phase contrast-enhanced imaging. Observation >/= 10 mm in diameter, not definitely benign, including areas of parenchymal distortion OR new thrombus in vein. Visualization Score: A. No or minimal limitations: Limitations, if any, are unlikely to meaningfully affect sensitivity. The liver is homogenous or minimally heterogenous with minimal beam attenuation or shadowing, and is visualized in near entirety. B. Moderate limitations: Limitations may obscure small masses. The liver is moderately heterogenous with moderate beam attenuation or shadowing, and some portions of the liver or diaphragm are not visualized. C. Severe limitations: Limitations significantly lower sensitivity for focal liver lesions. The liver is severely heterogeneous with severe beam attenuation or shadowing, and the majority (>50%) of the liver or diaphragm is not visualized. Consider alternative surveillance imaging modality depending on risk factors. Electronically signed by: Rosendo Foreman MD PHD Narrative 01/08/2025 8:30 AM CDT EXAMINATION: 1. LIVER SONOGRAM 2. LIVER DOPPLER HISTORY: Primary biliary cirrhosis. Surveillance ultrasound in patient at high risk for hepatocellular carcinoma. COMPARISON: Liver sonogram 01/09/2024, liver sonogram with Doppler 11/23/2022 FINDINGS: LIVER: Visualization Score: A: No or minimal limitations in liver visualization. Morphology/Parenchyma/contour: There is relative hypertrophy of the caudate lobe. The echotexture is coarse. The echogenicity is normal. There is surface nodularity. Liver observations: No focal liver observations. Ascites: No ascites. LIVER DOPPLER: Color Doppler and spectral analysis were used to evaluate the hepatic vasculature. Portal veins: The main portal vein as well as the right and left branches have hepatopetal (antegrade) flow. No thrombosis is visualized. Hepatic veins: The middle, right, and left hepatic veins are patent with antegrade flow. Portosplenic confluence: The portosplenic confluence is patent with appropriate directional flow. IVC: The inferior vena cava at the level of the liver is patent with appropriate directional flow. Hepatic artery: The visualized main hepatic artery is patent with antegrade flow. Procedure Note Rosendo Foreman MD PhD - 01/08/2025 EXAMINATION: 1. LIVER SONOGRAM 2. LIVER DOPPLER HISTORY: Primary biliary cirrhosis. Surveillance ultrasound in patient at high risk for hepatocellular carcinoma. COMPARISON: Liver sonogram 01/09/2024, liver sonogram with Doppler 11/23/2022 FINDINGS: LIVER: Visualization Score: A: No or minimal limitations in liver visualization. Morphology/Parenchyma/contour: There is relative hypertrophy of the caudate lobe. The echotexture is coarse. The echogenicity is normal. There is surface nodularity. Liver observations: No focal liver observations. Ascites: No ascites. LIVER DOPPLER: Color Doppler and spectral analysis were used to evaluate the hepatic vasculature. Portal veins: The main portal vein as well as the right and left branches have hepatopetal (antegrade) flow. No thrombosis is visualized. Hepatic veins: The middle, right, and left hepatic veins are patent with antegrade flow. Portosplenic confluence: The portosplenic confluence is patent with appropriate directional flow. IVC: The inferior vena cava at the level of the liver is patent with appropriate directional flow. Hepatic artery: The visualized main hepatic artery is patent with antegrade flow. IMPRESSION: 1. Morphologic features of cirrhosis without suspicious focal lesion. 2. US LI-RADS Screening/Surveillance Category: US 1 - Negative. 3. Visualization Score: A: No or minimal limitations in liver visualization. 4. No Doppler evidence of thrombosis. US LI-RADS 2023 REFERENCE: US Category: US-1 Negative: No ultrasound evidence of hepatocellular carcinoma (HCC). US-2 Subthreshold: Observation<10 mm in diameter, not definitely benign. US-3 Positive: Observation detected that may warrant multi-phase contrast-enhanced imaging. Observation >/= 10 mm in diameter, not definitely benign, including areas of parenchymal distortion OR new thrombus in vein. Visualization Score: A. No or minimal limitations: Limitations, if any, are unlikely to meaningfully affect sensitivity. The liver is homogenous or minimally heterogenous with minimal beam attenuation or shadowing, and is visualized in near entirety. B. Moderate limitations: Limitations may obscure small masses. The liver is moderately heterogenous with moderate beam attenuation or shadowing, and some portions of the liver or diaphragm are not visualized. C. Severe limitations: Limitations significantly lower sensitivity for focal liver lesions. The liver is severely heterogeneous with severe beam attenuation or shadowing, and the majority (>50%) of the liver or diaphragm is not visualized. Consider alternative surveillance imaging modality depending on risk factors. Electronically signed by: Rosendo Foreman MD PHD us Holly Dwyer MD IMG US PROCEDURES Fi nal Result * COLONOSCOPY REPORT (05/22/2017) Anatomical Region Laterality Modality Other us Provider Scanning GI PROCEDURE ORDERABLES Final Result from Last 3 Months or Most Recently Relevant to Health Maintenance Insurance [place] [address] [facility] Advance Directives For more information, please contact: [phone] * Full Code (Latest Code Status on File) Date Activated Date Inactivated Comments 06/26/2022 9:09 AM 06/26/2022 2:40 PM * Full Code Date Activated Date Inactivated Comments 04/27/2020 8:09 AM 04/27/2020 2:18 PM Care Teams Doorperson Relationship Specialty Start Date End Date Jacob Castellano MD [address] [place] [address] PCP - General 03/20/17
--- OUTSIDE RECORDS SUMMARY | 2025-02-26 14:10 | XMS_ITS | Clinical Summary ---
Author Organization [facility] Care Team Providers Care Cook Enchilada Name Role Phone Benny Fair MD Primary Care Provider [phone] Allergies Active Allergy Reactions Criticality Noted Date [...] 02/24/2010 06/09/2010 Pure hypercholesterolemia - Managed by [facility]: LDL <100 03/20/2006 10/13/2011 Social History Tobacco Use Types Packs/Day Years Used Date Smoking Tobacco: Never Smokeless Tobacco: Never Comments No Sex and Gender Information Value Date Recorded Sex Assigned at Not on file Legal Sex Female 3:54 AM CO TEACHER Gender Identity Not on file Sexual Orientation [...] of 3) 04/28/2013 03/03/2013 Influenza Immunization (#1) 01/05/202503/07, 03/23/2017, 01/21/2016, Additional history exists SARS-COV-2 Immunization ( season) 2025 Respiratory Syncytial Virus (RSV) Immunization (Adult) (1 [...] Recently Relevant to Health Maintenance Care Teams Cook Enchilada Relationship Specialty [place] [address] [place] [address] PCP - General 08/08/09
--- OUTSIDE RECORDS SUMMARY | 2025-02-26 14:10 | XMS_ITS | Encounter Summary ---
Author Organization [facility] Address [address] [place] [address] Phone Care Team Providers Care Vascular Technologist Name Role Phone Jacob Castellano MD Primary Care Provider + [phone] Encounter Details Date Type Department Care Team (Late st Contact Info) Description 10/21/2024 Orders Only [facility] Scanning, Provider [...] on file Legal Sex Female 3:51 AM TASTE TESTER Gender Identity Female 12/29/2020 4:15 PM CDT Sexual Orientation Straight 06/19/2022 8: 32 PM TASTE TESTER documented as of this encounter Plan of Treatment Upcoming Encounters Date Type Department Care Team (Latest Contact Info) Description 03/27/2025 8:00 AM TASTE TESTER Hospital Encounter [facility] Digestive Disease [place] [address] [facility] [address] [place] [address] Cecelia Richardson MD [address] [facility] [place] [address] 03/27/2025 8:00 AM TASTE TESTER - 03/27/2025 8:30 AM TASTE TESTER Surgery 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) Other cirrhosis of liver Esophageal varices without bleeding, unspecified esophageal varices type (HCC) Autoimmune hepatitis (HCC) Hepatic fibrosis, advanced fibrosis 03/27/2025 8:00 AM TASTE TESTER documented as of this encounter Procedures Procedure Name Priority Date/Time Associated Diagnosis Comments SCAN - LABS 10/21/2024 documented in this encounter Results * SCAN - LABS (10/21/2024) us Provider Scanning Final Result documented in this encounter Visit Diagnoses Not on filedocumented in this encounter Care Teams Vascular Technologist Relationship Specialty Start Date End Date Jacob Castellano MD [address] [place] [address] PCP - General 03/20/17 documented as of this encounter
--- OUTSIDE RECORDS SUMMARY | 2025-02-26 14:10 | XMS_ITS | Encounter Summary ---
Author Organization [facility] Address [address] [place] [address] Phone Care Team Providers Care Cocoa Roaster Name Role Phone Jacob Castellano MD Primary Care Provider + [phone] Encounter Details Date Type Department Care Team [...] on file Legal Sex Female 3:51 AM NFL PLAYER Gender Identity Female 12/29/2020 4:15 PM CDT Sexual Orientation Straight 06/19/2022 8: 32 PM NFL PLAYER documented as of this encounter Plan of Treatment Upcoming Encounters Date Type Department Care Team (Latest Contact Info) Description 03/27/2025 8:00 AM NFL PLAYER Hospital Encounter [facility] Dig[facility]ive Disease [place] [address] [facility] [address] [place] [address] Cecelia Richardson MD [address] [facility] [place] [address] 03/27/2025 8:00 AM NFL PLAYER - 03/27/2025 8:30 AM NFL PLAYER Surgery [facility] [place] [address] [facility] [address] [place] [address] Cecelia Richardson MD [address] [facility] [place] [address] ESOPHAGOGASTRODUODENOSCOPY Scheduled Procedures Name Priority Associated Diagnoses Date/Ti me ESOPHAGOGASTRODUODENOSCOPY 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) Other cirrhosis of liver Esophageal varices without bleeding, unspecified esophageal varices type (HCC) Autoimmune hepatitis (HCC) Hepatic fibrosis, advanced fibrosis 03/27/2025 8:00 AM NFL PLAYER documented as of this encounter Procedures Procedure Name Priority Date/Time Associated Diagnosis Comments SCAN - LABS 04/22/2024 documented in this encounter Results * SCAN - LABS (04/22/2024) us Provider Scanning Edited Result - Final documented in this encounter Visit Diagnoses Not on filedocumented in this encounter Care Teams Cocoa Roaster Relationship Specialty Start Date End Date Jacob Castellano MD [address] [place] [address] PCP - General 03/20/17 documented as of this encounter
== END 2025-02-26 13:16 | disposition home or self-care (01) ==
PROVIDERS: PCP Internal Medicine; Visit Provider Internal Medicine
DX: Z12.31 Encounter for screening mammogram for malignant neoplasm of breast (principal)
CPT/HCPCS: 77063; 77067

== ENCOUNTER 2025-03-24 08:59 | Outpatient (CLI) | payer MEDICARE, SELFPAY ==
[2025-03-24 09:16] VITALS: BP 137/80; PULSE 78; RESP 16; TEMP 36.6; O2SAT 98; BMI 27.3
[2025-03-24] MEDS: ZOLEDRONIC ACID 5 MG/100 ML 100 ML 400 MG IVPB (09:40)
[2025-03-24 10:02] VITALS: BP 130/79; PULSE 72; RESP 14; TEMP 36.5; O2SAT 98
--- NOTE | 2025-03-24 10:03 | PC.NURSE ---
Tolerated Reclast infusion well. SEE MAR/Patient care notes.
== END 2025-03-24 09:00 | disposition home or self-care (01) ==
PROVIDERS: PCP Internal Medicine; Visit Provider Internal Medicine
DX: M81.0 Age-related osteoporosis without current pathological fracture (principal)
CPT/HCPCS: 96374; J3489

== ENCOUNTER 2025-04-22 07:44 | Outpatient (CLI) | payer MEDICARE, SELFPAY ==
--- OUTSIDE RECORDS SUMMARY | 2025-04-22 07:54 | XMS_ITS | Encounter Summary ---
Author Organization [facility] Address [address] [place] [address] Phone Care Team Providers Care De Icer Installer Name Role Phone Jacob Castellano MD Primary Care Provider + [phone] Encounter Details Date Type Department Care Team [...] on file Legal Sex Female 3:51 AM PONY ROLL FINISHER Gender Identity Female 12/29/2020 4:15 PM CDT Sexual Orientation Straight 06/19/2022 8: 32 PM PONY ROLL FINISHER documented as of this encounter Plan of Treatment Not on file documented as of this encounter Procedures Procedure Name Priority Date/Time Associated Diagnosis Comments SCAN - LABS 09/13/2022 documented in this encounter Results * SCAN - LABS (09/13/2022) us Provider Scanning Final Result documented in this encounter Visit Diagnoses Not on filedocumented in this encounter Care Teams De Icer Installer Relationship Specialty Start Date End Date Jacob Castellano MD [address] [place], [place] [id number] PCP - General 03/20/17 documented as of this encounter
--- OUTSIDE RECORDS SUMMARY | 2025-04-22 07:54 | XMS_ITS | Encounter Summary ---
Author Organization [facility] Address [address] [place] [address] Phone Care Team Providers Care Jailkeeper Name Role Phone Jacob Castellano MD Primary Care Provider [phone] Encounter Details Date Type Department Care Team (Late st Contact Info) Description 06/10/2019 Orders Only [facility] Scanning, Provider Social History Tobacco Use Types Packs/Day Years Used Date Smoking Tobacco: Never Comments Unknown Sex and Gender Information Value Date Recorded Sex Assigned at Not on file Legal Sex Female 3:51 AM WOOL MERCHANT Gender Identity Female 12/29/2020 4:15 PM CDT Sexual Orientation Straight 06/19/2022 8: 32 PM WOOL MERCHANT documented as of this encounter Plan of Treatment Not on file documented as of this encounter Procedures Procedure Name Priority Date/Time Associated Diagnosis Comments SCAN - LABS 06/10/2019 documented in this encounter Results * SCAN - LABS (06/10/2019) us Provider Scanning Final Result documented in this encounter Visit Diagnoses Not on filedocumented in this encounter Care Teams Jailkeeper Relationship Specialty Start Date End Date Jacob Castellano MD [address] [place], [place] [id number] PCP - General 03/20/17 documented as of this encounter
--- OUTSIDE RECORDS SUMMARY | 2025-04-22 07:54 | XMS_ITS | Clinical Summary ---
Author Organization [facility] Address [address] [place] [address] Care Team Providers Care Cremator Name Role Phone Jacob Castellano MD Primary Care Provider [phone] Allergies Active Allergy Reactions Criticality Noted Date Comments Iron Dextran Itching Low 03/14/2016 Sulfa (Sulfonamide Antibiotics) Hives High 11/04 Medications multivitamin tabletIndication s:Vitamin Deficiency Prevention daily. Active metFORMIN (GLUCOPHAGE) 500 mg tablet 2 (two) times a day with meals Active atorvastatin (LIPITOR) 10 mg tablet daily. Active Lactobacillus acidophilus 20 billion cell capsule unsure med dosage qd Active FLUAD 7498-2545, 65 YR UP,,PF, 45 mcg (15 mcg x 3)/0.5 mL syringe ADM 0.5ML IM UTD 0 8 Active calcitRIOL (ROCALTROL) 0.5 mcg capsule daily 2 tabs qd 0 Active latanoprost (XALATAN) 0.005 % ophthalmic solution INT 1 GTT IN OU HS [address] (PROTONIX) 40 mg EC tablet daily 0 Active zoledronic vzhw-dcjkxfpV-mm ter (RECLAST) 5 mg/100 mL piggyback Infuse 100 mL (5 mg total) IV once Active Januvia 100 mg tablet 1 tablet (100 mg total) daily 3 Active nadoloL (CORGARD) 20 mg tabletIndication s:Esophageal varices without bleeding, unspecified esophageal varices type (HCC),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),Autoimmune hepatitis (HCC) Take 1 tablet (20 mg total) by mouth daily 90 tablet 2 5 Active glipiZIDE XL (GLUCOTROL XL) 2.5 mg 24 hr tabletIndication s:type 2 diabetes mellitus Take 1 tablet (2.5 mg total) by mouth daily Active ursodioL (ACTIGALL) 300 mg capsuleIndicatio ns:Autoimmune hepatitis (HCC),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) Take 2 capsules (600 mg total) by mouth 2 (two) times a day 120 capsule 11 5 03/13/20 26 Active Active Problems Problem Noted Date Diagnosed Date Hepatic cirrhosis due to primary biliary cholang itis 02/25/2025 Other cirrhosis of liver 02/25/2025 Autoimmune hepatitis 02/25/2025 Hepatic fibrosis, advanced fibrosis 02/25/2025 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 Medicine Gastroenterolog y [address] [place] [address] Medical Office Building [address], [address] [place] [address] Cecelia Richardson MD Surgical pathology 03/27/2025 8:00 AM DRAINAGE INSPECTOR - 03/27/2025 8:30 AM DRAINAGE INSPECTOR Surgery [facility] Digestive Disease [address] [address] Cecelia Richardson MD ESOPHAGOGASTRODUODENOSCOPY REMOVAL SNARE 03/27/2025 7:57 AM DRAINAGE INSPECTOR Anesthesia Event [facility] Disease [address] [address] Jakub Palencia MD Potter, David G. 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 Medicine Gastroenterolog y [address] [facility] Advanced Medicine 12th [place] [address] [place] [id number] Gabriella Mendiola from Last 3 Months Immunizations Immunization Administration Dates Next Due Moderna SARS-CoV-2 Monovalen t Vaccination (12+ YRS) 03/04/2021,07/16/2020,06/19/2020 Surgical History Surgery Date Site/Laterality Comments CHOLECYSTECTOMY TONSILLECTOMY COLONOSCOPY UPPER GASTROINTESTINAL ENDOSCOPY WRIST FRACTURE SURGERY Bilateral Medical History Medical History Date Comments Body mass index (BMI) of 28.0-28.9 in adult BMI 28.0-28.9,adult - 11.8.16 - DN (Added by Conv) GERD (gastroesophageal reflux disease) Irritable bowel syndrome Type 2 diabetes mellitus History of transfusion Glaucoma Hyperlipidemia Hepatic fibrosis Cirrhosis (HCC) Family History Medical History Relation Name Comments [...] containing alc ohol? 2-3 times a week 03/27/2025 Q2: How many drinks containi ng alcohol do you have on a typical day when you are drinking? 1 or 2 03/27/2025 Q3: How often do you have si x or more drinks on one occasion? Never 03/27/2025 Personal Safety Answer Date Recorded Have you ever been in or are you currently in a harmful physical or emotional relationship or is someone making you feel afraid or unsafe? Denies 03/27/2025 Comments No Sex and Gender Information Value Date Recorded Sex Assigned at Not on file Legal Sex Female 3:51 AM DRAINAGE INSPECTOR Gender Identity Female 12/29/2020 4:15 PM CDT Sexual Orientation Straight 06/19/2022 8: 32 PM DRAINAGE INSPECTOR Last Filed Vital Signs Vital Sign Reading Time Taken Comments Blood Pressure 117/51 03/27/2025 9:30 AM DRAINAGE INSPECTOR Pulse 55 03/27/2025 9:30 AM DRAINAGE INSPECTOR Temperature 36 C (96.8 F) 03/27/2025 9:10 AM DRAINAGE INSPECTOR Respiratory Rate 15 03/27/2025 9:30 AM DRAINAGE INSPECTOR Oxygen Saturation 99% 03/27/2025 9:30 AM DRAINAGE INSPECTOR Inhaled Oxygen Concentration - - Weight 77.1 kg (170 lb) 03/27/2025 7:25 AM DRAINAGE INSPECTOR Height 167.6 cm (5' 6) 03/27/2025 7:25 AM DRAINAGE INSPECTOR Body Mass Index 27.44 03/27/2025 7:25 AM DRAINAGE INSPECTOR Plan of Treatment Health Maintenance Due Date Last Done Comments Breast Cancer Screening-Mammogram 1950 Depression Screening 1950 Osteoporosis Screening-Bone Density Scan 1950 Zoster Vaccine (2 of 3) 04/28/2013 03/03/2013 Well Visit 65+ 01/17/2017 Covid-19 Vaccine (8 - Modern a risk season) 2025 02/02/2025, 02/23/2023, 02/24/2022, Additional history exists Fall Risk Assessment 03/27/2026 03/27/2025 Colon Cancer Screening-Colonoscopy 05/22/2027 05/22/2017 DTaP/Tdap/Td Vaccine (3 - Td or Tdap) 03/14/2031 03/14/2021, 02/28/2011 Hepatitis C Screening Completed 04/24/2013 Pneumococcal vaccine 65+ Completed 03/23/2017, 01/06 Colon Cancer Screening-CT Colonography Discontinued 05/22/2017 Colon Cancer Screening-DNA Stool Discontinued 05/22/19 18 Colon Cancer Screening-FIT Discontinued 05/22/2017 Colon Cancer Screening-Sigmoidoscopy Discontinued 05/22/2017 Influenza Vaccine Completed 01/12/2025, , 02/01/2023, Additional history exists Procedures Procedure Name Priority Date/Time Associated Diagnosis Comments SURGICAL PATHOLOGY Routine 03/27/2025 8:19 AM DRAINAGE INSPECTOR 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) Other cirrhosis of liver Esophageal varices without bleeding, unspecified esophageal varices type (HCC) Autoimmune hepatitis (HCC) Hepatic fibrosis, advanced fibrosis ENDO ADD ON ESOPHAGOGASTRODUODENOSCOPY INJECTION SUBMUCOSAL 03/27/2025 7:57 AM DRAINAGE INSPECTOR 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) Other cirrhosis of liver Esophageal varices without bleeding, unspecified esophageal varices type (HCC) Autoimmune hepatitis (HCC) Hepatic fibrosis, advanced fibrosis ESOPHAGOGASTRODUODENOSCOPY REMOVAL SNARE 03/27/2025 7:57 AM DRAINAGE INSPECTOR 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) Other cirrhosis of liver Esophageal varices without bleeding, unspecified esophageal varices type (HCC) Autoimmune hepatitis (HCC) Hepatic fibrosis, advanced fibrosis EGD 03/27/2025 7:37 AM DRAINAGE INSPECTOR POCT GLUCOSE DEVICE Routine 03/27/2025 7:30 AM DRAINAGE INSPECTOR COLONOSCOPY REPORT 05/22/2017 from Last 3 Months or Most Recently Relevant to Health Maintenance Results * Surgical pathology (03/27/2025 8:19 AM DRAINAGE INSPECTOR) Tissue (Polyp(s), colon/colorectal, esophageal, gastric) 03/27/2025 8:19 AM DRAINAGE INSPECTOR Narrative PATHOLOGY [facility] - 03/30/2025 10:41 AM DRAINAGE INSPECTOR [facility] results best viewed via link to PDF [facility] Nessa Shukla Laboratory of Surgical Pathology [place] [address] Note to Patients: This report may contain a detailed description of human tissue sent by a health care provider to the laboratory for pathologic evaluation. The content of this report is essential for diagnosis and may provide important critical findings. This information may be unfamiliar to patients to review without a medical professional present. It is advised that the patient review this report in the presence of a health care provider who can answer questions and explain the details. SURGICAL PATHOLOGY REPORT FINAL Patient Name: MED SULTANA Gender: F : 1950 (Age: 75) Address: [address] [place], [place] [id number] Hospital #: [id number] Taken:03/27/2025 Received:03/27/2025 Reported: 03/30/2025 Patient Type: [facility] Service: Gastro Location: Physician(s): MD Holly Joy M.D. Rajneesh S. Jain, M.D. Diagnosis: A. Gastric polyp x1, hot snare, biopsy: - Inflamed hyperplastic polyp - Negative for intestinal metaplasia or dysplasia giyi/03/30/2025 09:38 By this signature, I attest that the above diagnosis is based upon my personal examination of the slides(and/or other material indicated in the diagnosis). Desiree Frederick MD Report Electronically Reviewed and Signed Out By Desiree Frederick MD 03/30/2025 10:41:32 Ayesha Friend M.D. History: The patient is a 75-year-old woman with hepatic cirrhosis, esophageal varices without bleeding, autoimmune hepatitis and hepatic fibrosis. Operative procedure: Esophagogastroduodenoscopy. Specimen(s) Received: A: Gastric polyp x1 removed w/ hot snare Gross Description: Received in formalin, labeledgastric polyp x1, is a purple-pink sessile polyp (3.2 x 1.5 x 1.2 cm). The polyp is inked blue, longitudinally sectioned, and entirely submitted in cassettes A1-A2. Jar 0. behu/03/27/2025 15:44 PA(s): Raquel Mandujano MS, PA(ASCP)CM By this signature, I attest that the above diagnosis is based upon my personal examination of the slides(and/or other material). Addenda/Procedures The performance characteristics of some immunohistochemical stains, fluorescence in-situ hybridization tests and immunophenotyping by flow cytometry cited in this report (if any) were determined by the Surgical Pathology and Flow Cytometry Departments at [facility] as part of an ongoing lead quality control technician program and in compliance with federally mandated regulations drawn from the Clinical Laboratory Improvement Act of 1988 (CLIA '88). Some of these tests rely on the use of analyte specific reagents and are subject to specific labeling requirements by the US Food and Drug Administration. Such diagnostic tests may only be performed in a facility that is certified by the Department of Health and Human Services as a high complexity laboratory under CLIA '88. The FDA has determined that such clearance or approval is not necessary. This test is used for clinical purposes. It should not be regarded as investigational or for research. Nevertheless, federal rules concerning the medical use of analyte specific reagents require that the following disclaimer be attached to the report: This test was developed and its performance characteristics determined by the Surgical Pathology and Flow Cytometry Departments of [facility]. It has not been cleared or approved by the U. S. Food and Drug Administration. IMAGES AND SCANNED DOCUMENTS, IF INCLUDED, ONLY VIEWABLE IN PDF VERSION OF REPORT us Cecelia Richardson MD LAB PATHOLOGY ORDERABLE S Final Result PATHOLOGY [facility] 3rd Floor [place], [place] [phone] * EGD (03/27/2025 7:37 AM DRAINAGE INSPECTOR) Anatomical Region Laterality Modality Other Narrative Procedure Note Cecelia Richardson MD - 03/27/2025 7:37 AM CST GI ENDOSCOPY [facility] Patient Name: Med Sultana Procedure Date: 03/27/2025 7:37 AM Date of : 1950 Admit Type: Outpatient Age: 75 Gender: Female Attending MD: Cecelia Richardson M.D., Room: [facility] ENDOSCOPY ROOM 8 Note Status: Finalized Procedure: Upper GI endoscopy Indications: Heartburn, Suspected Jimenez's esophagus, Cirrhosis rule out esophageal varices Referring MD: Holly Dwyer M.D. Providers: Cecelia Richardson M.D., Ratna Munoz M.D., JudyA. Jv M.D. Medicines: Monitored Anesthesia Care Complications: No immediate complications. Estimated Blood Loss: Estimated blood loss was minimal. Procedure: Pre-Anesthesia Assessment: - Immediately prior to administration ofmedications, the patient was re-assessed for adequacy to receive sedatives. The benefits, risks, and alternatives to theprocedure and sedation were discussed and informed consentwas obtained. The scope was passed under direct vision. The GIF [id number] endoscope was introducedthrough the mouth, and advanced to the second part of duodenum. The upper GI endoscopy was accomplishedwith ease. The patient tolerated the procedure well. Findings: Diminuative varices were found in the lower third of the esophagus.They were less than 1 mm in largest diameter. One 30 mm polyp with no bleeding was found at the gastroesophageal junction. Area was successfully injected with 2 mL of a 0.2 mg/mL solution of epinephrine for hemostasis. The polyp was removed with ahot snare. Resection and retrieval were complete. To prevent bleedingafter the polypectomy, one hemostatic clip was successfully placed (MR conditional). Clip physical education instructor: [employer]. There was no bleeding at the end of the procedure. There were small islands of salmon colored muscoa in the esophagus suspicious for short-segment Jimenez's esophagus present in the lower third of the esophagus. The entire examined stomach was normal. The examined duodenum was normal. Impression: This is likely an inflammatory polyp. - Diminuative esophageal varices. - Gastroesophageal junction polyp(s) were found. Resected and retrieved. Injected. Clip (MR conditional) was placed. Clip physical education instructor: [employer]. - Esophageal mucosal changes suspicious for short-segment Jimenez's esophagus. - Normal stomach. - Normal examined duodenum. Recommendation: - Discharge patient to home. - Resume previous diet. - Continue present medications. - Await pathology results. Attending Participation: I was present and participated during the entire procedure, including non-zuniga portions. Electronically signed by Cecelia Richardson MD Cecelia Richardson M.D. 03/27/2025 9:12:47 AM . Ema Carias M.D. Number of Addenda: 0 Note Initiated On: 03/27/2025 7:37 AM Cecelia Richardson MD ENDOSCOPY PROCEDURES Fi nal Result * POCT glucose (03/27/2025 7:30 AM DRAINAGE INSPECTOR) Glucose, POC 132 70 - 199 mg/dL Blood 03/27/2025 7:30 AM DRAINAGE INSPECTOR 03/27/2025 7:30 AM DRAINAGE INSPECTOR Cecelia Richardson MD LAB POCT ORDERABLES - D EVICE Final Result JAMAL TRUONG [facility] Department [place] [address] * COLONOSCOPY REPORT (05/22/2017) Anatomical Region Laterality Modality Other us Provider Scanning GI PROCEDURE ORDERABLES Final Result from Last 3 Months or Most Recently Relevant to Health Maintenance Insurance UHC MEDICARE ADVANTAGE [facility] MEDICARE Address: [facility] [address] [place] [address] [employer] MEDICARE AETNA MEDICARE Advance Directives For more information, please contact: [phone] * Full Code (Latest Code Status on File) Date Activated Date Inactivated Comments 03/27/2025 7:24 AM 03/27/2025 1:49 PM * Full Code Date Activated Date Inactivated Comments 06/26/2022 9:09 AM 06/26/2022 2:40 PM * Full Code Date Activated Date Inactivated Comments 04/27/2020 8:09 AM 04/27/2020 2:18 PM Care Teams Cremator Relationship Specialty Start Date End Date Jacob Castellano MD [address] [place] [address] PCP - General 03/20/17
--- OUTSIDE RECORDS SUMMARY | 2025-04-22 07:54 | XMS_ITS | Clinical Summary ---
Author Organization [facility] Care Team Providers Care Factory Expert Name Role Phone Benny Fair MD Primary Care Provider [phone] Allergies Active Allergy Reactions Criticality Noted Date [...] 02/24/2010 06/09/2010 Pure hypercholesterolemia - Managed by [facility]: LDL <100 03/20/2006 10/13/2011 Social History Tobacco Use Types Packs/Day Years Used Date Smoking Tobacco: Never Smokeless Tobacco: Never Comments No Sex and Gender Information Value Date Recorded Sex Assigned at Not on file Legal Sex Female 3:54 AM CAGE CASHIER Gender Identity Not on file Sexual Orientation [...] Recently Relevant to Health Maintenance Care Teams Factory Expert Relationship Specialty [place] [address] [place] [address] PCP - General 08/08/09
--- OUTSIDE RECORDS SUMMARY | 2025-04-22 07:54 | XMS_ITS | Encounter Summary ---
Author Organization [facility] Address [address] [place] [address] Phone Care Team Providers Care Online Affiliate Marketing Manager Name Role Phone Jacob Castellano MD Primary Care Provider [phone] Encounter Details Date Type Department Care Team [...] on file Legal Sex Female 3:51 AM DIRECTOR FOOD AND BEVERAGE Gender Identity Female 12/29/2020 4:15 PM CDT Sexual Orientation Straight 06/19/2022 8: 32 PM DIRECTOR FOOD AND BEVERAGE documented as of this encounter Plan of Treatment Not on file documented as of this encounter Procedures Procedure Name Priority Date/Time Associated Diagnosis Comments SCAN - LABS 10/21/2024 documented in this encounter Results * SCAN - LABS (10/21/2024) us Provider Scanning Final Result documented in this encounter Visit Diagnoses Not on filedocumented in this encounter Care Teams Online Affiliate Marketing Manager Relationship Specialty Start Date End Date Jacob Castellano MD [address] [place], [place] [id number] PCP - General 03/20/17 documented as of this encounter
--- OUTSIDE RECORDS SUMMARY | 2025-04-22 07:54 | XMS_ITS | Encounter Summary ---
Author Organization [facility] Address [address] [place] [address] Phone Care Team Providers Care Enterprise Resource Planner Name Role Phone Jacob Castellano MD Primary Care Provider [phone] Encounter Details Date Type Department Care Team [...] on file Legal Sex Female 3:51 AM PMP CERTIFIED PROJECT MANAGER Gender Identity Female 12/29/2020 4:15 PM CDT Sexual Orientation Straight 06/19/2022 8: 32 PM PMP CERTIFIED PROJECT MANAGER documented as of this encounter Plan of Treatment Not on file documented as of this encounter Procedures Procedure Name Priority Date/Time Associated Diagnosis Comments SCAN - LABS 03/12/2022 documented in this encounter Results * SCAN - LABS (03/12/2022) us Provider Scanning Final Result documented in this encounter Visit Diagnoses Not on filedocumented in this encounter Care Teams Enterprise Resource Planner Relationship Specialty Start Date End Date Jacob Castellano MD [address] [place] [address] PCP - General 03/20/17 documented as of this encounter
--- OUTSIDE RECORDS SUMMARY | 2025-04-22 07:54 | XMS_ITS | Encounter Summary ---
Author Organization [facility] Address [address] [place] [address] Care Team Providers Care Accounting Software Specialist Name Role Phone Jacob Castellano MD Primary Care Provider [phone] Encounter Details Date Type Department Care Team (Late st Contact Info) Description 04/04/2022 Prep for Procedure [facility] [address] [place], [place] [id number] Daniel Nickerson MD [address] [place] [address], [facility] [[email or web address] [address] [employer] [employer], [place] [id number] Social History Tobacco Use Types Packs/Day Years Used Date Smoking Tobacco: Never Alcohol Use Standard Drinks/Week Comments Yes 0 (1 standard drink = 0.6 oz pur e alcohol) 4-5xweek wisky and wine Comments No Sex and Gender Information Value Date Recorded Sex Assigned at Not on file Legal Sex Female 7:45 AM DIRECTOR INDUSTRIAL MUSEUM Gender Identity Not on file Sexual Orientation Not on file COVID-19 Exposure Response Date Recorded In the last 10 days, have yo u been in contact with someone who was confirmed or suspected to have Coronavirus/COVID-19? No / Unsure 04/06/2022 11:13 AM DIRECTOR INDUSTRIAL MUSEUM documented as of this encounter Plan of Treatment Not on file documented as of this encounter Visit Diagnoses Not on filedocumented in this encounter Care Teams Accounting Software Specialist Relationship Specialty Start Date End Date Jacob Castellano MD [address] [place] [address] PCP - General INTERNAL MEDICINE 03/23/21 documented as of this encounter
--- OUTSIDE RECORDS SUMMARY | 2025-04-22 07:54 | XMS_ITS | Encounter Summary ---
Author Organization [facility] Address [address] [place] [address] Phone Care Team Providers Care Environmental Control Administrator Name Role Phone Jacob Castellano MD Primary Care Provider [phone] Encounter Details Date Type Department Care Team [...] on file Legal Sex Female 3:51 AM DECORATING SUPERVISOR Gender Identity Female 12/29/2020 4:15 PM CDT Sexual Orientation Straight 06/19/2022 8: 32 PM DECORATING SUPERVISOR documented as of this encounter Plan of Treatment Not on file documented as of this encounter Procedures Procedure Name Priority Date/Time Associated Diagnosis Comments SCAN - LABS 04/22/2024 documented in this encounter Results * SCAN - LABS (04/22/2024) us Provider Scanning Edited Result - Final documented in this encounter Visit Diagnoses Not on filedocumented in this encounter Care Teams Environmental Control Administrator Relationship Specialty Start Date End Date Jacob Castellano MD [address] [place], [place] [id number] PCP - General 03/20/17 documented as of this encounter
--- OUTSIDE RECORDS SUMMARY | 2025-04-22 07:54 | XMS_ITS | Clinical Summary ---
Author Organization [facility] [employer] Address [address] [facility] [place] [address] Care Team Providers Care Button Puncher Name Role Phone Unavailable Primary Care Provider Unavailabl e Immunizations Immunization Administration Dates Next Due Pfizer Cominarty Covid-19 Prefilled Syringe (12+ yrs) 02/02/2025 Social History Tobacco Use Types Packs/Day Years Used Date Smoking Tobacco: Never Assessed Comments Unknown Sex and Gender Information Value Date Recorded Sex Assigned at Not on file Legal Sex Female 11:58 AM EDT Gender Identity Not on file Sexual Orientation Not on file Plan of Treatment Health Maintenance Due Date Last Done Comments Colorectal Cancer: COLONOSCO PY Screening every 10 yrs (or Modifier) 1950 Depression: Screening Annual ly using PHQ-2/9 in Adults 18 yrs or above (or HM Modifier)([facility]) 01/17/1970 Hepatitis C Virus Infection in Adolescents and Adults: Screening (or Modifier) ([facility]) 01/17/1970 SDOH Screening Reminder: Annabel baker for all adults ([facility]) 01/17/1970 Tobacco Smoking Cessation: i n Adults excluding Women: Behavioral and Pharmacotherapy Interventions ([facility]) 01/17/1970 DTaP/Tdap/Td Vaccines ([facility]) (1 - Tdap) 01/17/1971 Colorectal Cancer Screening 45 -75 Yrs (or HM Modifier) 01/17/1997 Colorectal Cancer: FLEXIBLE SIGMOIDOSCOPY Screening every 5 yrs 01/17/1997 Colorectal Cancer: Fecal Imm unochemical Test (FIT) Annually [facility] 01/17/1997 Colorectal Cancer: High-sens itivity gFOBT Screening Annually [facility] 01/17/1997 Colorectal Cancer: Stool Col oguard Screening every 3 yrs 01/17/1997 Colorectal Cancer:CT Colonog aiden Screening every 5 yrs 01/17/1997 Breast Cancer: Screening Annabel ually age 50-74 yrs (or HM Modifier)([facility]) 01/17/2002 Pneumococcal Vaccination Scr eening: Patients 50+ yrs of age ([facility]) (1 of 1 - PCV) 01/17/2002 Zoster/Shingles Vaccine Seri es Screening: Adults aged 18+ yrs (or HM Modifiers)([facility]) (1 of 2) 01/17/2002 Osteoporosis Screening to Pr event Fractures: Women aged 65 years+ ([facility]) 01/17/2017 Flu Vaccination: Ages 65+: Y early High Dose Recommended (or Modifier)([facility]) 12/05/2024 COVID-19 Vaccine Screening: Initial Series and Booster Status ([facility]) (2 - 2024- season) 2025 02/02/2025 RSV Vaccines (1 - 1-dose 75+ series) 01/17/2027 Medical Devices Not on file Insurance [employer]
--- OUTSIDE RECORDS SUMMARY | 2025-04-22 07:54 | XMS_ITS | Encounter Summary ---
Author Organization [facility] Address [address] [place] [address] Care Team Providers Care Yarn Examiner Skeins Name Role Phone Jacob Castellano MD Primary Care Provider Encounter Details Date Type Department Care Team (Late st Contact Info) Description 03/23/2021 Prep for Procedure [facility] [address] [place], [place] [id number] Nina Nickerson MD [address] [place] [address], [facility] [address] [place], [place] [id number] Social History Tobacco Use Types Packs/Day Years Used Date Smoking Tobacco: Never Smokeless Tobacco: Current Snuff Alcohol Use Standard Drinks/Week Comments Yes 0 (1 standard drink = 0.6 oz pur e alcohol) 1 drink a day Comments Unknown Sex and Gender Information Value Date Recorded Sex Assigned at Not on file Legal Sex Female 7:45 AM SCIENTIST/ENGINEER Gender Identity Not on file Sexual Orientation Not on file COVID-19 Exposure Response Date Recorded In the last month, have you been in contact with someone who was confirmed or suspected to have Coronavirus / COVID-19? No / Unsure 03/23/2021 1:03 PM SCIENTIST/ENGINEER documented as of this encounter Functional Status * Calculated C-SSRS Risk Score (Lifetime/Recent) Answer Date of Assessment Author Status No Risk Indicated 03/24/2021 9:05 AM Luanne Dejesus RN Active * [place] Suicide Severity Rating Scale (Screener/Recent Self-Report) Question Answer Date of Assessment Author Status 1. Wish to be (Past 1 Month) No 03/24/2021 9:05 AM Luanne Dejesus, RN Active 2. Non-Specific Active Suicidal Thoughts (Past 1 Month) No 03/24/2021 9:05 AM SCIENTIST/ENGINEER Luanne Navarro RN Active 6. Suicidal Behavior (Lifetime) No 03/24/2021 9:05 AM SCIENTIST/ENGINEER Luanne Navarro RN Active documented as of this encounter Plan of Treatment Not on file documented as of this encounter Results * ECG 12-Lead (03/23/2021 1:19 PM SCIENTIST/ENGINEER) 03/23/2021 1:19 PM SCIENTIST/ENGINEER Narrative [facility] RAD - 03/24/2021 6:34 PM SCIENTIST/ENGINEER [facility] Test Date: 2021-03-23 Pat Name: AGNIESZKA CRANDALL Department: Room: Gender: Female Clinical Safety Specialist: : 1950 Requested By: NINA NICKERSON Order Number: [id number] Reading MD: Nina Figueroa Measurements Intervals [place] Rate: 62 P: 62 NJ: 128 QRS: 43 QRSD: 90 T: 58 QT: 384 QTc: 391 Interpretive Statements SINUS RHYTHM LOW QRS VOLTAGE IN PRECORDIAL LEADS [QRS DEFLECTION < 1.0 mV IN CHEST LEADS] No previous ECG available for comparison NTIST/ENGINEER Procedure Note Nina Figueroa MD - 03/24/2021 [facility] Test Date: 2021-03-23 Pat Name: AGNIESZKA CRANDALL Department: Room: Gender: Female Clinical Safety Specialist: : 1950 Requested By: NINA NICKERSON Order Number: [id number] Nelly GIVENS: Nina Figueroa Measurements Intervals [place] Rate: 62 P: 62 NJ: 128 QRS: 43 QRSD: 90 T: 58 QT: 384 QTc: 391 Interpretive Statements SINUS RHYTHM LOW QRS VOLTAGE IN PRECORDIAL LEADS [QRS DEFLECTION < 1.0 mV IN CHESTLEADS] No previous ECG available for comparison NTIST/ENGINEER us Nina Nickerson MD ECG ORDERABLES Final Result [facility] RAD documented in this encounter Visit Diagnoses Diagnosis Preop testing- Primary Preoperative examination, unspecified Preop testing Preoperative examination, unspecified documented in this encounter Care Teams Yarn Examiner Skeins Relationship Specialty Start Date End Date Jacob Castellano MD [address] [place] [address] PCP - General INTERNAL MEDICINE 03/23/21 documented as of this encounter
--- OUTSIDE RECORDS SUMMARY | 2025-04-22 07:54 | XMS_ITS | Encounter Summary ---
Author Organization [facility] Address [address] [facility] [address] [place] [address] Phone Care Team Providers Care Core Winding Operator Name Role Phone Jacob Castellano MD Primary Care Provider [phone] Encounter Details Date Type Department Care Team (Late st Contact Info) Description 03/31/2025 Results Follow-Up [facility] Gastroenterology [address] [facility] [address], [address] [place] [address] Cecelia Richardson MD [address] [facility] [place] [address] Surgical pathology Social History Tobacco Use Types Packs/Day Years [...] on file Legal Sex Female 3:51 AM RETAIL OFFICE ASSOCIATE Gender Identity Female 12/29/2020 4:15 PM CDT Sexual Orientation Straight 06/19/2022 8: 32 PM RETAIL OFFICE ASSOCIATE documented as of this encounter Plan of Treatment Not on file documented as of this encounter Visit Diagnoses Not on filedocumented in this encounter Care Teams Core Winding Operator Relationship Specialty Start Date End Date Jacob Castellano MD [address] [place] [address] PCP - General 03/20/17 documented as of this encounter
--- OUTSIDE RECORDS SUMMARY | 2025-04-22 07:54 | XMS_ITS | Clinical Summary ---
Author Organization [facility] Address [facility] [place] [address] Care Team Providers Care Senior Data Developer Name Role Phone Jacob Castellano MD Primary Care Provider [phone] Allergies Active Allergy Reactions Criticality Noted Date [...] on file Legal Sex Female 7:45 AM PERFORATOR LOADER Gender Identity Not on file Sexual Orientation Not on file Last Filed Vital Signs Vital Sign Reading Time Taken Comments Blood Pressure 171/65 04/06/2022 4:00 PM PERFORATOR LOADER Pulse 57 04/06/2022 4:00 PM PERFORATOR LOADER Temperature 36.1 C (97 F) 04/06/2022 2:37 PM PERFORATOR LOADER Respiratory Rate 20 04/06/2022 4:00 PM PERFORATOR LOADER Oxygen Saturation 100% 04/06/2022 4:00 PM PERFORATOR LOADER Inhaled Oxygen Concentration - - Weight 77.6 kg (171 lb) 04/06/2022 11:38 AM PERFORATOR LOADER Height 170.2 cm (5' 7) 04/06/2022 11:38 AM PERFORATOR LOADER Body Mass Index 26.78 04/06/2022 11:38 AM PERFORATOR LOADER Plan of Treatment Health Maintenance Due Date Last Done Comments Colorectal Cancer Screening Colonoscopy (10 Years) 1950 Hepatitis C 01/17/1970 DTaP, Tdap and Td Vaccines ( 1 - Tdap) 01/17/1971 Mammogram Screening 1992 Pneumococcal Vaccine: 50+ Years (1 of 1 - PCV) 01/17/2002 Zoster Vaccines (1 of 2) 01/17/2002 Annual Medicare Wellness Visit 01/17/2017 Dexa Scan (General) 01/17/2017 COVID-19 Vaccine (4 - 2024-2 6 season) 2025 03/04/2021, 07/16/2020, 06/19/2020 Influenza Adult (#1) 2025 RSV Immunization or 60+ Years (1 - 1-dose 75+ series) 01/17/2027 Hepatitis A Vaccines Aged Out No long er eligible based on patient's age to complete this topic Meningococcal B Vaccine Aged Out No l onger eligible based on patient's age to complete this topic Meningococcal Vaccine Aged Out No wen wong eligible based on patient's age to complete this topic RSV Immunizations Under 20 Months Aged Out No longer eligible b ased on patient's age to complete this topic Medical Devices Implanted Type Area Electrician Technician Device Identifier Shelf Expiration Date Model / Serial / Lot 2.4 Mm Va-Lcp Two-Column Volar Distal Radius Plate Implanted:Qty: 1 on 03/24/2021 by Daniel Nickerson MD at [facility] Plate Right: Wrist SYNTHES 630 / / Description: 2.4 Mm Coretx Screw, Self Tapping, With T8 Stardrive Recess, 14mm Implanted:Qty: 2 on 03/24/2021 by Daniel Nickerson MD at [facility] Screw Right: Wrist SYNTHES 4 / / Description: 2.4 Mm Variable Angle Locking Screws, With T8 Stardrive Recess, 20mm Implanted:Qty: 1 on 03/24/2021 by Daniel Nickerson MD at [facility] Screw Right: Wrist SYNTHES 120 / / Description:120 2.4 Mm Variable Angle Locking Screws, With T8 Stardrive Recess, 18mm Implanted:Qty: 2 on 03/24/2021 by Daniel Nickerson MD at [facility] Screw Right: Wrist SYNTHES 118 / / Description: 2.4 Mm Cortex Screw, Self-Tapping, With T8 Stardrive Recess, 12mm Implanted:Qty: 1 on 03/24/2021 by Daniel Nickerson MD at [facility] Screw Right: Wrist SYNTHES 762 / / Description: 2.4 Mm Variable Angle Locking Screws, With T8 Star Drive Recess, 16mm Implanted:Qty: 1 on 03/24/2021 by Daniel Nickerson MD at [facility] Screw Right: Wrist SYNTHES 116 / / Description: 2.4mm Variable Angle Locking Screws, With T8 Stardrive Recess Implanted:Qty: 1 on 04/06/2022 by Daniel Nickerson MD at [facility] Left: Wrist SYNTHES 116 / / 2.4mm Variable Angle Locking Screws, With T8 Stardrive Recess Implanted:Qty: 2 on 04/06/2022 by Daniel Nickerson MD at [facility] Left: Wrist SYNTHES 02.210.118 / / 2.4mm Variable Angle Locking Screws, With T8 Stardrive Recess Implanted:Qty: 1 on 04/06/2022 by Daniel Nickerson MD at [facility] Left: Wrist SYNTHES .210.120 / / 2.4mm Cortex Screw, Self-Tapping, With T8 Stardrive Recess Implanted:Qty: 1 on 04/06/2022 by Daniel Nickerson MD at [facility] Left: Wrist SYNTHES 201.762 / / 2.4mm Cortex Screw, Self-Tapping, With T8 Stardrive Recess Implanted:Qty: 2 on 04/06/2022 by Daniel Nickerson MD at [facility] Left: Wrist SYNTHES 201.764 / / 2.4mm Va-Lcp Two-Column Volar Distal Radius Plates Implanted:Qty: 1 on 04/06/2022 by Daniel Nickerson MD at [facility] Left: Wrist SYNTHES 111.631 / / Explanted Type Area Electrician Technician Device Identifier Shelf Expiration Date Model / Serial / Lot Drill Bit, 1.8mm With Depth Kevin, Quick Coupling, 110 Mm Explanted:Qty: 1 on 03/24/2021 by Daniel Nickerson MD at [facility] Right: Wrist SYNTHES 310.509 / / Description:310.509 Plate Reduction Wire, 1.25 Plate Reduction Wire, Small Stop Explanted:Qty: 2 on 03/24/2021 by Daniel Nickerson MD at [facility] Right: Wrist SYNTHES .500. 10 / / Description:.500.10 Insurance [facility] [place] [address] Care Teams Senior Data Developer Relationship Specialty Start Date End Date Jacob Castellano MD [address] [place] [address] PCP - General INTERNAL MEDICINE 03/23/21
--- OUTSIDE RECORDS SUMMARY | 2025-04-22 07:54 | XMS_ITS | Encounter Summary ---
Author Organization [facility] [employer] [facility] Address [address] [place] [address] Phone Care Team Providers Care Ultrasonic Seaming Machine Operator Name Role Phone Jacob Castellano MD Primary Care Provider [phone] Encounter Details Date Type Department Care Team (Late st Contact Info) Description 03/31/2019 Orders Only [facility] Scanning, Provider Social History Tobacco Use Types Packs/Day Years Used Date Smoking Tobacco: Never Comments Unknown Sex and Gender Information Value Date Recorded Sex Assigned at Not on file Legal Sex Female 3:51 AM FILLING HAULER WEAVING Gender Identity Female 12/29/2020 4:15 PM CDT Sexual Orientation Straight 06/19/2022 8: 32 PM FILLING HAULER WEAVING documented as of this encounter Plan of Treatment Not on file documented as of this encounter Procedures Procedure Name Priority Date/Time Associated Diagnosis Comments SCAN - RADIOLOGY/IMAGING 03/31/2019 documented in this encounter Results * SCAN - RADIOLOGY/IMAGING (03/31/2019) Anatomical Region Laterality Modality Other us Provider Scanning Final Result documented in this encounter Visit Diagnoses Not on filedocumented in this encounter Care Teams Ultrasonic Seaming Machine Operator Relationship Specialty Start Date End Date Jacob Castellano MD [address] [place] [address] PCP - General 03/20/17 documented as of this encounter
[2025-04-22 08:08] LABS: Hematocrit 40.3 % (35.0-42.0); Hemoglobin 13.2 g/dL (11.7-13.8); Mean Corpuscular HGB Conc 32.8 g/dL (32-36); Mean Corpuscular Hemoglobin 29.1 pg (27.0-31.0); Mean Corpuscular Volume 89.0 fL (78.0-102.0); Platelet Count Result 157 K/mm3 (150-420); Red Blood Count 4.53 M/mm3 (4.20-5.40); White Blood Count 4.1 K/mm3 (4.8-10.8)
[2025-04-22 08:10] LABS: Add Urine Microscopic? YES; Appearance Urine Clear (Clear); Glucose Urine UA Negative (Negative); Leukocyte Esterase Ur 2+ (Negative); Nitrate Urine Positive (Negative); Specific Grav Ur 1.015 (1.010-1.020)
[2025-04-22 08:25] LABS: MALB Creatinine Ratio 11.7 mg/g (0-30)
[2025-04-22 08:42] LABS: Hemoglobin A1C 5.5 % (<5.7)
[2025-04-22 08:43] LABS: Alanine Aminotransferase 27 U/L (6-35); Albumin Level 4.3 g/dL (3.5-5.1); Alkaline Phosphatase 122 U/L (38-126); Anion Gap 7 mmol/L (4-12); Aspartate Amino Transferase 53 U/L (14-36); Bilirubin,Total 1.1 mg/dL (0.2-1.3); Blood Urea Nitrogen 16 mg/dL (7-17); Calcium 9.8 mg/dL (8.4-10.2); Carbon Dioxide 28 mmol/L (22-30); Chloride 105 mmol/L (98-107); Cholesterol 224 mg/dL (0-200); Creatine Kinase 41 U/L (30-135); Estimated Glomerular Filt Rate > 60; Glucose 130 mg/dL (65-110); HDL Direct 96 mg/dL; Osmolality Calculated 293 mOsm/kg (285-295); Potassium 4.2 mmol/L (3.4-5.0); Sodium 140 mmol/L (137-145); Total Protein 7.1 g/dL (6.3-8.2); Triglycerides 111 mg/dL (<150)
[2025-04-22 08:59] LABS: Free T4 Free Thyroxine 1.65 ng/dL (0.78-2.19)
[2025-04-22 09:12] LABS: Thyroid Stimulating Hormone 3.090 uIU/mL (0.465-4.680)
== END 2025-04-22 07:45 | disposition home or self-care (01) ==
PROVIDERS: PCP Internal Medicine
DX: E11.9 Type 2 diabetes mellitus without complications (principal); I10 Essential (primary) hypertension; E78.2 Mixed hyperlipidemia; R53.82 Chronic fatigue, unspecified; K74.60 Unspecified cirrhosis of liver; M81.0 Age-related osteoporosis without current pathological fracture; N39.0 Urinary tract infection, site not specified
CPT/HCPCS: 36415; 80053; 80061; 81001; 82043; 82306; 82550; 83036; 84439; 84443; 85027; 87077; 87086; 87088; 87186